=== PATIENT | male | born 1945 | race Caucasian/White ===

== ENCOUNTER 2024-06-22 15:14 | Emergency (ER) | payer MEDICARE, OTHER, SELFPAY ==
[2024-06-22 16:18] VITALS: BP 152/88; PULSE 89; RESP 18; TEMP 36.4; O2SAT 97; BMI 32.3
--- NOTE | 2024-06-22 16:19 | ED.GENADULT ---
HPI - General Adult General Chief complaint: Urogenital-Male Stated complaint: cant urinate Time Seen by Provider: 06/22/24 20:52 Source: patient Limitations: no limitations History of Present Illness ED Provider: Ana Ackerman PA-C HPI narrative: 78-year-old male presents with urinary retention since 3:00 a.m.. Patient has not had this issue before. He is extremely uncomfortable. Denies recent dysuria, hematuria or fever. No nausea vomiting. Related Data Allergies Allergy/AdvReac Type Severity Reaction Status Date / Time No Known Allergies Allergy Verified 06/22/24 16:20 Review of Systems Review of Systems: Yes all other systems are reviewed and are negative Constitutional: Constitutional: Denies fatigue and Denies fever(s) Cardiovascular: Cardiovascular: Denies chest pain and Denies dyspnea Respiratory: Respiratory: Denies cough and Denies dyspnea Gastrointestinal: Gastrointestinal: Reports abdominal pain, Denies nausea and Denies vomiting Genitourinary: Genitourinary: Denies hematuria, Reports difficulty urinating and Denies dysuria Musculoskeletal: Musculoskeletal: Denies back pain Endocrine: Endocrine: Denies fatigue PMF Past Medical History Attestation statement: The following information was validated with the patient. Social History Social History Advance Directives: No Advance Directives Information Provided: No Do you have a plan to hurt others: No Plan Physical Exam ED Vital Signs: Vital Signs - 24 hr 06/22/24 16:18 Temperature 97.6 F Pulse Rate 89 Respiratory Rate 18 Blood Pressure 152/88 H Pulse Oximetry 97 Oxygen Delivery Method Room Air BMI result Body Mass Index 32.3 Const Other: Alert Orientation/consciousness: patient oriented x3 Resp Effort & Inspection: normal respiratory effort Cardio Other: normal peripheral perfusion Skin Other: warm dry no rash Neuro General: patient oriented x3, gait normal, no focal motor deficits and CN's II-XI intact bilaterally Psych Other: cooperative Course Course Course Narrative: This is a rapid medical exam performed by Faiza Paz NP: Additional HPI, ROS, PE not included below will be deferred to primary provider. Patient is a 78-year-old male presenting with complaint of no urination since 3am, pain to urethral meatus, states every time he tries to urinate which is every 15 minutes or so, nothing comes out. Denies fevers. On ASA, not otherwise anticoagulated. Plan: labs, bladder scan Medical Decision Making Medical Decision Making [facility] Narrative: 78-year-old male presents with urinary retention since 3:00 a.m.. Patient has not had this issue before. He is extremely uncomfortable. Denies recent dysuria, hematuria or fever. No nausea vomiting. no known chronic issues, he likely has BPH History: Per patient I have considered the following differential diagnoses: Urinary retention secondary to BPH, bladder mass, renal colic, Plan: They perform bedside bladder scan he is greater than 600 mL, we will place a Ackerman. Screening labs were already obtained, we will collect a urine sample at this time. The patient was not having any back pain nausea vomiting fever to suggest an obstructing kidney stone. He has not had any painful urination or hematuria, to suggest a urinary tract infection. He has not had any known pathology of the bladder. We will hold on imaging for now. I have independently reviewed the following tests: Labs: No leukocytosis, not anemic, no electrolyte abnormality, urine not infected Lab Data 06/22/24 16:32 06/22/24 16:32 Labs: Lab Results 06/22/24 06/22/24 Range/Units 16:32 21:56 WBC 7.1 (4.8-10.8) X10*3/uL RBC 5.22 (4.60-5.80) X10*6/uL Hgb 15.8 (14.0-18.0) g/dl Hct 48.2 (42.0-52.0) % MCV 92.3 (80.0-98.0) fL MCH 30.3 (27.0-33.0) pg MCHC 32.8 (31.0-36.0) g/dl RDW 13.1 (11.0-16.0) % Plt Count 168 (160-400) X10*3/uL MPV 9.3 L (9.4-12.4) fL Immature Gran % (Auto) 0.1 (0.0-0.4) % Neut % (Auto) 70.8 (45-73) % Lymph % (Auto) 17.3 L (20-40) % [place] % (Auto) 9.4 (2-11) % Eos % (Auto) 1.4 (0-4) % Baso % (Auto) 1.0 (0-2) % Lymph # (Auto) 1.2 (1.2-4.9) X10*3/uL [place] # (Auto) 0.7 (0.1-1.2) X10*3/uL Eos # (Auto) 0.1 (0.0-0.4) X10*3/uL Baso # (Auto) 0.1 (0.0-0.2) X10*3/uL Abs Immat Gran (auto) 0.01 (0.00-0.03) X10*3/uL Absolute Neuts (auto) 5.0 (2.0-8.3) x10*3/uL Absolute Nucleated RBC 0.000 (0.0-0.012) X10*3/uL Nucleated RBC % (auto) 0.0 (0.0-0.2) /100WBC PT 13.0 H (10.9-12.4) SEC INR 1.1 (0.9-1.1) Sodium 144 (135-145) mmol/L Potassium 4.7 (3.3-5.1) mmol/L Chloride 105 (96-108) mmol/L Carbon Dioxide 30 H (22-29) mmol/L Anion Gap 14 (12-20) BUN 12 (9-16) mg/dL Creatinine 1.06 (0.5-1.4) mg/dL Estim Creat Clear Calc 60.5 Estimated GFR > 60 Random Glucose 103 (60-115) mg/dL Calcium 9.4 (8.4-10.2) mg/dL Total Bilirubin 0.5 (0.0-1.0) mg/dL AST 25 (5-37) U/L ALT 16 (0-40) U/L Alkaline Phosphatase 67 (39-117) U/L Total Protein 8.2 H (6.5-8.0) g/dL Albumin 4.3 (3.5-5.0) g/dL Urine Color Yellow Urine Appearance Clear Urine pH 5.5 (5.0-9.0) Ur Specific [place] 1.015 (1.005-1.025) Urine Protein 300 (3+) H (Neg-Trace) mg/dL Urine Glucose (UA) Negative (Negative) mg/dL Urine Ketones Negative (Negative) mg/dL Urine Blood Small (1+) H (Negative) Urine Nitrite Negative (Negative) Ur Leukocyte Esterase Negative (Negative) Urine RBC 6-10 H (0-2) /HPF Urine WBC 0-5 (0-5) /HPF Ur Squamous Epith Cells 0-2 (0-2) /HPF Urine Bacteria None Seen (None Seen) Hyaline Casts 0-2 (0-2) /LPF Discharge Plan Discharge Clinical Impression: Acute urinary retention Patient Disposition: Home, Self-Care Instructions: Urinary Retention in Men (ED), Ackerman Catheter Placement and Care (ED) Additional Instructions: all of your screening labs were normal, the urine is not infected. You need to keep the Ackerman catheter in place until you follow up with our urology service. Call them tomorrow to make a follow up appointment. Referrals: Shaun Yeboah MD [Physician] - (new urinary retention, ackerman placed) Print Language: Japanese
[2024-06-22 16:56] LABS: MANUAL DIFF FLAG NO
[2024-06-22 16:58] LABS: Basophils Absolute Auto 0.1 X10*3/uL (0.0-0.2); Eosinophils Absolute Auto 0.1 X10*3/uL (0.0-0.4); Eosinophils Percent Auto 1.4 % (0-4); Hematocrit 48.2 % (42.0-52.0); Hemoglobin 15.8 g/dl (14.0-18.0); Imm Gran Abs Auto 0.01 X10*3/uL (0.00-0.03); Imm Gran Pct Auto 0.1 % (0.0-0.4); Lymphocytes Absolute Auto 1.2 X10*3/uL (1.2-4.9); Lymphocytes Percent Auto 17.3 % (20-40); Mean Corpuscular HGB Conc 32.8 g/dl (31.0-36.0); Mean Corpuscular Hemoglobin 30.3 pg (27.0-33.0); Mean Corpuscular Volume 92.3 fL (80.0-98.0); Mean Platelet Volume 9.3 fL (9.4-12.4); Monocytes Absolute Auto 0.7 X10*3/uL (0.1-1.2); Monocytes Percent Auto 9.4 % (2-11); Neutrophils Percent Auto 70.8 % (45-73); Platelet Count 168 X10*3/uL (160-400); Red Blood Count 5.22 X10*6/uL (4.60-5.80); Red Cell Distribution Width 13.1 % (11.0-16.0); White Blood Count 7.1 X10*3/uL (4.8-10.8)
[2024-06-22 17:07] LABS: INTERNATIONAL NORM RATIO 1.1 (0.9-1.1)
[2024-06-22 17:15] LABS: Alanine Aminotransferase 16 U/L (0-40); Albumin Level 4.3 g/dL (3.5-5.0); Alkaline Phosphatase 67 U/L (39-117); Anion Gap 14 (12-20); Aspartate Amino Transferase 25 U/L (5-37); Bilirubin Total 0.5 mg/dL (0.0-1.0); Blood Urea Nitrogen 12 mg/dL (9-16); Calcium 9.4 mg/dL (8.4-10.2); Carbon Dioxide 30 mmol/L (22-29); Chloride 105 mmol/L (96-108); Creatinine Clr Calc Pharmacy 60.5; Estimated Glomerular Filt Rate > 60; Glucose Random 103 mg/dL (60-115); Potassium 4.7 mmol/L (3.3-5.1); Sodium 144 mmol/L (135-145); Total Protein 8.2 g/dL (6.5-8.0)
--- OUTSIDE RECORDS SUMMARY | 2024-06-22 20:10 | XMS_ITS | Encounter Summary ---
Author Organization [employer] Address [address] [place] [address] Care Team Providers Care Distribution Warehouse Manager Name Role Phone Sharri Mills MD Primary Care Provider [phone] Reason for Visit * Auth/Cert (Routine) Specialty Diagnoses / Procedures Referred By Contac t Referred To Contact Diagnoses Aortic valve stenosis, etiology of cardiac valve disease unspecified Coronary artery disease involving mcgrath coronary artery of mcgrath heart without angina pectoris Procedures [place] CORONARY ANGIO/LV GRAM/LT HEART CATH Left heart cath / Coronary angiography Mandy Hernandez MD [address] [place] [address] Dr Limon [address] [place] [address] Phone: tel: fax: [facility] S[facility] [address] [place] [address] Phone: tel: Referral ID Status Reason Start Date Expiration Date Visits Re quested Visits Authorized [id number] 1 1 Encounter Details Date Type Department Care Team (Latest Contact Info) Description 06/10/2024 7:23 AM EST - 06/10/2024 2:07 PM EST Hospital Encounter [facility] [address] [place] [address] Mandy Hernandez MD [address] [place] [address] Dr Limon [address] [place] [id number] Aortic valve stenosis, etiology of cardiac valve disease unspecified; Coronary artery disease involving mcgrath coronary artery of mcgrath heart without angina pectoris; Hairy cell leukemia, in remission (CMS/HCC); Asbestosis (CMS/HCC); Type 2 diabetes mellitus with stage 3 chronic kidney disease, without long-term current use of insulin, unspecified whether stage 3a or 3b CKD ([facility]) Discharge Disposition: Home or Self Care Social History Tobacco Use Types Packs/Day Years Used Date Smoking Tobacco: Some Days Cigarettes Started: 1960 Smokeless Tobacco: Never Tobacco Cessation:Ready to Q uit: Not Asked; Counseling Given: Not Answered Alcohol Use Standard Drinks/Week Comments Yes 12 (1 standard drink = 0.6 oz pu re alcohol) 12 cans of beer weekly per pt Sex and Gender Information Value Date Recorded Sex Assigned at Male 06/08/2024 11:45 AM EST Legal Sex Male 10:29 AM EST Gender Identity Male 06/08/2024 11:45 AM EST Sexual Orientation Straight 06/08/2024 11 :45 AM EST documented as of this encounter Last Filed Vital Signs Vital Sign Reading Time Taken Comments Blood Pressure 125/73 06/10/2024 1:00 PM EST Pulse 86 06/10/2024 1:00 PM EST Temperature 36.1 ??C (96.9 ??F) 06/10/2024 7:52 AM ES T Respiratory Rate 17 06/10/2024 1:00 PM EST Oxygen Saturation 97% 06/10/2024 1:00 PM EST Inhaled Oxygen Concentration - - Weight - - Height - - Body Mass Index - - documented in this encounter Medications at Time of Discharge albuterol HFA (PROAIR HFA ; PROVENTIL HFA ; VENTOLIN HFA) 90 mcg/actuation inhaler Inhale 2 puffs by mouth 4 (four) times a day. 10/01/2021 aspirin 325 mg tablet Take 1 tablet (325 mg total) by mouth daily. insulin glargine (Lantus Solostar U-100 Insulin) 100 unit/mL (3 mL) injection pen Take 34-36 units at bedtime 30 mL 2 04/26/2024 isosorbide mononitrate (IMDUR) 30 mg 24 hr tablet Take 3 tablets (90 mg total) by mouth 1 (one) time each day. 270 each 1 03/23/2024 lisinopriL (PRINIVIL,ZESTRIL ) 20 mg tablet Take 1 tablet (20 mg total) by mouth 1 (one) time each day. 90 each 1 03/23/2024 metFORMIN (GLUCOPHAGE) 500 mg tablet Take 1 tablet (500 mg total) by mouth 2 (two) times a day with meals. 180 each 1 03/23/2024 metoprolol succinate (TOPROL-XL) 50 mg 24 hr tablet Take 1 tablet (50 mg total) by mouth 1 (one) time each day. Do not crush or chew. 90 each 1 03/23/2024 nitroglycerin (NITROSTAT) 0.[address] 1 tablet (0.4 mg total) under the tongue every 5 (five) minutes if needed. 12/04/2021 omeprazole (PriLOSEC) [address] capsule Take 1 capsule (20 mg total) by mouth 1 (one) time each day. Do not crush or chew. 90 each 1 03/23/2024 pravastatin (PRAVACHOL) 40 mg tablet Take 1 tablet (40 mg total) by mouth 1 (one) time each day. 90 each 1 03/23/2024 tamsulosin (FLOMAX) 0.4 mg 24 hr capsule Take 1 capsule (0.4 mg total) by mouth 1 (one) time each day. Capsules should be taken 30 minutes following the same meal each day. 90 each 1 03/23/2024 Trelegy Ellipta 100-62.5-25 mcg inhaler Inhale 1 puff (100 mcg total) by mouth 1 (one) time each day. 07/10/2023 Trulicity 3 mg/0.5 mL pen injector injectionIndicati ons:Type 2 diabetes mellitus with stage 3 chronic kidney disease, without long-term current use of insulin, unspecified whether stage 3a or 3b CKD ([facility]) Inject 0.5 mL (3 mg total) under the skin 1 (one) time per week. 6 mL 1 03/23/2024 documented as of this encounter Discharge Disposition Disposition Code Departure Means Destination Home or Self Care documented in this encounter H&P Notes * Mandy Hernandez MD - 06/10/2024 9:16 AM EST History Of Present Illness (include Chief Complaint): Cristobal Balderas is a 78 y.o. male presenting with shortness of breath and fatigue due to severe aortic stenosis and is scheduled for left and right heart catheterization as an evaluation prior to Transcatheter aortic valve replacement possibly considering age and other comorbidities. The risk and benefit of the procedure have been discussed with the patient. No contrast allergy. Past Medical History: He has a past medical history of Alcohol use disorder, severe, dependence ([facility]/HCC) (06/30/2019), Allergic rhinitis, Anxiety, Aortic stenosis, Asbestosis ([facility]), CAD (coronary artery disease), COPD (chronic obstructive pulmonary disease) ([facility]), 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 ([facility]), 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[facility]), Hearing loss, Hypercholesteremia, Hypertension, Microalbuminuria, Nocturnal hypoxemia due to emphysema ([facility]), NETTA (obstructive sleep apnea), NETTA (obstructive sleep apnea), Prostatism, Pulmonary nodules, and Splenomegaly. Surgical History: He has a past surgical history that includes Colonoscopy (08/12/2014) and angioplasty. Family History: family history includes Cataracts in his mother; Diabetes in his father. Social History: He reports that he has been smoking cigarettes. He started smoking about 64 years ago. He has neverused smokeless tobacco. He reports current alcohol use of about 12.0 standard drinks of alcohol perweek. He reports that he does not use drugs. Allergies: Patient has no known allergies. Home Medications: Medications Prior to Admission Medication Sig Dispense Refill Last Dose/Taking albuterol HFA (PROAIR HFA ; PROVENTIL HFA ; VENTOLIN HFA) 90 mcg/actuation inhaler Inhale 2 puffs by mouth 4 (four) times a day. More than a month aspirin 325 mg tablet Take 1 tablet (325 mg total) by mouth daily. 06/05/2024 insulin glargine (Lantus Solostar U-100 Insulin) 100 unit/mL (3 mL) injection pen Take 34-36 units at bedtime 30 mL 2 06/05/2024 isosorbide mononitrate (IMDUR) 30 mg 24 hr tablet Take 3 tablets (90 mg total) by mouth 1 (one) time each day. 270 each 1 06/05/2024 lisinopriL (PRINIVIL,ZESTRIL) 20 mg tablet Take 1 tablet (20 mg total) by mouth 1 (one) time each day. 90 each 1 06/05/2024 metFORMIN (GLUCOPHAGE) 500 mg tablet Take 1 tablet (500 mg total) by mouth 2 (two) times a day withmeals. 180 each 1 06/05/2024 metoprolol succinate (TOPROL-XL) 50 mg 24 hr tablet Take 1 tablet (50 mg total) by mouth 1 (one) time each day. Do not crush or chew. 90 each 1 06/05/2024 nitroglycerin (NITROSTAT) 0.[address] 1 tablet (0.4 mg total) under the tongue every 5 (five) minutes if needed. More than a month omeprazole (PriLOSEC) [address] capsule Take 1 capsule (20 mg total) by mouth 1 (one) time each day.Do not crush or chew. 90 each 1 06/05/2024 pravastatin (PRAVACHOL) 40 mg tablet Take 1 tablet (40 mg total) by mouth 1 (one) time each day. 90each 1 06/05/2024 tamsulosin (FLOMAX) 0.4 mg 24 hr capsule Take 1 capsule (0.4 mg total) by mouth 1 (one) time each day. Capsules should be taken 30 minutes following the same meal each day. 90 each 1 More than a month Trelegy Ellipta 100-62.5-25 mcg inhaler Inhale 1 puff (100 mcg total) by mouth 1 (one) time each day. More than a month Trulicity 3 mg/0.5 mL pen injector injection Inject 0.5 mL (3 mg total) under the skin 1 (one) timeper week. 6 mL 1 05/31/2024 Review of Systems Review of system: Constitutional: Generalized fatigue Eyes: Denies blurred vision, discharge, eye irritation, spots in vision, vision loss Head and Neck: Denies any headache, neck pain Ears, Nose, Mouth, Throat: No issues Cardiovascular: Denies chest pain/pressure, claudication, irregular heart beat, orthopnea, palpitations, syncope Respiratory: Shortness of breath Gastrointestinal: Denies any abdominal distention, pain, black stools, diarrhea, dysphagia, vomiting Genitourinary: Denies dysuria, flank pain Musculoskeletal: Denies any joint pain or swelling other than mention in HPI Integumentary: Denie any skin rash or ulcer, pruritus Neurological: Denies any abnormal gait or focal weakness, headache, numbness, seizures, slurred speech Psychiatric: Denies any delusions, emotional problems, homicidalideation, suicidal ideation Hematologic: Denies any bleeding tendency, hemorrhage Last Recorded Vitals: Blood pressure (!) 144/86, pulse 102, temperature 36.1 ??C (96.9 ??F), temperature source Temporal,SpO2 100%. Physical Exam Physical Exam: Appearance: No Acute Distress, Alert Head Exam: Normocephalic and Atraumatic Eyes: Mild Palor, Sclera Anicteric, PERRL, EOMI Neck: Supple, Non-tender, No carotid bruit, thyromegaly or lymphadenopathy Pulmonary: No Accessory Muscle Use, clear to auscultate bilaterally Cardiovascular: JVD/Rhythm/Heart Sound/Added sound-S1 and S2 regular rate and rhythm, grade 1 x 6 systolic murmur with muffled second heart sound Abdominal Inspection: Normal, Soft, Non-tender, Bowel Sounds Present, No Hepatosplenomegaly Rectal Exam: Deferred Extremity: Peripheral Pulses are palpable and symmetrical, no leg edema Musculoskeletal: No obvious joint pain, swelling or deformity Skin: Skin Color Normal, No rash or visible ulcer on limited examination Hematological: No lymphadenopathy or mass Psychiatry: anxiety +, no delusion Relevant Results: Assessment/Plan Active Problems: CAD (coronary artery disease) Aortic stenosis Severe aortic stenosis; preprocedural evaluation with left and right heart catheterization: Echocardiogram and overall clinical picture indicates severe symptomatic aortic stenosis. Echocardiogram showed mean gradient of 42 mmHg. Will plan for left and right heart catheterization and subsequently made the patient in the office for TAVR evaluation. documented in this encounter Procedure Notes * Nenita العلي RN - 06/10/2024 1:11 PM EST Tr band off. Reviewed instructions with pt and . * Jami Bowers RN - 06/10/2024 12:04 PM EST 2 ml released from T R band no oozing or hematoma noted. * Nenita العلي RN - 06/10/2024 10:15 AM EST In recovery awake alert oriented no c/o tr band on right wrist and venous sheath to right brachial intact no bleeding hematoma. Given water. documented in this encounter Plan of Treatment Upcoming Encounters Date Type Department Care Team (Late st Contact Info) Description 06/23/2024 11:20 AM EST Consult [facility] Card[facility] [address] [place] [address] [address] [place] [phone] Mandy Hernandez MD [address] [place] [address] Dr [address] [place] [address] 07/12/2024 9:00 AM EDT Office Visit [facility] Hematology Oncology [address] [place] [address] Kt Roa MD [address] [place] [address] 08/06/2024 9:00 AM EDT Ancillary Procedure [facility] Cardiology [facility] [address] [facility] [address] [place] [address] 08/25/2024 8:00 AM EDT Office Visit Endocrinology [address] [phone] Pippa Marte PA [address] [place] [address] 09/23/2024 8:00 AM EDT Office Visit [facility] - [address] [phone] Ne Summers PA [address] [place] [address] 01/06/2025 1:00 PM EDT Office Visit Nephrology - [place] [address] [place] [address] Bharath Gonzalez MD [address] [place] [address] documented as of this encounter Procedures Procedure Name Priority Date/Time Associated Diagnosis Comments CARDIAC PROCEDURE Routine 06/10/2024 10: 07 AM EST Aortic valve stenosis, etiology of cardiac valve disease unspecified Coronary artery disease involving mcgrath coronary artery of mcgrath heart without angina pectoris POCT ARTERIAL CARDIAC CATH Routine 06/10/2024 9:58 AM EST POCT ARTERIAL CARDIAC CATH Routine 06/10/2024 9:41 AM EST PROCEDURAL ECG Routine 06/10/2024 8:23 AM EST PROTHROMBIN TIME WITH INR STAT 06/10/2024 8:14 AM EST COMPLETE BLOOD COUNT STAT 06/10/2024 8:14 AM EST BASIC METABOLIC PANEL STAT 06/10/2024 8:14 AM EST documented in this encounter Results * LEFT AND RIGHT HEART CATH / CORONARY ANGIOGRAPHY (06/10/2024 10:07 AM EST) Anatomical Region Laterality Modality X-Ray Angiograph y Narrative 06/11/2024 10:12 AM EST Outpatient TAVR evaluation with CT scan TAVR protocol and cardiothoracic surgery evaluation. Continue medical management for coronary artery disease. Coronary Findings Diagnostic Dominance: Right Left Main: The vessel exhibits minimal luminal irregularities. Left Anterior Descending: The vessel exhibits minimal luminal irregularities. Left Circumflex: The vessel exhibits minimal luminal irregularities. Right Coronary Artery: The vessel exhibits minimal luminal irregularities. Intervention No interventions have been documented. Study Details Pre-TAVR Cardiac Cath with left and right heart cath Cardiac Cath Measurements Pressure measurements: RA pressure = 7 mmHg. RV pressure = 40/6; 14 mmHg. PA pressure = 37/15; 25 mmHg. PCW pressure = 9 mmHg. O2 Sats: PA O2 sat = 90%. PV O2 sat = 60%. Calculated measurements: Vijay Cardiac output = 3.9 L/min. Vijay Cardiac index = 1.9 L/min/m2. Cath Recommendations Recommendations: routine post-cath care, continue medical management and Will consider TAVR protocol CT scan as outpatient and cardiothoracic surgery evaluation for TAVR.. Clinical Background 78 y.o. old male with past medical history of coronary artery disease, hypertension, aortic stenosis, hypercholesterolemia, type 2 diabetes, obesity and COPD close complaint of shortness of breath. Stress echocardiogram with mean gradient of 42 mmHg and because of 4.1%. He scheduled for left and right heart catheterization with coronary angiogram. Procedure Details Date of procedure: 06/10/2024 Procedures: left catheterization with coronary angiogram, right heart catheterization Description of the procedure: An informed consent was obtained. An appropriate timeout was performed and patient was medicated with fentanyl and Versed. Local anesthesia was obtained with lidocaine subcutaneously. Using a modified Seldinger technique was used to place an arterial sheath into the right radial artery. A short tipped J-wire was inserted through the sheath and a tiger coronary diagnostic catheter was advanced over the wire. The angiogram was performed using various fluoroscopic angles with hand injections. At the end of the procedure, the catheter was removed over the wire. After completion of angiography, the diagnostic catheters were removed over the J-tipped wire. The TR band was placed and the radial artery sheath was removed with proper technique in an aseptic manner. Radial pulse was checked. No immediate complications were identified with good radial pulse. Right catheterization was performed with right breast vein access under ultrasonographic evidence. Wenona-Margy catheter was used for better catheterization. Findings: Hemodynamics: PA 37/50 mg artery, mean 25 mmHg PCW 9 mmHg RV 40/6 mmHg, mean 14 mmHg RA 7 mmHg Cardiac output 3.8 L/min Frequent index 1.9 L/min/m?? Coronary anatomy: 1. Left main coronary artery: Minimal luminal irregularities 2. Left anterior descending artery: Minimal irregularities. 3. Left circumflex artery: Minimal luminal irregularities. Patent stent in the OM1. 4. Right coronary artery: Minimal irregularities. Dominant vessel giving rise to PDA. Impression: Abdomen troponin indicates that patient does not have any progression of coronary disease and the OM1 stent is widely patent. He only needs aortic valve replacement for severe stenosis therapy by TAVR considering his age and other comorbidities. Plan: Will consider TAVR protocol CT scan as outpatient and cardiothoracic surgery evaluation for TAVR. Mandy Hernandez MD [facility] us Tiffany Chapman [employer] IN[employer]IC[employer] CV CARDIAC CATH PROCED URES Final Result * POCT Cardiac cath blood gas (06/10/2024 9:58 AM EST) pCO2 Cath POCT 50.1 mmHg 06/10/2024 10:00 AM EST [facility] pO2 Cath POCT 62 mmHg 06/10/2024 10:00 AM EST [facility] SO2 Cath POCT 90 % 06/10/2024 10:00 AM EST [facility] Sample Site POCT Aorta 06/10/2024 10:00 AM EST [facility] Device POCT [id number] 06/10/2024 10:00 AM EST [facility] FIO2 POCT 21.0 % 06/10/2024 10:00 AM EST [facility] POCT Comment ROOM AIR 06/10/2024 10:00 AM EST [facility] Blood Aortic structure / Unknown 06/10/2024 9:58 AM EST 06/10/2024 10:02 AM EST us Mandy Hernandez MD LAB POINT OF CARE TE ST DOCKED DEVICE UNSOLICITED RESULTS Final Result [facility] [address] [place] [address], * POCT Cardiac cath blood gas (06/10/2024 9:41 AM EST) pCO2 Cath POCT 51.5 mmHg 06/10/2024 10:00 AM EST [facility] pO2 Cath POCT 32 mmHg 06/10/2024 10:00 AM EST [facility] SO2 Cath POCT 60 % 06/10/2024 10:00 AM EST [facility] Sample Site POCT Pulmonary Artery 06/10/2024 10:00 AM EST [facility] Device POCT [id number] 06/10/2024 10:00 AM EST [facility] FIO2 POCT 21.0 % 06/10/2024 10:00 AM EST [facility] POCT Comment ROOM AIR 06/10/2024 10:00 AM EST [facility] Blood Pulmonary artery structure / Unknown 06/10/2024 9:41 AM EST 06/10/2024 10:02 AM EST Mandy Hernandez MD LAB POINT OF CARE TE ST DOCKED DEVICE UNSOLICITED RESULTS Final Result [facility] [address] [place] [address], * ECG 12 lead - Procedural (No Charge) (06/10/2024 8:23 AM EST) Ventricular Rate ECG 99 BPM GEMUSE Atrial Rate 99 BPM GEMUSE P-R Interval 146 ms GEMUSE QRS Duration 88 ms GEMUSE Q-T Interval 376 ms GEMUSE QTc 482 ms GEMUSE P Wave [place] 48 degrees GEMUSE R [place] 121 degrees GEMUSE T [place] 81 degrees GEMUSE ECG Interpretation Normal sinus rhythm Prolonged QT Abnormal ECG When compared with ECG of 18-NOV-2001 06:57, Vent. rate has increased BY ??38 BPM Nonspecific T wave abnormality now evident in Anterior leads Confirmed by NEHA HUBER ([id number]) on 06/13/2024 8:45:22 AM GEMUSE 06/10/2024 8:23 AM EST 06/13/2024 8:45 AM EST us Mandy Hernandez MD ECG ORDERABLES Final Result GEMUSE * (ABNORMAL) Protime-INR (06/10/2024 8:14 AM EST) Protime 14.1(H) 10.6 - 13.9 sec LAB COAGULATION METHOD 06/10/2024 8:32 AM EST [facility] INR 1.1 LAB COAGULATION METHOD 06/10/2024 8:32 AM [facility] Blood Venous blood specimen / Unknown Venipuncture / Unknown 06/10/2024 8:14 AM EST 06/10/2024 8:20 AM EST Mandy Hernandez MD LAB BLOOD ORDERABLES Final Res ult Performing Organization Address [facility] Co de Phone Number [facility] [address] [place] [address], * (ABNORMAL) Basic metabolic panel (06/10/2024 8:14 AM EST) Pathologist [facility] Sodium 141 133 - 145 mmol/L LAB CHEMISTRY METHOD 06/10/2024 8:49 AM [facility] Potassium 4.0 3.5 - 5.5 mmol/L LAB CHEMISTRY METHOD 06/10/2024 8:49 AM [facility] Chloride 110 96 - 110 mmol/L LAB CHEMISTRY METHOD 06/10/2024 8:49 AM [facility] CO2 26 21 - 32 mmol/L LAB CHEMISTRY METHOD 06/10/2024 8:49 AM [facility] Anion Gap 5 3 - 11 LAB CHEMISTRY METHOD 06/10/2024 8:49 AM [facility] Glucose 163(H) 70 - 100 mg/dL LAB CHEMISTRY METHOD 06/10/2024 8:49 AM [facility] BUN 18 5 - 25 mg/dL LAB CHEMISTRY METHOD 06/10/2024 8:49 AM [facility] Creatinine 1.24 0.70 - 1.30 mg/dL LAB CHEMISTRY METHOD 06/10/2024 8:49 AM [facility] eGFR 60 >=60 mL/min/1. 73m2 LAB CHEMISTRY METHOD 06/10/2024 8:49 AM [facility] Comment:Calculation based on the??Chronic Kidney Disease Epidemiology Collaboration (CKD-EPI) equation refit??without adjustment for race. BUN/Creatinine Ratio 14.5 LAB CHEMISTRY METHOD 06/10/2024 8:49 AM [facility] Calcium 9.0 8.5 - 10.5 mg/dL LAB CHEMISTRY METHOD 06/10/2024 8:49 AM [facility] Blood Venous blood specimen / Unknown Venipuncture / Unknown 06/10/2024 8:14 AM EST 06/10/2024 8:21 AM EST us Mandy Hernandez MD LAB BLOOD ORDERABLES Final Res ult [facility] [address] [place] [address], * CBC (06/10/2024 8:14 AM EST) WBC 5.7 4.8 - 10.8 K/mcL LAB HEMETOLOGY METHOD 06/10/2024 8:23 AM [facility] RBC 5.00 4.50 - 5.50 M/mcL LAB HEMETOLOGY METHOD 06/10/2024 8:23 AM [facility] Hemoglobin 15.4 13.5 - 17.5 g/dL LAB HEMETOLOGY METHOD 06/10/2024 8:23 AM [facility] Hematocrit 46.8 42.0 - 54.0 % LAB HEMETOLOGY METHOD 06/10/2024 8:23 AM EST [facility] MCV 94.0 79.0 - 98.0 FL LAB HEMETOLOGY METHOD 06/10/2024 8:23 AM EST [facility] MCH 30.9 27.0 - 32.0 pcg LAB HEMETOLOGY METHOD 06/10/2024 8:23 AM EST [facility] MCHC 32.9 32.0 - 37.0 g/dL LAB HEMETOLOGY METHOD 06/10/2024 8:23 AM EST [facility] RDW 13.1 11.0 - 15.0 % LAB HEMETOLOGY METHOD 06/10/2024 8:23 AM EST [facility] Platelets 172 130 - 400 K/mcL LAB HEMETOLOGY METHOD 06/10/2024 8:23 AM [facility] MPV 9.4 7.0 - 11.0 FL LAB HEMETOLOGY METHOD 06/10/2024 8:23 AM EST [facility] NRBC 0.0 <1.0 % LAB HEMETOLOGY METHOD 06/10/2024 8:23 AM EST [facility] NRBC Absolute 0.00 <0.10 K/mcL LAB HEMETOLOGY METHOD 06/10/2024 8:23 AM [facility] Blood Venous blood specimen / Unknown Venipuncture / Unknown 06/10/2024 8:14 AM EST 06/10/2024 8:21 AM EST us Mandy Hernandez MD LAB BLOOD ORDERABLES Final Res ult [facility] [address] [place] [address], documented in this encounter Visit Diagnoses Diagnosis Aortic valve stenosis, etiology of cardiac valve disease unspecified Coronary artery disease involving mcgrath coronary artery of mcgrath heart without angina pectoris Hairy cell leukemia, in remission (CMS/HCC) Asbestosis (CMS/HCC) Type 2 diabetes mellitus with stage 3 chronic kidney disease, without long-term current use of insulin, unspecified whether stage 3a or 3b CKD ([facility]) Aortic valve stenosis, etiology of cardiac valve disease unspecified Coronary artery disease involving mcgrath coronary artery of mcgrath heart without angina pectoris documented in this encounter Admitting Diagnoses Diagnosis Aortic stenosis Aortic valve disorders CAD (coronary artery disease) Coronary atherosclerosis of unspecified type of vessel, mcgrath or graft documented in this encounter Discontinued Medications Medication Sig Discontinue Reason Start Date End Da te sulfamethoxazole-trim ethoprim (BACTRIM DS,SEPTRA DS) 800-160 mg per tablet Take 1 tablet (160 mg of trimethoprim total) by mouth 2 (two) times a day. Only take on -W-08/28/2020 06/10/2024 documented as of this encounter Active and Recently Administered Medications Times are shown in EST. PRN Medication Order 06/08/2024 06/09/2024 06/10/2024 fentaNYL (PF) (SUBLIMAZE) injection (CANCELED) As needed, Starting on Asuncion 06/10/24 at 0915, Intraprocedure 0915 (Given - Provid er: Shaun Beebe RN)0944 (Given - Provider: Shaun Beebe RN) heparin (UFH) injection (CANCELED) As needed, Starting on Asuncion 06/10/24 at 0947, Intraprocedure 0947 (Canceled Entry - Provider: Shaun Beebe RN)0949 (Given - Provider: Shaun Beebe RN) iopamidoL (ISOVUE-370) 370 mg iodine /mL (76 %) injection (CANCELED) As needed, Starting on Asuncion 06/10/24 at 0954, Intraprocedure 0954 (Given - Provid er: Mandy Hernandez MD) lidocaine (XYLOCAINE) 1 % injection (CANCELED) As needed, Starting on Asuncion 06/10/24 at 0954, Intraprocedure 0954 (Given - Provid er: Mandy Hernandez MD) midazolam (VERSED) injection (CANCELED) As needed, Starting on Asuncion 06/10/24 at 0916, Intraprocedure 0916 (Given - Provid er: Shaun Beebe RN) nitroglycerin (TRIDIL) bolus 200 mcg/mL (CANCELED) As needed, Starting on Asuncion 06/10/24 at 0946, Intraprocedure 0946 (Given - Provid er: Mandy Hernandez MD) documented in this encounter Orders Medications Ordered That Richard ht Not Have Been Administered Count Last Ordered Date First Ordered Date fentaNYL (PF) (SUBLIMAZE) injection 1 06/10 heparin (UFH) injection 1 06/10/2024 iopamidoL (ISOVUE-370) 370 m g iodine /mL (76 %) injection 1 06/10/2024 lidocaine (XYLOCAINE) 1 % injection 1 06/10 midazolam (VERSED) injection 1 06/10/2024 nitroglycerin (TRIDIL) bolus 200 mcg/mL 1 0 06/10/2024 Discharge Count Last Ordered Date First Orde red Date DISCHARGE PATIENT 1 06/10/2024 documented in this encounter Additional Health Concerns Assessment Noted Time PHQ-9 Depression Total Score: 0 03/19/20 24 1:17 PM EST A fall risk assessment has been complete d for the patient 03/19/2024 1:13 PM EST documented as of this encounter Care Teams Distribution Warehouse Manager Relationship Specialty Start Date End Date Sharri Mills MD [address] [place] [address] PCP - General 11/23/01 documented as of this encounter
--- OUTSIDE RECORDS SUMMARY | 2024-06-22 20:10 | XMS_ITS ---
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 AHI 14. 11 obstructive apneas and 58 hypopneas. Average oxygen saturation 92% with oxygen rebecca 77%. Obstructive sleep apnea-mild mostly hypopneas but with some obstructive apneas and nocturnal hypoxemia 8% of the study; based on 2021 home sleep test. Nocturnal hypoxia 12/27/2020 Overview (03/22/2024): 12/21/2020 overnight oximetery shows Decrease in oxygen during 11min of sleep which qualifies patient for oxygen during night. Lowest oxygen was 79% CAD (coronary artery disease) 09/11/2020 Overview (03/22/2024): OM stent 2001 Cath March 30, 2020 revealing normal left main, proximal LAD 30%, left circumflex prior proximal stent patent, proximal RCA 30% lesion with moderate aortic stenosis and 29 mm gradient between the LV and aorta. Medical therapy was recommended Last Assessment & Plan: He denies any anginal symptoms. He has not had to use his as needed nitro in months. He will continue on guideline directed medical therapy of aspirin, statin, metoprolol and isosorbide. Instructed to call 911 or go to the emergency room should the patient begin to experience chest pain or pressure lasting greater than 10 minutes does not resolve with rest. Assessment & Plan (05/10/2024 10:38 AM EST): Patient denies any anginal symptoms. He continues on cardioprotective medical therapy of Aspirin, isosorbide, metoprolol and statin. He informs me he has not had to use his as needed nitroglycerin in almost a full year however he does not to exert himself like he used to do in the setting of fatigue and breathlessness. Cardiac catheterization to be performed as outlined above. Instructed to call 911 or go to the emergency room should the patient begin to experience chest pain or pressure lasting greater than 10 minutes does not resolve with rest. Assessment & Plan (03/23/2024 11:52 AM EST): Aortic stenosis 09/16/2019 Overview (03/22/2024): 09/14 mod Mean gradient 29mmHg on cath 03/2020 severe , seeing cardiology Last Assessment & Plan: Euvolemic upon exam today. He denies chest pain, presyncope or syncope. He denies shortness of breath. I am going to update surveillance echocardiogram to further evaluate for progression of aortic stenosis. Assessment & Plan (05/10/2024 10:38 AM EST): The patient appears euvolemic upon exam today. He is augmented his activities in order to not elicit symptoms as outlined above. He is relatively sedentary. He would be unable to tolerate ETT to further evaluate symptomatic aortic stenosis in the setting of balance issues. Reviewed with Dr. Maldonado, we will move forward with cardiac catheterization to further evaluate coronary anatomy as well as degree of aortic stenosis. I discussed aortic stenosis and that this is a disease of progression and that the only solution would be valve replacement. I discussed the risk of cardiac catheterization including risk for damage to access site, risk for bleeding, stroke, kidney damage, heart attack, ventricular arrhythmia, pericardial effusion and . The patient understands his risks and agrees to proceed. 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 120PPD. Sees thoracic surgery for lung cancer screen. 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 Type II diabetes mellitus with ophthalmic manife stations 12/01/2013 Overview (03/22/2024): NS noted on eye exam 12/13/11. Microalbuminuria 06/26/2012 Prostatism 05/02/2010 Hypertension 04/15/2007 Overview (03/22/2024): Last Assessment & Plan: Well-controlled during today's exam with a reading of 120/76. I have made no changes to his medications. Educated on the importance of diet lifestyle to help further assist in reducing blood pressure. The patient was encouraged to follow low-salt low-fat diet, make purposeful strides towards weight loss, and engage in routine aerobic exercise as tolerated. Assessment & Plan (05/10/2024 10:38 AM EST): Mildly elevated during today's exam with a reading of 144/76. Educated on the importance of diet lifestyle to help further assist in reducing blood pressure. The patient was encouraged to follow low-salt low-fat diet, make purposeful strides towards weight loss, and engage in routine aerobic exercise as tolerated. 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 This revealed an LDL of 155. This is at goal less than 70 in the setting of coronary artery disease. He will continue on his current dose of statin and be mindful of his dietary fat intake. Assessment & Plan (03/23/2024 11:52 AM EST): Orders: Lipid panel with reflex to direct LDL; Future Old CA (myocardial infarction) 07/07/2005 Overview (03/22/2024): IWMI 11/27 obtuse marginal Current Oncology Plans No current plan information found. Past Plans No past plan information found. Radiation Treatments * No radiation treatments are documented for this patient in [facility]. Treatments may have been administered in another system. Lifetime Dose Tracking * Chemical Lifetime Dose Automatic Entry Manual Entr y Radiation 536 mGy 0 mGy 536 mGy Fluoro Time 4.7 minutes 0 minutes 4.7 minutes Resolved Problems Problem Noted Date Diagnosed Date Resolved Date Alcohol use disorder, severe, dependence 06/30/2019 03/22/2024
--- OUTSIDE RECORDS SUMMARY | 2024-06-22 20:10 | XMS_ITS | Clinical Summary ---
Author Organization [facility] Address [address] [place] [address] Care Team Providers Care Mobile Ui Developer Name Role Phone Sharri Mills MD Primary Care Provider [phone] Allergies No known active allergies Medications Medication Sig Dispensed Refills Start Date End Date Status omeprazole (PriLOSEC) 20 MG capsule Take 1 capsule (20 mg total) by mouth daily. 0 Active lisinopril (PRINIVIL,ZESTRIL) tablet 20 mg Take 1 tablet (20 mg total) by mouth daily. 0 Active metFORMIN (GLUCOPHAGE) tablet 500 mg Take 1 tablet (500 mg total) by mouth 2 (two) times a day with meals. 0 Active metoprolol succinate (TOPROL-XL) 24 hr tablet 50 mg Take by mouth daily. 0 Ac tive simvastatin (ZOCOR) tablet 40 mg Take 1 tablet (40 mg total) by mouth every night at bedtime. 0 Active tamsulosin (FLOMAX) 0.4 MG CAPS Take 1 capsule (0.4 mg total) by mouth daily. 0 Active aspirin 325 MG tablet Take 1 tablet (325 mg total) by mouth daily. 0 Active sulfamethoxazole-t rimethoprim (BACTRIM DS) 800-160 MG per tablet Take 1 tablet (160 mg of trimethoprim total) by mouth 2 (two) times a day. Only take on 28 tablet 2 08/28/2020 Active Active Problems No known active problems Social History Tobacco Use Types Packs/Day Years Used Date Smoking Tobacco: Former Smokeless Tobacco: Never Comments:quit a month ago Alcohol Use Standard Drinks/Week Comments Yes 0 (1 standard drink = 0.6 oz pur e alcohol) beer Sex and Gender Information Value Date Recorded Sex Assigned at Not on file Gender Identity Not on file Sexual Orientation Not on file Job Start Date Occupation Industry Not on file Not on file Not on file Last Filed Vital Signs Vital Sign Reading Time Taken Comments Blood Pressure 107/48 07/23/2023 9:51 AM EDT Pulse 85 07/23/2023 9:51 AM EDT Temperature 36.6 ??C (97.8 ??F) 07/23/2023 9:51 AM ED T Respiratory Rate 18 10/05/2019 10:00 AM EDT Oxygen Saturation 98% 07/23/2023 9:51 AM EDT Inhaled Oxygen Concentration - - Weight 94.8 kg (209 lb) 07/23/2023 9:51 AM EDT Height 167.6 cm (5' 6 ) 11/08/2020 8:50 AM EDT Body Mass Index 33.73 11/08/2020 8:50 AM EDT Plan of Treatment Health Maintenance Due Date Last Done Comments Hepatitis C Screening 1945 COVID-19 Vaccine (#1) 1950 Depression Screening 1957 Preventative Health Evaluation 08/15/1963 Fall Risk Assessment 2010 RSV Adult > 60+ Yrs or (1 - 1-dose 75+ series) 2020 Influenza Vaccine (#1) 2023 , 03/05/2022, 01/17/2021, Additional history exists DTap / Tdap / Td (3 - Td or Tdap) 05/13/2028 05/13/2018, 11/25/2007, 08/26/1997 Pneumococcal Vaccine Completed 01/17/2021, 08/31/2014, 12/20/2010, Additional history exists Shingrix-Zoster Vaccine Completed 04/07/2023, 12/21 Hepatitis B Vaccines Aged Out No long er eligible based on patient's age to complete this topic RSV Ped < 20 months Aged Out No longe r eligible based on patient's age to complete this topic Care Teams Mobile Ui Developer Relationship Specialty Start Date End Date Sharri Milsl MD PCP - General Internal Medicine 07/09/19
--- OUTSIDE RECORDS SUMMARY | 2024-06-22 20:10 | XMS_ITS | Clinical Summary ---
Author Organization [address] Address [address] [place] [phone] Phone Care Team Providers Care Figure Clerk Name Role Phone Sharri Mills MD Primary Care Provider [phone] Allergies No known active allergies Medications aspirin 325 mg tablet Take 1 tablet (325 mg total) by mouth daily. Active albuterol HFA (PROAIR HFA ; PROVENTIL HFA ; VENTOLIN HFA) 90 mcg/actuation inhaler Inhale 2 puffs by mouth 4 (four) times a day. 10/02/19 22 Active nitroglycerin (NITROSTAT) 0.[address] 1 tablet (0.4 mg total) under the tongue every 5 (five) minutes if needed. 12/05/19 22 Active Trelegy Ellipta 100-62.5-25 mcg inhaler Inhale 1 puff (100 mcg total) by mouth 1 (one) time each day. 07/10/19 24 Active isosorbide mononitrate (IMDUR) 30 mg 24 hr tablet Take 3 tablets (90 mg total) by mouth 1 (one) time each day. 270 each 1 03/23/20 24 Active lisinopriL (PRINIVIL,ZEST RIL) 20 mg tablet Take 1 tablet (20 mg total) by mouth 1 (one) time each day. 90 each 1 03/23/20 24 Active metFORMIN (GLUCOPHAGE) 500 mg tablet Take 1 tablet (500 mg total) by mouth 2 (two) times a day with meals. 180 each 1 03/23/20 24 Active metoprolol succinate (TOPROL-XL) 50 mg 24 hr tablet Take 1 tablet (50 mg total) by mouth 1 (one) time each day. Do not crush or chew. 90 each 1 03/23/20 24 Active omeprazole (PriLOSEC) [address] capsule Take 1 capsule (20 mg total) by mouth 1 (one) time each day. Do not crush or chew. 90 each 1 03/23/20 24 Active pravastatin (PRAVACHOL) 40 mg tablet Take 1 tablet (40 mg total) by mouth 1 (one) time each day. 90 each 1 03/23/20 24 Active tamsulosin (FLOMAX) 0.4 mg 24 hr capsule Take 1 capsule (0.4 mg total) by mouth 1 (one) time each day. Capsules should be taken 30 minutes following the same meal each day. 90 each 1 03/23/20 24 Active Trulicity 3 mg/0.5 mL pen injector injectionIndic ations:Type 2 diabetes mellitus with stage 3 chronic kidney disease, without long-term current use of insulin, unspecified whether stage 3a or 3b CKD (CMS/HCC) Inject 0.5 mL (3 mg total) under the skin 1 (one) time per week. 6 mL 1 03/23/20 24 Active insulin glargine (Lantus Solostar U-100 Insulin) 100 unit/mL (3 mL) injection pen Take 34-36 units at bedtime 30 mL 2 04/26/20 24 Active sulfamethoxazo le-trimethopri m (BACTRIM DS,SEPTRA DS) 800-160 mg per tablet Take 1 tablet (160 mg of trimethoprim total) by mouth 2 (two) times a day. 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 Assessment & Plan (03/23/2024 11:52 AM EST): Splenomegaly 03/22/2024 Obstructive sleep apnea 07/20/2021 Overview (03/22/2024): [facility] Home sleep test 07/10/2021; weight 225; BMI [...] AM EST): Aortic stenosis 09/16/2019 Overview (03/22/2024): 5 mod Mean gradient 29mmHg on cath 03/2020 [...] EST): Bacterial meningitis 07/07/2005 Overview (03/22/2024): 1966 [facility] update 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 Overview (03/22/2024): pleural plaques Allergic rhinitis 07/07/2005 Hearing loss 07/07/2005 Overview (03/22/2024): [facility] update Hypercholesterolemia 07/07/2005 Overview (03/22/2024): Last Assessment [...] with reflex to direct LDL; Future Old FL (myocardial infarction) 07/07/2005 Overview (03/22/2024): IWMI 11/27 obtuse marginal Resolved Problems Problem Noted Date Diagnosed Date Resolved Date Alcohol use disorder, severe, dependence 06/30/2019 03/22/2024 Encounters Date Type Department Care Team Description 06/10/2024 8:30 AM EST - 06/10/2024 9:30 AM EST Surgery [facility] Cardiac [facility]ing Worker [address] [place] [phone] Mandy Hernandez MD Left and right heart cath / Coronary angiography 06/10/2024 7:23 AM EST - 06/10/2024 2:07 PM EST Hospital Encounter [facility] Work[facility] [address] [place] [phone] Mandy Hernandez MD Aortic valve stenosis, etiology of cardiac valve disease unspecified; 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 - [address] [place] [phone] Mandy Hernandez MD hospital procedure (Cardiac cath) 05/10/2024 7:40 AM EST Office Visit [facility] Cardiology 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; Primary hypertension 04/26/2024 8:00 AM EST Office Visit [address] [phone] Pippa Marte PA Type 2 diabetes mellitus with stage 3 chronic kidney disease, without long-term current use of insulin, unspecified whether stage 3a or 3b CKD (CMS/HCC) (Primary Dx); Primary hypertension; Hypercholesterolemia 03/23/2024 11:15 AM EST Office Visit Adult Medicine [address] [phone] Sharri Mills MD 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 pectoris (Primary Dx); Type 2 diabetes mellitus with stage 3 chronic kidney disease, without long-term current use of insulin, unspecified whether stage 3a or 3b CKD ([facility]/HCC); Primary hypertension; Hypercholesterolemia ; Hairy cell leukemia, in remission ([facility]) from Last 3 Months Immunizations Name Administration Dates Next Due H1N1 Inj Preservative Free 05/03/2009 Influenza Quadravalent, MDCK , 0.5ml, preservative free (Flucelvax) 6mo and older 01/17/2021,05/13/2018 Influenza trivalent, 0.5mL ( Fluad) 65yo and older 03/23/2024 Influenza trivalent, 0.5mL ( Fluzone High-dose) 65yo and older 12/21/2022,03/05/2022 Influenza trivalent, 0.5mL, preservative free (Fluarix; FluLaval; Fluzone) ages 6mo and older (Afluria) 3 years and older 01/06/2020 Influenza trivalent, with pr eservative (Fluzone; Afluria) 6mo and older 03/06/2015,03/03/2014,12/30/2012,01/11,06/21/2011,05/03/2009,04/18/2008 ,04/15/2007 Pfizer (ages 12 & older) Biv alent, COVID-19 03/05/2022 Pneumococcal conjugate 13 va lent (Prevnar 13, PCV13) 2mo and older 08/31/2014 Pneumococcal polysaccharide 23 valent (Pneumovax 23) 2yo and older 01/17/2021,12/20/2010,09/27/1999 RSV, bivalent, protein subun it RSVpreF, 0.5mL, Preservative Free (Arexvy) 60yo and older 04/07/2023 TD, Adsorbed, Preservative Free 08/26/1997 Td Tetanus diptheria (Tdvax) 7yo and older 05/13/2018,08/26/1997 Tdap Tetanus diptheria acell ular pertussis (Boostrix; Adacel) 7yo and older 11/25/2007 Zoster Live 01/09/2012 Zoster recombinant (Shingrix ) 19yo and older 04/07/2023,12/21/2022 Surgical History Surgery Date Site/Laterality Comments COLONOSCOPY 08/12/2014 normal ANGIOPLASTY with stent Medical History Medical History Date Comments Microalbuminuria Allergic rhinitis CAD (coronary artery disease) Hypercholesteremia Hearing loss Asbestosis ([facility]/HCC) Hypertension Prostatism 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 (CMS/HCC) NTETA (obstructive sleep apnea) Aortic stenosis 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CMS/HCC) COPD (chronic obstructive pulmonary disease) ( S/HCC) NETTA (obstructive sleep apnea) Nocturnal hypoxemia due to emphysema (CMS/[facility]) Splenomegaly Anxiety Pulmonary nodules Alcohol use disorder, severe, dependence ([facility] C) 06/30/2019 Family History Medical History Relation Name Comments Diabetes Father stroke Cataracts Mother Relation Name Status Comments Father Mother Social History Tobacco Use Types Packs/Day Years [...] Orientation Straight 06/08/2024 11 :45 AM EST Obstetrics History Last Filed Vital Signs Vital Sign Reading Time Taken Comments Blood Pressure 125/73 06/10/2024 1:00 PM EST Pulse 86 06/10/2024 1:00 PM EST Temperature 36.1 ??C (96.9 ??F) 06/10/2024 7:52 AM ES T Respiratory Rate 17 06/10/2024 1:00 PM EST Oxygen Saturation 97% 06/10/2024 1:00 PM EST Inhaled Oxygen Concentration - - Weight 94.8 kg (209 lb) 05/10/2024 7:39 AM EST Height 167.6 cm (5' 6 ) 05/10/2024 7:39 AM EST Body Mass Index 33.73 05/10/2024 7:39 AM EST Plan of Treatment Upcoming Encounters Date Type Department Care Team (Late st Contact Info) Description 06/23/2024 11:20 AM EST Consult [facility] [address] [place] [phone] Mandy Hernandez MD [address] [place] [address] [address] [place] [address] 07/12/2024 9:00 AM EDT Office Visit [facility] Hematology Oncology [address] [place] [phone] Kt Roa MD [address] [place] [address] 08/06/2024 9:00 AM EDT Ancillary Procedure [facility] [address] [facility] [address] [place] [phone] 08/25/2024 8:00 AM EDT Office Visit Endocrinology - [address] [phone] Pippa Marte PA [address] [place] [address] 09/23/2024 8:00 AM EDT Office Visit [facility] - [address] [phone] Ne Summers PA [address] [place], [place] 01/06/2025 1:00 PM EDT Office Visit Nephrology - [address] [phone] Bharath Gonzalez MD [address] [facility] [address] [place] [phone] Health Maintenance Due Date Last Done Comments Diabetes: Annual Foot Exam 08/15/1955 Diabetes: Annual Retina Eye Exam 08/15/1955 Hepatitis C Screening 04/04/2022 Social Influencers of Health Screening 04/04/2022 Lung Cancer Screening (Low Dose CT) 01/09/2023 01/09/2022, 01/07/2021 COVID-19 Vaccine ( season) 2023 04/07/2023, 03/05/2022, 04/18/2021, Additional history exists Diabetes: Blood Sugar Control Test (HGBA1C) 09/13/2024 03/16/2024, 11/03/2023 Diabetes: Annual Urine Albumin-Creatinine Ratio (uACR) 03/16/2025 03/16/2024 Depression Screening 03/19/2025 03/19/2024 Falls Risk Assessment 03/23/2025 03/23/2024 Medicare Annual Wellness Visit 03/23/2025 03/23/2024 Diabetes: Annual GFR (Glomerular Filtration Rate) 06/10/2025 06/10/2024, 03/16/2024, 11/03/2023 Hypertension/CHF/CAD Annual BMP Blood Test 06/10/2025 06/10/2024, 03/16/2024, 11/03/2023 DTaP,Tdap,and Td Vaccines (4 - Td or Tdap) 05/13/2028 05/13/2018, 11/25/2007, 08/26/1997, Additional history exists Cholesterol Screening (Lipid Panel) 03/23/2029 03/23/2024 Pneumococcal Vaccine: 50+ Years Completed 01/17/2021, 08/31/2014, 12/20/2010, Additional history exists RSV Immunization Patients 60+ Years Old Completed 04/07/2023 Zoster Vaccines Completed 04/07/2023, 11/27, 01/09/2012 Influenza Vaccine Completed 03/23/2024, , 03/05/2022, Additional history exists HIB Vaccines Aged Out No longer eligi ble based on patient's age to complete this topic HPV Vaccines Aged Out No longer eligi ble based on patient's age to complete this topic Hepatitis A Vaccines Aged Out No long er eligible based on patient's age to complete this topic Hepatitis B Vaccines Aged Out No long er eligible based on patient's age to complete this topic IPV Vaccines Aged Out No longer eligi ble based on patient's age to complete this topic MMR Vaccines Aged Out No longer eligi ble based on patient's age to complete this topic Meningococcal ACWY Vaccine Aged Out N o longer eligible based on patient's age to complete this topic Meningococcal B Vacine Aged Out No lo nger eligible based on patient's age to complete this topic RSV Immunization Patients Under 20 months Aged Out No longer eligible based on patient's age to complete this topic Varicella Vaccines Aged Out No longer eligible based on patient's age to complete this topic Procedures Procedure Name Priority Date/Time Associated Diagnosis Comments CARDIAC PROCEDURE Routine 06/10/2024 10: 07 AM EST Aortic valve stenosis, etiology of cardiac valve disease unspecified 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 pectoris POCT ARTERIAL CARDIAC CATH Routine 06/10/2024 9:58 AM EST POCT ARTERIAL CARDIAC CATH Routine 06/10/2024 9:41 AM EST PROCEDURAL ECG Routine 06/10/2024 8:23 AM EST PROTHROMBIN TIME WITH INR STAT 06/10/2024 8:14 AM EST BASIC METABOLIC PANEL STAT 06/10/2024 8:14 AM EST COMPLETE BLOOD COUNT STAT 06/10/2024 8:14 AM EST LIPID PANEL WITH REFLEX TO DIRECT LDL Routine 03/23/2024 12:11 PM EST Hypercholesterolemi a MICROALBUMIN CREATININE URINE RATIO Routine 03/16/2024 8:40 AM EST Stage 3 chronic kidney disease (CMS/HCC) Type 2 diabetes mellitus (CMS/HCC) HEMOGLOBIN A1C Routine 03/16/2024 8:40 AM EST Stage 3 chronic kidney disease (CMS/HCC) Type 2 diabetes mellitus (CMS/HCC) CT LUNG SCREENING LOW DOSE Routine 01/09/2022 3:31 PM EDT Personal history of nicotine dependence from Last 3 Months or Most Recently Relevant to Health Maintenance Results * LEFT AND RIGHT HEART CATH [...] right breast vein access under ultrasonographic evidence. [place] catheter was used for better catheterization. Findings: [...] surgery evaluation for TAVR. Mandy Hernandez MD [facility] us Tiffany Chapman NP CV CARDIAC CATH PROCED URES Final Result * POCT Cardiac cath blood gas (06/10/2024 9:58 AM EST) Only the most recent of2 resultswithin the time period is included. pCO2 Cath POCT 50.1 mmHg 06/10/2024 10:00 AM [facility] pO2 Cath POCT 62 mmHg 06/10/2024 10:00 AM [facility] SO2 Cath POCT 90 % 06/10/2024 10:00 AM [facility] Sample Site POCT Aorta 06/10/2024 10:00 AM [facility] Device POCT [id number] 06/10/2024 10:00 AM [facility] FIO2 POCT 21.0 % 06/10/2024 10:00 AM [facility] POCT Comment ROOM AIR 06/10/2024 10:00 AM [facility] Blood Aortic structure / Unknown 06/10/2024 9:58 AM EST 06/10/2024 10:02 AM EST Mandy Hernandez MD LAB POINT OF CARE TE ST DOCKED DEVICE UNSOLICITED RESULTS Final Result Performing Organization Address [facility]/ZIP Co de Phone Number [facility] [address] [place] [address], [place] [phone] * ECG 12 lead - Procedural (No Charge) (06/10/2024 8:23 AM EST) Ventricular Rate ECG 99 BPM GEMUSE Atrial Rate 99 BPM GEMUSE P-R Interval 146 ms GEMUSE QRS Duration 88 ms GEMUSE Q-T Interval 376 ms GEMUSE QTc 482 ms GEMUSE P Wave [place] 48 degrees GEMUSE R [place] 121 degrees GEMUSE T [place] 81 degrees GEMUSE ECG Interpretation Normal sinus rhythm Prolonged QT Abnormal ECG When compared with ECG of 18-NOV-2001 06:57, Vent. rate has increased BY ??38 BPM Nonspecific T wave abnormality now evident in Anterior leads Confirmed by NEHA HUBER ([id number]) on 06/13/2024 8:45:22 AM GEMUSE 06/10/2024 8:23 AM EST 06/13/2024 8:45 AM EST Mandy Hernandez MD ECG ORDERABLES Final Result Performing Organization Address City/[facility]/ZIP Co de Phone Number GEMUSE * (ABNORMAL) Protime-INR (06/10/2024 8:14 AM EST) Protime 14.1(H) 10.6 - 13.9 sec LAB COAGULATION METHOD 06/10/2024 8:[address] [facility] INR 1.1 LAB COAGULATION METHOD 06/10/2024 8:[address] [facility] Blood Venous blood specimen / Unknown Venipuncture / Unknown 06/10/2024 8:14 AM EST 06/10/2024 8:20 AM EST us Mandy Hernandez MD LAB BLOOD ORDERABLES Final Res ult [facility] [address] [place] [address], [place] [phone] * CBC (06/10/2024 8:14 AM EST) WBC 5.7 4.8 - 10.8 K/mcL LAB HEMETOLOGY METHOD 06/10/2024 8:[address] [facility] RBC 5.00 4.50 - 5.50 M/mcL LAB HEMETOLOGY METHOD 06/10/2024 8:23 AM [facility] Hemoglobin 15.4 13.5 - 17.5 g/dL LAB HEMETOLOGY METHOD 06/10/2024 8:23 AM [facility] Hematocrit 46.8 42.0 - 54.0 % LAB HEMETOLOGY METHOD 06/10/2024 8:23 AM [facility] MCV 94.0 79.0 - 98.0 FL LAB HEMETOLOGY METHOD 06/10/2024 8:23 AM [facility] MCH 30.9 27.0 - 32.0 pcg LAB HEMETOLOGY METHOD 06/10/2024 8:23 AM [facility] MCHC 32.9 32.0 - 37.0 g/dL LAB HEMETOLOGY METHOD 06/10/2024 8:23 AM [facility] RDW 13.1 11.0 - 15.0 % LAB HEMETOLOGY METHOD 06/10/2024 8:23 AM [facility] Platelets 172 130 - 400 K/mcL LAB HEMETOLOGY METHOD 06/10/2024 8:23 AM [facility] MPV 9.4 7.0 - 11.0 FL LAB HEMETOLOGY METHOD 06/10/2024 8:[address] [facility] NRBC 0.0 <1.0 % LAB HEMETOLOGY METHOD 06/10/2024 8:[address] [facility] NRBC Absolute 0.00 <0.10 K/mcL LAB HEMETOLOGY METHOD 06/10/2024 8:[address] [facility] Blood Venous blood specimen / Unknown Venipuncture / Unknown 06/10/2024 8:14 AM EST 06/10/2024 8:21 AM EST us Mandy Hernandez MD LAB BLOOD ORDERABLES Final Res ult [facility] [address] [place] [address], [place] [phone] * (ABNORMAL) Basic metabolic panel (06/10/2024 8:14 AM EST) Sodium 141 133 - 145 mmol/L LAB CHEMISTRY METHOD 06/10/2024 8:49 AM [facility] Potassium 4.0 3.5 - 5.5 mmol/L LAB CHEMISTRY METHOD 06/10/2024 8:49 AM [facility] Chloride 110 96 - 110 mmol/L LAB CHEMISTRY METHOD 06/10/2024 8:49 AM [facility] CO2 26 21 - 32 mmol/L LAB CHEMISTRY METHOD 06/10/2024 8:49 AM [facility] Anion Gap 5 3 - 11 LAB CHEMISTRY METHOD 06/10/2024 8:49 AM [facility] Glucose 163(H) 70 - 100 mg/dL LAB CHEMISTRY METHOD 06/10/2024 8:49 AM [facility] BUN 18 5 - 25 mg/dL LAB CHEMISTRY METHOD 06/10/2024 8:49 AM [facility] Creatinine 1.24 0.70 - 1.30 mg/dL LAB CHEMISTRY METHOD 06/10/2024 8:[address] [facility] eGFR 60 >=60 mL/min/1. 73m2 LAB CHEMISTRY METHOD 06/10/2024 8:49 AM [facility] Comment:Calculation based on the??Chronic Kidney Disease Epidemiology Collaboration (CKD-EPI) equation refit??without adjustment for race. BUN/Creatinine Ratio 14.5 LAB CHEMISTRY METHOD 06/10/2024 8:49 AM [facility] Calcium 9.0 8.5 - 10.5 mg/dL LAB CHEMISTRY METHOD 06/10/2024 8:49 AM [facility] Blood Venous blood specimen / Unknown Venipuncture / Unknown 06/10/2024 8:14 AM EST 06/10/2024 8:21 AM EST Mandy Hernandez MD LAB BLOOD ORDERABLES Final Res ult [facility] [address] [place] [address], [place] [phone] * Lipid panel with reflex to direct LDL (03/23/2024 12:11 PM EST) Cholesterol 133 0 - 200 mg/dL LAB CHEMISTRY METHOD 03/23/2024 2:40 PM [facility] Triglycerides 123 0 - 150 mg/dL LAB CHEMISTRY METHOD 03/23/2024 2:40 PM [facility] HDL 52 >=40 mg/dL LAB CHEMISTRY METHOD 03/23/2024 2:40 PM [facility] LDL Calculated 56 0 - 100 mg/dL LAB CHEMISTRY METHOD 03/23/2024 2:40 PM [facility] VLDL Cholesterol Brad 24.6 mg/dL LAB CHEMISTRY METHOD 03/23/2024 2:[address] [facility] Non HDL Chol. (LDL+VLDL) 81 <145 mg/dL LAB CHEMISTRY METHOD 03/23/2024 2:[address] [facility] Chol/HDL Ratio 2.6 0.0 - 4.4 LAB CHEMISTRY METHOD 03/23/2024 2:[address] [facility] Blood Venous blood specimen / Unknown Venipuncture / Unknown 03/23/2024 12:11 PM EST 03/23/2024 12:11 PM EST Sharri Mills MD LAB BLOOD ORDERABLES Final Resul t [facility] [address] [place] [address], [place] [phone] * (ABNORMAL) Microalbumin creatinine urine ratio (03/16/2024 8:40 AM EST) Creatinine, Urine 235.0 mg/dL LAB CHEMISTRY METHOD 03/16/2024 11:01 AM [facility] Microalb, Ur 790.0(H) 0.0 - 29.0 mg/L LAB CHEMISTRY METHOD 03/16/2024 11:[address] [facility] Microalb/Crea t Ratio 336(H) <30 mg/g creat LAB CHEMISTRY METHOD 03/16/2024 11:01 AM [facility] Urine Urine specimen obtained by clean catch procedure / Unknown Non-blood Collection / Unknown 03/16/2024 8:40 AM EST 03/16/2024 8:40 AM EST Bharath Gonzalez MD LAB URINE ORDERABLES Final Res ult [facility] [address] [place] [address], [place] [phone] * Hemoglobin A1c (03/16/2024 8:40 AM EST) Hemoglobin A1C 5.2 <6.5 % LAB CHEMISTRY METHOD 03/16/2024 10:34 PM EST [facility] Mean Bld Glu Estim. 103 mg/dL LAB CHEMISTRY METHOD 03/16/2024 10:[address] [facility] Blood Venous blood specimen / Unknown Venipuncture / Unknown 03/16/2024 8:40 AM EST 03/16/2024 8:40 AM EST us Pippa BLANTON LAB BLOOD ORDERABLES Final Resul t [facility] [address] [place] [address], * CT LUNG SCREENING LOW DOSE (01/09/2022 3:31 PM EDT) Anatomical Region Laterality Modality Computed Tomogra phy 01/09/2022 9:31 AM EDT Narrative 01/09/2022 3:31 PM EDT [facility] Diagnostic Imaging Department [address] [place] [address] Patient: ??BILLIE BALDERAS ?/Age/Sex: 1945 - 76 - M Unit#: ??[id number] ? Location/Status: ??SPDICATLS/REG CLI ? Mnemonic/Ordering Site: ??CTLUNGLD/SPCT Ordering Physician: ??ISAIAS MARTIN MD CT Lung Screening Low Dose - 01/09/22 - 937 Indication: 120 pack-year smoking history (2pack/day for 60 years), current smoker Technique: Low-dose CT scan of the chest obtained as a lung cancer screening study. Multiplanar reformatted images were obtained. Scanner: Teads Dose reduction technique: ASIR (Adaptive statistical iterative reconstruction) and/or AEC (automated exposure control) Dose: total exam DLP 160.41 mGy-cm COMPARISON: CT 01/07/2021. FINDINGS: Chest wall: No focal abnormality is noted. Lower neck: The visualized portions of the thyroid gland are unremarkable. No lower cervical lymphadenopathy is identified. Lymph nodes: No axillary or mediastinal lymphadenopathy is identified. The assessment of hilar lymphadenopathy is difficult without the use of IV contrast. Mediastinum: No mediastinal mass is noted. The heart size is within normal limits. No pericardial effusion. No aneurysmal dilatation of the thoracic aorta is seen. There is atherosclerotic calcification of the coronaries and thoracic aorta. Lungs/airways: Mild emphysematous disease. ??Unchanged 3 mm noncalcified nodule in the left upper lobe (series 3 image 177). ??Similar-appearing 3 mm noncalcified nodule in the right lower lobe (image 106). ??Subpleural 3 mm nodular density in the superior segment of the right lower lobe noted (image 95). ??Persistent 4 mm nodule in the right lower lobe also noted (image 129). ??No interval development of suspicious pulmonary nodule. The trachea and central bronchi are widely patent. ??No focal confluent infiltrates are seen. No pleural effusion or pneumothorax. Upper abdomen: The visualized portions of the upper abdomen are otherwise grossly unremarkable on these noncontrast images. Osseous structures: No suspicious osseous lesions are identified. There are degenerative changes of the thoracic spine. ??Healed bilateral rib fractures. Impression: No interval development of suspicious pulmonary nodule. Lung RADS 2, recommend low-dose screening chest CT in 12 months. G0297, G9637, G9557, G9551 Dictating Physician: ??OTTO HOPPER MD Electronically Signed by: ??OTTO HOPPER MD Dic Date/Time: ??01/09/22 1511 Sign date/Time: ??01/09/22 1531 Procedure Note Otto Hopper MD - 04/17/2022 [facility] Diagnostic Imaging Department [address] [place] [id number] Patient: BILLIE BALDERAS Jessie QuilesB./Age/Sex: 1945 - 76 - M Unit#: [id number] [facility] Mn[facility]ing [facility] Ordering Physician: ISAIAS MARTIN MD CT Lung Screening Low Dose - 01/09/22937 Indication: 120 pack-year smoking history (2pack/day for 60 years),current smoker Technique: Low-dose CT scan of the chest obtained as a lung cancerscreening study. Multiplanar reformatted images were obtained. Scanner: Teads Dose reduction technique: ASIR (Adaptive statistical iterativereconstruction) and/or AEC (automated exposure control) Dose: total exam DLP 160.41 mGy-cm COMPARISON: CT 01/07/2021. FINDINGS: Chest wall: No focal abnormality is noted. Lower neck: The visualized portions of the thyroid gland are unremarkable.No lower cervical lymphadenopathy is identified. Lymph nodes: No axillary or mediastinal lymphadenopathy is identified.The assessment of hilar lymphadenopathy is difficult without the use of IVcontrast. Mediastinum: No mediastinal mass is noted. The heart size is withinnormal limits. No pericardial effusion. No aneurysmal dilatation of the thoracicaorta is seen. There is atherosclerotic calcification of the coronaries andthoracic aorta. Lungs/airways: Mild emphysematous disease. Unchanged 3 mm noncalcifiednodule in the left upper lobe (series 3 image 177). Similar-appearing 3 mm noncalcified nodule in the right lower lobe (image 106). Subpleural 3mm nodular density in the superior segment of the right lower lobe noted(image 95). Persistent 4 mm nodule in the right lower lobe also noted ([id number]). No interval development of suspicious pulmonary nodule. The trachea andcentral bronchi are widely patent. No focal confluent infiltrates are seen. Nopleural effusion or pneumothorax. Upper abdomen: The visualized portions of the upper abdomen areotherwise grossly unremarkable on these noncontrast images. Osseous structures: No suspicious osseous lesions are identified. Thereare degenerative changes of the thoracic spine. Healed bilateral ribfractures. Impression: No interval development of suspicious pulmonary nodule. Lung RADS 2, recommend low-dose screening chest CT in 12 months. G0297, G9637, G9557, G9551 Dictating Physician: OTTO HOPPER MD Electronically Signed by: OTTO HOPPER MD Dic Date/Time: 01/09/22 1511 Sign date/Time: 01/09/22 1531 Isaias Martin MD IMG CT PROCEDURES Final Result from Last 3 Months or Most Recently Relevant to Health Maintenance Insurance MEDICARE [facility] Care Teams Figure Clerk Relationship Specialty Start Date End Date Sharri Mills MD [address] [place] [address] PCP - General 11/23/01
--- OUTSIDE RECORDS SUMMARY | 2024-06-22 20:10 | XMS_ITS | Encounter Summary ---
Author Organization [facility] Address [address] [place] [address] Care Team Providers Care Pit Crane Operator Name Role Phone Sharri Mills MD Primary Care Provider [phone] Reason for Visit * Auth/Cert (Routine) Specialty Diagnoses / Procedures Referred By Contac t Referred To Contact Diagnoses Aortic valve stenosis, etiology of cardiac valve disease unspecified Coronary artery disease involving deering coronary artery of deering heart without angina pectoris Procedures MS CORONARY ANGIO/LV GRAM/LT HEART CATH Left heart cath / Coronary angiography Mandy Hernandez MD [address] [place] [address] Dr Limon [address] [place] [address] Phone: tel: fax: [facility] Cardiac [employer]visor [address] [place] [address] Phone: tel: Referral ID Status Reason Start Date Expiration Date Visits Re quested Visits Authorized [id number] 1 1 Encounter Details Date Type Department Care Team (Late st Contact Info) Description 06/10/2024 8:30 AM EST - 06/10/2024 9:30 AM EST Surgery [facility] [employer] [address] [place] [address] Mandy Hernandez MD [address] [place] [address] Dr Limon [address] [place] [address] Left and right heart cath / Coronary angiography Surgery Details Date/Time Status Location OR Service Patient Class Case Class Case Type Trauma Case? 06/10/2024 8:30 AM Posted [facility] Cardiac [employer] Supervisor Cath /EP Rm Cardiovascular (Cath/EP) Interventional Procedure F - Elective Panel 1 Procedure LRB Anes Op Region Wound Class Comments Left and right heart cath / Coronary angiography N/A Surgeon Surgeon Role Service Panel Mandy Hernandez MD Primary Cardiovascular (Cath/ EP) 1 documented in this encounter Social History Tobacco Use Types Packs/Day Years [...] Sign Reading Time Taken Comments Blood Pressure 144/86 06/10/2024 7:52 AM EST Pulse 102 06/10/2024 7:52 AM EST Temperature 36.1 ??C (96.9 ??F) 06/10/2024 7:52 AM ES T Respiratory Rate - - Oxygen Saturation 100% 06/10/2024 7:52 AM EST Inhaled Oxygen Concentration - - Weight [...] history of Alcohol use disorder, severe, dependence ([facility]) (06/30/2019), Allergic rhinitis, Anxiety, Aortic stenosis, Asbestosis ([facility]), CAD (coronary artery disease), COPD (chronic obstructive pulmonary disease) ([facility]), 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 ([facility]), 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[facility]), Hearing loss, Hypercholesteremia, Hypertension, Microalbuminuria, Nocturnal hypoxemia due to emphysema ([facility]), NETTA (obstructive sleep apnea), NETTA (obstructive sleep [...] Info) Description 06/23/2024 11:20 AM EST Consult [facility] [address] [place] [address] Dr [address] [place] [address] Mandy Hernandez MD [address] [place] [address] Dr [address] [place] [address] 07/12/2024 9:00 AM EDT Office Visit [facility] Hematology Oncology [address] [place] [address] Kt Roa MD [address] [place] [address] 08/06/2024 9:00 AM EDT Ancillary Procedure [facility] [address] [facility] [address] [place] [address] 08/25/2024 8:00 AM EDT Office Visit Endocrinology [address] [phone] Pippa Marte PA [address] [place] [address] 09/23/2024 8:00 AM EDT Office Visit [facility] - [address] [phone] Ne Summers PA [address] [place], [place] 01/06/2025 1:00 PM EDT Office Visit Nephrology - [place] [address] [place] [address] Bharath Gonzalez MD [address] [place] [address] documented as of this encounter Procedures Procedure Name Priority Date/Time Associated Diagnosis Comments CARDIAC PROCEDURE Routine 06/10/2024 10: 07 AM EST Aortic valve stenosis, etiology of cardiac valve disease unspecified Coronary artery disease involving deering coronary artery of deering heart without angina pectoris POCT ARTERIAL CARDIAC [...] right breast vein access under ultrasonographic evidence. Granite Canon-Margy catheter was used for better catheterization. Findings: [...] surgery evaluation for TAVR. Mandy Hernandez MD [facility] us Tiffany Chapman NP CV CARDIAC CATH PROCED URES Final Result * POCT Cardiac cath blood gas (06/10/2024 9:58 AM EST) pCO2 Cath POCT 50.1 mmHg 06/10/2024 10:00 AM EST [facility] pO2 Cath POCT 62 mmHg 06/10/2024 10:00 AM EST [facility] SO2 Cath POCT 90 % 06/10/2024 10:00 AM EST [facility] Sample Site POCT Aorta 06/10/2024 10:00 AM EST [facility] Device POCT [id number] 06/10/2024 10:00 AM EST [facility] FIO2 POCT 21.0 % 06/10/2024 10:00 AM EST [facility] POCT Comment ROOM AIR 06/10/2024 10:00 AM EST [facility] Blood Aortic structure / Unknown 06/10/2024 9:58 AM EST 06/10/2024 10:02 AM EST us Mandy Hernandez MD LAB POINT OF CARE TE ST DOCKED DEVICE UNSOLICITED RESULTS Final Result [facility] [address] [place] [address], [place] [phone] * POCT Cardiac cath blood gas (06/10/2024 9:41 AM EST) pCO2 Cath POCT 51.5 mmHg 06/10/2024 10:00 AM EST [facility] pO2 Cath POCT 32 mmHg 06/10/2024 10:00 AM EST [facility] SO2 Cath POCT 60 % 06/10/2024 10:00 AM EST [facility] Sample Site POCT Pulmonary Artery 06/10/2024 10:00 AM EST [facility] Device POCT [id number] 06/10/2024 10:00 AM EST [facility] FIO2 POCT 21.0 % 06/10/2024 10:00 AM EST [facility] POCT Comment ROOM AIR 06/10/2024 10:00 AM EST [facility] Blood Pulmonary artery structure / Unknown 06/10/2024 9:41 AM EST 06/10/2024 10:02 AM EST Mandy Hernandez MD LAB POINT OF CARE TE ST DOCKED DEVICE UNSOLICITED RESULTS Final Result [facility] [address] [place] [address], * ECG 12 lead - Procedural (No Charge) (06/10/2024 8:23 AM EST) Ventricular Rate ECG 99 BPM GEMUSE Atrial Rate 99 BPM GEMUSE P-R Interval 146 ms GEMUSE QRS Duration 88 ms GEMUSE Q-T Interval 376 ms GEMUSE QTc 482 ms GEMUSE P Wave [place] 48 degrees GEMUSE R [place] 121 degrees GEMUSE T [place] 81 degrees GEMUSE ECG Interpretation Normal sinus [...] LAB COAGULATION METHOD 06/10/2024 8:32 AM EST [facility] INR 1.1 LAB COAGULATION METHOD 06/10/2024 8:32 AM [facility] Blood Venous blood specimen / Unknown Venipuncture / Unknown 06/10/2024 8:14 AM EST 06/10/2024 8:20 AM EST Mandy Hernandez MD LAB BLOOD ORDERABLES Final Res ult Performing Organization Address [facility]/ZIP Co de Phone Number [facility] [address] [place] [address], [place] [phone] * (ABNORMAL) Basic metabolic panel (06/10/2024 8:14 AM EST) Pathologist [facility] Sodium 141 133 - 145 mmol/L LAB CHEMISTRY METHOD 06/10/2024 8:49 AM [facility] Potassium 4.0 3.5 - 5.5 mmol/L LAB CHEMISTRY METHOD 06/10/2024 8:49 AM [facility] Chloride 110 96 - 110 mmol/L LAB CHEMISTRY METHOD 06/10/2024 8:49 AM [facility] CO2 26 21 - 32 mmol/L LAB CHEMISTRY METHOD 06/10/2024 8:49 AM [facility] Anion Gap 5 3 - 11 LAB CHEMISTRY METHOD 06/10/2024 8:49 AM [facility] Glucose 163(H) 70 - 100 mg/dL LAB CHEMISTRY METHOD 06/10/2024 8:49 AM [facility] BUN 18 5 - 25 mg/dL LAB CHEMISTRY METHOD 06/10/2024 8:49 AM EST [facility] Creatinine 1.24 0.70 - 1.30 mg/dL LAB CHEMISTRY METHOD 06/10/2024 8:49 AM EST [facility] eGFR 60 >=60 mL/min/1. 73m2 LAB CHEMISTRY METHOD 06/10/2024 8:49 AM EST [facility] Comment:Calculation based on the??Chronic Kidney Disease Epidemiology Collaboration (CKD-EPI) equation refit??without adjustment for race. BUN/Creatinine Ratio 14.5 LAB CHEMISTRY METHOD 06/10/2024 8:49 AM [facility] Calcium 9.0 8.5 - 10.5 mg/dL LAB CHEMISTRY METHOD 06/10/2024 8:49 AM [facility] Blood Venous blood specimen / Unknown Venipuncture / Unknown 06/10/2024 8:14 AM EST 06/10/2024 8:21 AM EST us Mandy Hernandez MD LAB BLOOD ORDERABLES Final Res ult [facility] [address] [place] [address], * CBC (06/10/2024 8:14 AM EST) WBC 5.7 4.8 - 10.8 K/mcL LAB HEMETOLOGY METHOD 06/10/2024 8:23 AM [facility] RBC 5.00 4.50 - 5.50 M/mcL LAB HEMETOLOGY METHOD 06/10/2024 8:23 AM [facility] Hemoglobin 15.4 13.5 - 17.5 g/dL LAB HEMETOLOGY METHOD 06/10/2024 8:23 AM [facility] Hematocrit 46.8 42.0 - 54.0 % LAB HEMETOLOGY METHOD 06/10/2024 8:23 AM EST [facility] MCV 94.0 79.0 - 98.0 FL LAB HEMETOLOGY METHOD 06/10/2024 8:23 AM [facility] MCH 30.9 27.0 - 32.0 pcg LAB HEMETOLOGY METHOD 06/10/2024 8:23 AM [facility] MCHC 32.9 32.0 - 37.0 g/dL LAB HEMETOLOGY METHOD 06/10/2024 8:23 AM [facility] RDW 13.1 11.0 - 15.0 % LAB HEMETOLOGY METHOD 06/10/2024 8:23 AM [facility] Platelets 172 130 - 400 K/mcL LAB HEMETOLOGY METHOD 06/10/2024 8:23 AM [facility] MPV 9.4 7.0 - 11.0 FL LAB HEMETOLOGY METHOD 06/10/2024 8:23 AM EST [facility] NRBC 0.0 <1.0 % LAB HEMETOLOGY METHOD 06/10/2024 8:23 AM [facility] NRBC Absolute 0.00 <0.10 K/mcL LAB HEMETOLOGY METHOD 06/10/2024 8:23 AM [facility] Blood Venous blood specimen / Unknown Venipuncture / Unknown 06/10/2024 8:14 AM EST 06/10/2024 8:21 AM EST us Mandy Hernandez MD LAB BLOOD ORDERABLES Final Res ult [facility] [address] [place] [address], documented in this encounter Visit Diagnoses Diagnosis Aortic valve stenosis, etiology of cardiac valve disease unspecified Coronary artery disease involving deering coronary artery of deering heart without angina pectoris Hairy cell leukemia, in remission (CMS/HCC) Asbestosis ([facility]) Type 2 diabetes mellitus with stage 3 chronic kidney disease, without long-term current use of insulin, unspecified whether stage 3a or 3b CKD ([facility]) Aortic valve stenosis, etiology of cardiac valve disease unspecified Coronary artery disease involving deering coronary artery of deering heart without angina pectoris documented in this encounter Admitting Diagnoses Diagnosis Aortic stenosis Aortic valve disorders CAD (coronary artery disease) Coronary atherosclerosis of unspecified type of vessel, deering or graft documented in this encounter Administered Medications Inactive Administered Medications - up to 3 most recent administrations Medication Order MAR Action Action Date Dose Rate Site fentaNYL (PF) (SUBLIMAZE) injection As needed, Starting on Asuncion 06/10/24 at 0915, Intraprocedure Given 06/10/2024 9:44 AM EST 25 mcg Given 06/10/2024 9:15 AM EST 50 mcg heparin (UFH) injection As needed, Starting on Asuncion 06/10/24 at 0947, Intraprocedure Given 06/10/2024 9:49 AM EST 4,000 Units iopamidoL (ISOVUE-370) 370 mg iodine /mL (76 %) injection As needed, Starting on Asuncion 06/10/24 at 0954, Intraprocedure Given 06/10/2024 9:54 AM EST 35 mL lidocaine (XYLOCAINE) 1 % injection As needed, Starting on Asuncion 06/10/24 at 0954, Intraprocedure Given 06/10/2024 9:54 AM EST 2 mL midazolam (VERSED) injection As needed, Starting on Asuncion 06/10/24 at 0916, Intraprocedure Given 06/10/2024 9:16 AM EST 1 mg nitroglycerin (TRIDIL) bolus 200 mcg/mL As needed, Starting on Asuncion 06/10/24 at 0946, Intraprocedure Given 06/10/2024 9:46 AM EST 200 mcg documented in this encounter Discontinued Medications Medication Sig Discontinue Reason Start Date End Da te sulfamethoxazole-trim ethoprim (BACTRIM DS,SEPTRA DS) 800-160 mg per tablet Take 1 tablet (160 mg of trimethoprim total) by mouth 2 (two) times a day. Only take on M-W-F 08/28/2020 06/10/2024 documented as of this encounter Active [...] Hernandez MD) documented in this encounter Orders Discharge Count Last Ordered Date First Orde red Date DISCHARGE PATIENT 1 06/10/2024 documented in this encounter Additional Health Concerns Assessment Noted Time PHQ-9 Depression Total Score: 0 03/19/20 24 1:17 PM EST A fall risk assessment has been complete d for the patient 03/19/2024 1:13 PM EST documented as of this encounter Care Teams Pit Crane Operator Relationship Specialty Start Date End Date Sharri Mills MD [address] [place] [address] PCP - General 11/23/01 documented as of this encounter
--- OUTSIDE RECORDS SUMMARY | 2024-06-22 20:10 | XMS_ITS | Encounter Summary ---
Author Organization [facility] Address [address] [place] [address] Care Team Providers Care Specimen Technician Name Role Phone Sharri Mills MD Primary Care Provider [phone] Reason for Visit * Reason Onset Date Comments hospital procedure 05/18/2024 Cardiac cath Encounter Details Date Type Department Care Team (Late st Contact Info) Description 05/18/2024 Telephone [facility] Cardiology [facility] [address] [place] [address] [address] [place] [address] Mandy Hernandez MD [address] [place] [address] Dr [address] [place] [address] hospital procedure (Cardiac cath) Social History Tobacco Use Types Packs/Day Years Used Date Smoking Tobacco: Some Days Cigarettes 0.5 1.2 Started: 2023 Smokeless Tobacco: Never Alcohol Use Standard Drinks/Week Comments Yes 12 [...] AM EST documented as of this encounter Progress Notes * Lucy Blanco - 05/18/2024 3:30 PM EST Patient is scheduled for cath procedure at [facility] on 06/10/[address] Hernandez. Arrival time is 7:30 am and procedure time is 8:30. I gave patient pre-cath instructions and mailed dora. I also mailed lab order for cath procedure. * Awa Powell - 05/18/2024 2:18 PM EST No auth required for cpt code [id number]. Ok to book documented in this encounter Plan of Treatment Upcoming Encounters Date Type Department Care Team (Late st Contact Info) Description 06/23/2024 11:20 AM EST Consult [facility] Cardiology [facility] [address] [place] [address] Dr [address] [place] [address] Mandy Hernandez MD [address] [place] [address] Dr [address] [place] [address] 07/12/2024 9:00 AM EDT Office Visit [facility] Hematology Oncology [address] [place] [phone] Kt Roa MD [address] [place] [address] 08/06/2024 9:00 AM EDT Ancillary Procedure [facility] [address] [facility] [address] [place] [address] 08/25/2024 8:00 AM EDT Office Visit Endocrinology [address] [phone] Pippa Marte PA [address] [place] [address] 09/23/2024 8:00 AM EDT Office Visit [facility] - [address] [phone] Ne Summers PA [address] [place], [place] 01/06/2025 1:00 PM EDT Office Visit Nephrology [facility] [address] [place] [address] Bharath Gonzalez MD [address] [address] Scheduled Orders Name Type Priority Associated Diagnoses Orde r Schedule Prothrombin time with INR Lab Routine CAD (coronary artery disease) 1 Occurrences starting 05/18/2024 until 05/18/2025 documented as of this encounter Visit Diagnoses Diagnosis CAD (coronary artery disease)- Primary Coronary atherosclerosis of unspecified type of vessel, [place] or graft documented in this encounter Additional Health Concerns Assessment Noted Time PHQ-9 Depression Total Score: 0 03/19/20 24 1:17 PM EST A fall risk assessment has been complete d for the patient 03/19/2024 1:13 PM EST documented as of this encounter Care Teams Specimen Technician Relationship Specialty Start Date End Date Sharri Mills MD [address] [place] [address] PCP - General 11/23/01 documented as of this encounter
--- NOTE | 2024-06-22 21:53 | PC.NURSE ---
16F [place] inserted d in pt 1000ml output immediately, pt tolerated procedure fair due to it being pt's first time.
[2024-06-22 22:06] LABS: Appearance Urine Clear; Color Urine Yellow; Glucose Urine UA Negative (Negative); Leukocyte Esterase Urine Negative (Negative); Nitrite Urine Negative (Negative); PH 5.5 (5.0-9.0); Specific Gravity - Urine 1.015 (1.005-1.025); UMIC TRIGGER UACC YES; Urine Blood Small (1+) (Negative); Urine Ketones Negative (Negative); Urine Protein 300 (3+) mg/dL (Neg-Trace)
[2024-06-22 22:10] LABS: Bacteria Urine None Seen (None Seen); Hyaline Casts Urine 0-2 /LPF (0-2); Squamous Epithelial Cell Urine 0-2 /HPF (0-2); WBC Urine 0-5 /HPF (0-5)
[2024-06-22 22:48] VITALS: BP 178/88; PULSE 76; RESP 19; TEMP 36.6; O2SAT 98
[2024-06-22 23:29] VITALS: BP 178/88; PULSE 76; RESP 19; TEMP 36.6; O2SAT 98
== END 2024-06-22 23:29 | disposition home or self-care (01) ==
PROVIDERS: Registered Nurse Emergency; Emergency Provider Emergency Medicine; PCP Internal Medicine
DX: R33.9 Retention of urine, unspecified (principal); Z79.899 Other long term (current) drug therapy; Z51.81 Encounter for therapeutic drug level monitoring
CPT/HCPCS: 36415; 51702; 51798; 80053; 81001; 85025; 85610; 99284

== ENCOUNTER 2024-07-26 10:02 | Outpatient (AMB) | payer MEDICARE, OTHER, SELFPAY ==
--- NOTE | 2024-07-26 10:27 | A.OFFVIS_ITS ---
Intake Visit Reasons: urinary retention/ Voiding trial Intake Note: New Patient presents for initial visit for urinary retention and voiding trial Urology Medications: none Blood Thinner: aspirin PVR: 0ml's Grid Inspector Required: No Accompanied by: Spouse Allergies No Known Allergies Allergy (Verified 07/26/24 11:13) Medication List - Last Reconciled 07/26/24 by JUANA De La Cruz- albuterol sulfate inhalation aspirin 81 mg PO DAILY dulaglutide (Trulicity) mg subcut insulin glargine (Basaglar KwikPen U-100 Insulin) units subcut isosorbide mononitrate ER mg PO lisinopril 20 mg PO DAILY metformin 500 mg PO BID metoprolol tartrate 50 mg PO BID nitroglycerin 0.4 mg sublingual Q5M PRN omeprazole 20 mg PO DAILY pravastatin 40 mg PO DAILY tamsulosin mg PO HPI Comments Details: Cristobal Martinez is a pleasant 78-year-old male patient of Dr. Mills who was accompanied by his significant other Darlene at today's office visit. He has a past medical history of hearing loss, asbestos, hypercholesteremia, [place], allergic rhinitis, hypertension, type 2 diabetes, COPD, emphysema, pulmonary nodules, hairy cell leukemia, aortic stenosis, coronary artery disease, obstructive sleep apnea, and obesity. He presents to the office today as a new patient for urinary retention. In discussion with the patient today he reports having seeked emergency room care approximately 1 month ago for the inability to urinate at which time an indwelling Ackerman catheter was placed and recommendations were made for urology referral for further assessment evaluation. When asked he does report a previous history of following up with a urologist many years ago however does not recall providers name. When asked he does report a longstanding history of urinary issues. He reports noting weak urinary stream and sense of urinary urgency with feeling of incomplete bladder emptying. He reports the symptoms have been progressively worsening. He otherwise denies incontinence, nocturia, hematuria, dysuria, foul smelling urine, flank pain, fever, and or chills. In office voiding trial was performed patient was able to independently void. We discussed at length potential causes of urinary retention. He reports to be following up with cardiology at [place] for a potential near future valve replacement however would like patient to be stable urologically prior to potential surgical procedure. Flomax on patient's med reconciliation however patient does not believe he is taking this medication. We discussed obtaining PSA for further assessment evaluation as well as retroperitoneal ultrasound. He otherwise offers no other issues or concerns at this time. [facility] Medical History Meningitis Asbestosis Hearing loss Hypercholesteremia Old myocardial infarction Allergic rhinitis Hypertension Prostatism 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 Generalized anxiety disorder COPD (chronic obstructive pulmonary disease) with emphysema Alcohol use disorder Pulmonary nodules Hairy cell leukemia Splenomegaly Aortic stenosis CAD (coronary artery disease) Nocturnal hypoxemia due to emphysema Obstructive sleep apnea (adult) (pediatric) Class 2 severe obesity with serious comorbidity and body mass index (BMI) of 35.0 to 35.9 in adult Surgical History History of coronary angioplasty with insertion of stent Review of Systems Eyes Reports no additional complaints ENT Reports as per HPI Card Reports as per HPI Resp Reports as per HPI GI Reports no additional complaints Reports as per HPI Musc Reports as per HPI Neuro Reports no additional complaints Psych Reports no additional complaints Endo Reports as per HPI Physical Exam Const General: cooperative, healthy appearing, comfortable, no acute distress, well developed, alert and awake Nutritional Appearance: overweight Orientation/consciousness: patient oriented x3 Limitations: no limitations HEENT Head: Yes normal to inspection, Yes normocephalic and Yes atraumatic Ears: hearing grossly normal bilaterally Eyes General: appearance normal, both eyes and all related structures Neck Neck: Yes normal visual inspection and Yes trachea midline Chest Chest palpation & inspection: normal inspection of the chest Resp Effort & Inspection: normal respiratory effort and able to speak in complete sentences Cardio Rate: regular rate GI Inspection: Yes normal to inspection General: Yes no CVA tenderness Back/Spine/Pelvis Back: no CVA tenderness Skin General skin exam: no rashes or lesions noted Neuro General: patient oriented x3 Extrem General: Yes normal to inspection Psych Appearance: grossly normal and well kempt Mental Status: mental status grossly normal Speech and movement: Normal speech and movement present and Clear speech present Affect: normal affect Attitude: cooperative Thought process: Normal thought process present Thought content: Normal thought content present Insight: Fair insight present (Psych) Judgement: Fair judgement present (Psych) Office Procedures Bladder/Catheter Procedure Details: Patient presents to office for voiding trial s/p acute urinary retention episode. 120mls sterile water instilled through catheter, patient tolerated well. Removed 16 fr ackerman catheter, patient tolerated removal well. Patient able to void approximately 120mls. MA to bladder scan. Soraida MORSE in room for patient visit. 59558-Haulqhcjsw of Bladder Procedure code (CPT) selection complete Post Void Residual Post Residual Void Post Void Residual (PVR): 0 63604-Wfgr Void Residual by ultrasound Assessment & Plan Assessment & Plan (1) Urinary retention: Code(s): R33.9 - Retention of urine, unspecified Category: Medical Plan In office voiding trial was performed patient was able to independently void; PVR 0 mL Start Flomax as discussed and prescribed. We discussed potential causes of urinary retention as well as further treatment options and risks and benefits of these treatment options. We discussed importance of managing diabetes for improvement in lower urinary tract symptoms as well as overall health and well-being. Will obtain retroperitoneal ultrasound for further assessment evaluation. Will obtain PSA for further assessment evaluation. We discussed potential near future in office cystoscopy and or urodynamics for further assessment evaluation. Follow-up in 1-3 months with imaging, PSA, and PVR; or sooner with any issues, concerns, and or questions. Orders: Orders AMB Post Void Residual by ultrasound Today R33.8 - Other retention of urine Prostate Specific Antigen Today R33.9 - Retention of urine, unspecified AMB Bladder/Catheter Procedure Today R33.8 - Other retention of urine US retroperitoneal comp Today R33.9 - Retention of urine, unspecified Medications: New tamsulosin 0.4 mg PO DAILY 90 days 90 caps 1RF Patient Instructions: The patient had an opportunity to ask questions regarding the treatment plan. All questions were answered. Physical exam, labs, and imaging were discussed and reviewed in detail. As well as risks, benefits, and discussion of treatment choices. No major barriers to understanding were identified. The patient expressed understanding and agreement with the above treatment plan. The patient was made aware they should contact our office by phone for worsening of their current condition, the appearance of new symptoms, or with any questions or concerns. Compliance is encouraged with any medications and follow up testing that is ordered. It is a privilege to be allowed the opportunity to participate in? your urological care.? Again, if you have any questions or concerns If you have any questions or concerns please do not hesitate to contact me. The office is [phone]. This note is constructed using voice recognition software. While every effort has been made to ensure accuracy wire sawyer errors may have been included. Yours sincerely, JUANA De La Cruz-ELROY Coding Level of Care Code New Pt Level 4 (70384) Diagnoses Urinary retention R33.9 CPT Codes Bladder/Catheter Procedure - CPT: 49073-Goksrfuxrf of Bladder ([id number]) Post Residual Void - PVR CPT Code: 77245-Kmra Void Residual by ultrasound ([id number])
--- OUTSIDE RECORDS SUMMARY | 2024-07-26 11:10 | XMS_ITS ---
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 Past Plans No past plan information found. Radiation Treatments * No radiation treatments are documented for this patient in [facility]. Treatments may have been administered in another system. Lifetime Dose Tracking * Chemical Lifetime Dose Automatic Entry Manual Entr y Radiation 536 mGy 0 mGy 536 mGy Fluoro Time 4.7 minutes 0 minutes 4.7 minutes Resolved Problems Problem Noted Date Diagnosed Date Resolved Date Alcohol use disorder, severe, dependence 06/30/2019 03/22/2024
--- OUTSIDE RECORDS SUMMARY | 2024-07-26 11:10 | XMS_ITS | Clinical Summary ---
Author Organization [facility] Address [address] [place] [address] Care Team Providers Care Name Role Phone Sharri Mills MD Primary Care Provider [phone] Allergies No known active allergies Medications Medication [...] (two) times a day. Only take on - 28 tablet 2 08/28/2020 Active Active Problems [...] age to complete this topic Care Teams Relationship Specialty Start Date End Date Sharri Mills MD PCP - General Internal Medicine 07/09/19
--- OUTSIDE RECORDS SUMMARY | 2024-07-26 11:10 | XMS_ITS | Clinical Summary ---
Author Organization [facility] Address [address] [place] [address] Phone Care Team Providers Care Appliance Worker Name Role Phone Sharri Mills MD Primary Care Provider [phone] Allergies No known active allergies Medications aspirin 325 mg tablet Take 1 tablet (325 mg total) by mouth daily. Active albuterol HFA (PROAIR HFA ; PROVENTIL HFA ; VENTOLIN HFA) 90 mcg/actuation inhaler Inhale 2 puffs by mouth 4 (four) times a day. 2 Active nitroglycerin (NITROSTAT) 0.[address] 1 tablet (0.4 mg total) under the tongue every 5 (five) minutes if needed. 2 Active Trelegy Ellipta 100-62.5-25 mcg inhaler Inhale 1 puff (100 mcg total) by mouth 1 (one) time each day. 4 Active isosorbide mononitrate (IMDUR) 30 mg 24 hr tablet Take 3 tablets (90 mg total) by mouth 1 (one) time each day. 270 each 1 4 Active lisinopriL (PRINIVIL,ZESTRI L) 20 mg tablet Take 1 tablet (20 mg total) by mouth 1 (one) time each day. 90 each 1 4 Active metFORMIN (GLUCOPHAGE) 500 mg tablet Take 1 tablet (500 mg total) by mouth 2 (two) times a day with meals. 180 each 1 4 Active metoprolol succinate (TOPROL-XL) 50 mg 24 hr tablet Take 1 tablet (50 mg total) by mouth 1 (one) time each day. Do not crush or chew. 90 each 1 4 Active omeprazole (PriLOSEC) [address] capsule Take 1 capsule (20 mg total) by mouth 1 (one) time each day. Do not crush or chew. 90 each 1 4 Active pravastatin (PRAVACHOL) 40 mg tablet Take 1 tablet (40 mg total) by mouth 1 (one) time each day. 90 each 1 4 Active tamsulosin (FLOMAX) 0.4 mg 24 hr capsule Take 1 capsule (0.4 mg total) by mouth 1 (one) time each day. Capsules should be taken 30 minutes following the same meal each day. 90 each 1 4 Active Trulicity 3 mg/0.5 mL pen injector injectionIndicat ions:Type 2 diabetes mellitus with stage 3 chronic kidney disease, without long-term current use of insulin, unspecified whether stage 3a or 3b CKD (CMS/HCC) Inject 0.5 mL (3 mg total) under the skin 1 (one) time per week. 6 mL 1 4 Active insulin glargine (Lantus Solostar U-100 Insulin) 100 unit/mL (3 mL) injection pen Take 34-36 units at bedtime 30 mL 2 4 Active sulfamethoxazole -trimethoprim (BACTRIM DS,SEPTRA DS) 800-160 mg per tablet Take 1 tablet by mouth 2 (two) times a day. 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 (03/23/2024 11:52 AM EST): Splenomegaly 03/22/2024 Obstructive sleep apnea 07/20/2021 Overview (03/22/2024): [facility] Home sleep test 07/10/2021; weight [...] EST): Bacterial meningitis 07/07/2005 Overview (03/22/2024): 1966 O update 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 Overview (03/22/2024): pleural plaques Allergic rhinitis 07/07/2005 Hearing loss 07/07/2005 Overview (03/22/2024): O update Hypercholesterolemia 07/07/2005 Overview (03/22/2024): Last Assessment [...] with reflex to direct LDL; Future Old [place] (myocardial infarction) 07/07/2005 Overview (03/22/2024): IWMI 11/27 obtuse marginal Resolved Problems Problem Noted Date Diagnosed Date Resolved Date Alcohol use disorder, severe, dependence 06/30/2019 03/22/2024 Encounters Date Type Department Care Team Description 07/12/2024 9:00 AM EDT Office Visit [facility] Hematology Oncology [address] [place] [address] Kt Roa MD Hairy cell leukemia, in remission (CMS/HCC) (Primary Dx) 06/23/2024 11:20 AM EST Consult [facility] [address] [place] [address] Mandy Reid MD Nonrheumatic aortic valve stenosis (Primary Dx); Coronary artery disease, unspecified vessel or lesion type, unspecified whether angina present, unspecified whether [place] or transplanted heart 06/23/2024 Telephone [facility] [address] [place] [address] Mandy Reid MD urology (Urology ) 06/10/2024 8:30 AM EST - 06/10/2024 9:30 AM EST Surgery [facility] Cardiac Germination Testing Manager [address] [place] [address] Mandy Reid MD Left and right heart cath / Coronary angiography 06/10/2024 7:23 AM EST - 06/10/2024 2:07 PM EST Hospital Encounter [facility] Cardiac Germination Testing Manager [address] [place] [address] Mandy Reid MD Aortic valve stenosis, etiology of cardiac valve disease unspecified; Coronary artery disease involving [place] coronary artery of [place] heart without angina pectoris; Hairy cell leukemia, in remission ([facility]/HCC); Asbestosis ([facility]); Type 2 diabetes mellitus with stage 3 chronic kidney disease, without long-term current use of insulin, unspecified whether stage 3a or 3b CKD ([facility]) Discharge Disposition: Home or Self Care 05/18/2024 Telephone [facility] [address] [place] [address] Mandy Reid MD hospital procedure (Cardiac cath) 05/10/2024 7:40 AM EST Office Visit [facility] - [address] [place] [address] Tiffany Chapman NP Aortic valve stenosis, etiology of cardiac valve disease unspecified (Primary Dx); Coronary artery disease involving [place] coronary artery of [place] heart without angina pectoris; Primary hypertension from Last 3 Months Immunizations Name Administration [...] (coronary artery disease) Hypercholesteremia Hearing loss Asbestosis (CMS/[facility]) Hypertension Prostatism 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 (CMS/[facility]) NETTA (obstructive sleep apnea) Aortic stenosis Hairy cell leukemia COPD (chronic obstructive pulmonary disease) (CM S/HCC) NETTA (obstructive sleep apnea) Nocturnal hypoxemia due to emphysema (CMS/[facility]) Splenomegaly Anxiety Pulmonary nodules Alcohol use disorder, severe, dependence ([facility]/HC C) 06/30/2019 Family History Medical History Relation Name Comments Diabetes Father stroke Cataracts Mother Relation Name Status Comments Father Mother Social History Tobacco Use Types Packs/Day Years Used Date Smoking Tobacco: Every Day Cigarettes 1 64.2 Started: 1960 Smokeless Tobacco: Never Tobacco Cessation:Ready [...] Sign Reading Time Taken Comments Blood Pressure 133/64 07/12/2024 9:04 AM EDT Pulse 82 07/12/2024 9:04 AM EDT Temperature 36.5 ??C (97.7 ??F) 07/12/2024 9:04 AM ED T Respiratory Rate 17 06/10/2024 1:00 PM EST Oxygen Saturation 98% 07/12/2024 9:04 AM EDT Inhaled Oxygen Concentration - - Weight 92.5 kg (204 lb) 07/12/2024 9:04 AM EDT Height 167.6 cm (5' 6 ) 06/23/2024 11:49 AM EST Body Mass Index 32.93 06/23/2024 11:49 AM EST Plan of Treatment Upcoming Encounters Date Type Department Care Team (Late st Contact Info) Description 08/06/2024 9:00 AM EDT Ancillary Procedure [facility] [address] [address] 08/25/2024 8:00 AM EDT Office Visit Endocrinology - [address] [phone] Pippa Marte PA [address] [place], [place] 09/23/2024 8:00 AM EDT [facility] - [address] [phone] Ne Summers PA [address] [place], [place] 01/06/2025 1:00 PM EDT Office Visit Nephrology - [address] [phone] Bharath Gonzalez MD [address] [phone] 08/01/2025 8:30 AM EDT Office Visit [facility] Hematology Oncology [address] [place] [phone] Kt Roa MD [address] [place] [address] Health Maintenance Due Date Last Done Comments [...] Procedure Name Priority Date/Time Associated Diagnosis Comments ECG 12-LEAD Routine 06/23/2024 12:00 PM EST Coronary artery disease, unspecified vessel or lesion type, unspecified whether angina present, unspecified whether [place] or transplanted heart LEFT AND RIGHT HEART CATH / CORONARY ANGIOGRAPHY Routine 06/10/2024 10:07 AM EST Aortic valve stenosis, etiology of cardiac valve disease unspecified Coronary artery disease involving [place] coronary artery of [place] heart without angina pectoris POCT ARTERIAL CARDIAC [...] DIRECT LDL Routine 03/23/2024 12:11 PM EST Hypercholesterolemia MICROALBUMIN CREATININE URINE RATIO Routine 03/16/2024 8:40 [...] Recently Relevant to Health Maintenance Results * ECG 12 lead (06/23/2024 12:00 PM EST) Ventricular Rate ECG 81 BPM GEMUSE Atrial Rate 81 BPM GEMUSE P-R Interval 154 ms GEMUSE QRS Duration 98 ms GEMUSE Q-T Interval 418 ms GEMUSE QTc 485 ms GEMUSE P Wave [place] 28 degrees GEMUSE R [place] 88 degrees GEMUSE T [place] 75 degrees GEMUSE ECG Interpretation Normal sinus rhythm Inferior infarct , age undetermined Abnormal ECG When compared with ECG of 10-JUN-2024 08:23, Inferior infarct is now Present Nonspecific T wave abnormality now evident in Lateral leads Confirmed by MANDY ERID ([id number]) on 06/23/2024 1:01:11 PM GEMUSE 06/23/2024 12:0 0 PM EST 06/23/2024 1:01 PM EST us Mandy Reid MD ECG ORDERABLES Final Result GEMUSE * LEFT AND RIGHT HEART CATH / [...] right breast vein access under ultrasonographic evidence. [place] catheter was used for better catheterization. Findings: [...] and cardiothoracic surgery evaluation for TAVR. Mandy Reid MD [facility]. us Tiffany Tg [employer]IST CV CARDIAC CATH PROCED URES Final Result * POCT Cardiac cath blood gas (06/10/2024 9:58 AM EST) Only the most recent of2 resultswithin the time period is included. pCO2 Cath POCT 50.1 mmHg 06/10/2024 10:00 AM EST [facility] pO2 Cath POCT 62 mmHg 06/10/2024 10:00 AM EST [facility] SO2 Cath POCT 90 % 06/10/2024 10:00 AM EST [facility] Sample Site POCT Aorta 06/10/2024 10:00 AM EST [facility] Device POCT [id number] 06/10/2024 10:00 AM EST [facility] FIO2 POCT 21.0 % 06/10/2024 10:00 AM EST [facility] POCT Comment ROOM AIR 06/10/2024 10:00 AM EST [facility] Blood Aortic structure / Unknown 06/10/2024 9:58 AM EST 06/10/2024 10:02 AM EST Mandy Reid MD LAB POINT OF CARE TE ST DOCKED DEVICE UNSOLICITED RESULTS Final Result [facility] [address] [place] [address], * ECG 12 lead - Procedural (No Charge) (06/10/2024 8:23 AM EST) Ventricular Rate ECG 99 BPM GEMUSE Atrial Rate 99 BPM GEMUSE P-R Interval 146 ms GEMUSE QRS Duration 88 ms GEMUSE Q-T Interval 376 ms GEMUSE QTc 482 ms GEMUSE P Wave [place] 48 degrees GEMUSE R [place] 121 degrees GEMUSE T [place] 81 degrees GEMUSE ECG Interpretation Normal sinus rhythm Prolonged QT Abnormal ECG When compared with ECG of 18-NOV-2001 06:57, Vent. rate has increased BY ??38 BPM Nonspecific T wave abnormality now evident in Anterior leads Confirmed by NEHA HUBER ([id number]) on 06/13/2024 8:45:22 AM GEMUSE 06/10/2024 8:23 AM EST 06/13/2024 8:45 AM EST Mandy Reid MD ECG ORDERABLES Final Result GEMUSE * (ABNORMAL) Protime-INR (06/10/2024 8:14 AM EST) Protime 14.1(H) 10.6 - 13.9 sec LAB COAGULATION METHOD 06/10/2024 8:32 AM EST [facility] INR 1.1 LAB COAGULATION METHOD 06/10/2024 8:32 AM EST [facility] Blood Venous blood specimen / Unknown Venipuncture / Unknown 06/10/2024 8:14 AM EST 06/10/2024 8:20 AM EST Mandy Reid MD LAB BLOOD ORDERABLES Final Res ult Performing Organization Address [facility]/ZIP Co de Phone Number [facility] [address] [place] [address], [place] [phone] * CBC (06/10/2024 8:14 AM EST) WBC 5.7 4.8 - 10.8 K/mcL LAB HEMETOLOGY METHOD 06/10/2024 8:23 AM EST [facility] RBC 5.00 4.50 - 5.50 M/mcL LAB HEMETOLOGY METHOD 06/10/2024 8:23 AM EST [facility] Hemoglobin 15.4 13.5 - 17.5 g/dL LAB HEMETOLOGY METHOD 06/10/2024 8:23 AM EST [facility] Hematocrit 46.8 42.0 - 54.0 % LAB HEMETOLOGY METHOD 06/10/2024 8:23 AM EST [facility] MCV 94.0 79.0 - 98.0 FL LAB HEMETOLOGY METHOD 06/10/2024 8:23 AM EST [facility] MCH 30.9 27.0 - 32.0 pcg LAB HEMETOLOGY METHOD 06/10/2024 8:23 AM EST [facility] MCHC 32.9 32.0 - 37.0 g/dL LAB HEMETOLOGY METHOD 06/10/2024 8:23 AM EST [facility] RDW 13.1 11.0 - 15.0 % LAB HEMETOLOGY METHOD 06/10/2024 8:23 AM [facility] Platelets 172 130 - 400 K/mcL LAB HEMETOLOGY METHOD 06/10/2024 8:23 AM EST [facility] MPV 9.4 7.0 - 11.0 FL LAB HEMETOLOGY METHOD 06/10/2024 8:23 AM EST [facility] NRBC 0.0 <1.0 % LAB HEMETOLOGY METHOD 06/10/2024 8:23 AM [facility] NRBC Absolute 0.00 <0.10 K/mcL LAB HEMETOLOGY METHOD 06/10/2024 8:23 AM [facility] Blood Venous blood specimen / Unknown Venipuncture / Unknown 06/10/2024 8:14 AM EST 06/10/2024 8:21 AM EST us Mandy Reid MD LAB BLOOD ORDERABLES Final Res ult [facility] [address] [place] [address], * (ABNORMAL) Basic metabolic panel (06/10/2024 8:14 AM EST) Pathologist [facility] Sodium 141 133 - 145 mmol/L LAB CHEMISTRY METHOD 06/10/2024 8:49 AM [facility] Potassium 4.0 3.5 - 5.5 mmol/L LAB CHEMISTRY METHOD 06/10/2024 8:49 AM [facility] Chloride 110 96 - 110 mmol/L LAB CHEMISTRY METHOD 06/10/2024 8:49 AM [facility] CO2 26 21 - 32 mmol/L LAB CHEMISTRY METHOD 06/10/2024 8:49 AM [facility] Anion Gap 5 3 - 11 LAB CHEMISTRY METHOD 06/10/2024 8:49 AM [facility] Glucose 163(H) 70 - 100 mg/dL LAB CHEMISTRY METHOD 06/10/2024 8:49 AM [facility] BUN 18 5 - 25 mg/dL LAB CHEMISTRY METHOD 06/10/2024 8:49 AM [facility] Creatinine 1.24 0.70 - 1.30 mg/dL LAB CHEMISTRY METHOD 06/10/2024 8:49 AM [facility] eGFR 60 >=60 mL/min/1. 73m2 LAB CHEMISTRY METHOD 06/10/2024 8:49 AM [facility] Comment:Calculation based on the??Chronic Kidney Disease Epidemiology Collaboration (CKD-EPI) equation refit??without adjustment for race. BUN/Creatinine Ratio 14.5 LAB CHEMISTRY METHOD 06/10/2024 8:49 AM [facility] Calcium 9.0 8.5 - 10.5 mg/dL LAB CHEMISTRY METHOD 06/10/2024 8:49 AM [facility] Blood Venous blood specimen / Unknown Venipuncture / Unknown 06/10/2024 8:14 AM EST 06/10/2024 8:21 AM EST us Mandy Reid MD LAB BLOOD ORDERABLES Final Res ult [facility] [address] [place] [address], [place] [phone] * Lipid panel with reflex to direct LDL (03/23/2024 12:11 PM EST) Cholesterol 133 0 - 200 mg/dL LAB CHEMISTRY METHOD 03/23/2024 2:40 PM EST [facility] Triglycerides 123 0 - 150 mg/dL LAB CHEMISTRY METHOD 03/23/2024 2:40 PM EST [facility] HDL 52 >=40 mg/dL LAB CHEMISTRY METHOD 03/23/2024 2:40 PM EST [facility] LDL Calculated 56 0 - 100 mg/dL LAB CHEMISTRY METHOD 03/23/2024 2:40 PM [facility] VLDL Cholesterol Brad 24.6 mg/dL LAB CHEMISTRY METHOD 03/23/2024 2:40 PM EST [facility] Non HDL Chol. (LDL+VLDL) 81 <145 mg/dL LAB CHEMISTRY METHOD 03/23/2024 2:40 PM EST [facility] Chol/HDL Ratio 2.6 0.0 - 4.4 LAB CHEMISTRY METHOD 03/23/2024 2:40 PM [facility] Blood Venous blood specimen / Unknown Venipuncture / Unknown 03/23/2024 12:11 PM EST 03/23/2024 12:11 PM EST us Sharri Mills MD LAB BLOOD ORDERABLES Final Resul t [facility] [address] [place] [address], [place] [phone] * (ABNORMAL) Microalbumin creatinine urine ratio (03/16/2024 8:40 AM EST) Creatinine, Urine 235.0 mg/dL LAB CHEMISTRY METHOD 03/16/2024 11:01 AM EST [facility] Microalb, Ur 790.0(H) 0.0 - 29.0 mg/L LAB CHEMISTRY METHOD 03/16/2024 11:01 AM EST [facility] Microalb/Crea t Ratio 336(H) <30 mg/g creat LAB CHEMISTRY METHOD 03/16/2024 11:01 AM [facility] Urine Urine specimen obtained by clean catch procedure / Unknown Non-blood Collection / Unknown 03/16/2024 8:40 AM EST 03/16/2024 8:40 AM EST Bharath Gonzalez MD LAB URINE ORDERABLES Final Res ult Performing Organization Address City/[facility]/ZIP Co de Phone Number [facility] [address] [place] [address], [place] [phone] * Hemoglobin A1c (03/16/2024 8:40 AM EST) Hemoglobin A1C 5.2 <6.5 % LAB CHEMISTRY METHOD 03/16/2024 10:34 PM [facility] Mean Bld Glu Estim. 103 mg/dL LAB CHEMISTRY METHOD 03/16/2024 10:34 PM [facility] Blood Venous blood specimen / Unknown Venipuncture / Unknown 03/16/2024 8:40 AM EST 03/16/2024 8:40 AM EST Pippa BLANTON LAB BLOOD ORDERABLES Final Resul t Performing Organization Address City/[facility]/ZIP Co de Phone Number [facility] [address] [place] [address], [place] [phone] * CT LUNG SCREENING LOW DOSE (01/09/2022 3:31 PM EDT) Anatomical Region Laterality Modality Computed Tomogra phy 01/09/2022 9:31 AM EDT Narrative 01/09/2022 3:[address] [facility] Diagnostic Imaging Department [address] [place] [address] Patient: ??BILLIE BALDERAS ?/Age/Sex: 1945 - 76 - M Unit#: ??[id number] ? Location/Status: ??SPDICATLS/REG CLI ? Mnemonic/Ordering Site: ??CTLUNGLD/SPCT Ordering Physician: ??ISAIAS MARTIN MD CT Lung Screening Low Dose - 01/09/22937 Indication: 120 pack-year smoking history (2pack/day for 60 years), current smoker Technique: Low-dose CT scan of the chest obtained as a lung cancer screening study. Multiplanar reformatted images were obtained. Scanner: [employer] Dose reduction technique: ASIR (Adaptive statistical iterative [...] Procedure Note Otto Hopper MD - 04/17/[address] [facility] Diagnostic Imaging Department [address] [place] [address] Patient: DORYSTYEANTIONETTEMATYBILLIEO.B./Age/Sex: 1945 - 76 - M Unit#: [id number] Location/Status: SPDICATLS/REG CLI Mnemonic/Ordering Site: [facility] Ordering Physician: ISAIAS MARTIN MD CT Lung Screening Low Dose - 01/09/22 - 937 Indication: 120 pack-year smoking history (2pack/day for 60 years),current smoker Technique: Low-dose CT scan of the chest obtained as a lung cancerscreening study. Multiplanar reformatted images were obtained. Scanner: [employer] Dose reduction technique: ASIR (Adaptive statistical iterativereconstruction) [...] in the right lower lobe also noted (). No interval development of suspicious pulmonary nodule. [...] Date/Time: 01/09/22 1511 Sign date/Time: 01/09/22 1531 us Isaias Martin MD IMG CT PROCEDURES Final Result from Last 3 Months or Most Recently Relevant to Health Maintenance Insurance MEDICARE [facility] Care Teams Appliance Worker Relationship Specialty Start Date End Date Sharri Mills MD [address] [place] [address] PCP - General 11/23/01
== END 2024-07-26 11:19 | disposition home or self-care (01) ==
LOC: HO.HUSH 10:02
PROVIDERS: PCP Internal Medicine; Visit Provider Nurse Practitioner Family
DX: R33.9 Retention of urine, unspecified (principal)
CPT/HCPCS: 51700; 99204

== ENCOUNTER → 2024-07-26 10:02 | Outpatient (BNVA) | payer MEDICARE, OTHER, SELFPAY | PROVIDERS: PCP Internal Medicine; Visit Provider Nurse Practitioner Family | DX: R33.9 Retention of urine, unspecified (principal) | CPT/HCPCS: 51700; 51798; 99202 ==

== ENCOUNTER 2024-07-29 12:51 | Outpatient (AMB) | payer MEDICARE, OTHER, SELFPAY ==
--- NOTE | 2024-07-29 13:16 | AM.OFFVISNUR ---
Intake Visit Reasons: PVR check Allergies No Known Allergies Allergy (Verified 07/26/24 11:13) Nursing Note Patient presents to the office for a PVR check due to reports of having hard time voiding over the last couple days post a voiding trial. Reports he voids very frequently, but only small amounts. states the patient has not been feeling well the last couple days and has been having chills. Temperature was note checked. States Friday after the cath removal he vomited, but has not since. Bladder scan amount was 14ml. Will have patient provide urine sample and send culture for testing. Patient reports he has his valve surgery on 08/16/24. Office Procedures Post Void Residual Post Residual Void Details: Patient attempted to void, but unable. Bladder scan amount 14ml. Post Void Residual (PVR): 14 43325-Riky Void Residual by ultrasound Assessment & Plan Assessment & Plan Orders: Orders AMB Post Void Residual by ultrasound Today R33.9 - Retention of urine, unspecified Coding CPT Codes Post Residual Void - PVR CPT Code: 41306-Eylf Void Residual by ultrasound ([id number])
--- OUTSIDE RECORDS SUMMARY | 2024-07-29 13:58 | XMS_ITS | Clinical Summary ---
Author Organization [facility] Address [address] [place] [address] Phone Care Team Providers Care Brim And Crown Presser Name Role Phone Sharri Mills MD Primary Care Provider [phone] Allergies No known active allergies Medications aspirin [...] 03/22/2024 Obstructive sleep apnea 07/20/2021 Overview (03/22/2024): [facility] Home sleep test 07/10/2021; weight 225; [...] with reflex to direct LDL; Future Old [place] (myocardial infarction) 07/07/2005 Overview (03/22/2024): IWMI 11/27 obtuse marginal Resolved Problems Problem Noted Date Diagnosed Date Resolved Date Alcohol use disorder, severe, dependence 06/30/2019 03/22/2024 Encounters Date Type Department Care Team Description 07/29/2024 Telephone [facility] Cardiology [facility] [address] [place] [phone] Mandy Reid MD [id number] (ok to book) 07/12/2024 9:00 AM EDT Office Visit [facility] Hematology Oncology [address] [place] [phone] Kt Roa MD Hairy cell leukemia, in remission (CMS/HCC) (Primary Dx) 06/23/2024 11:20 AM EST Consult [facility] Cardiology [facility] [address] [place] [phone] Mandy Reid MD Nonrheumatic aortic valve stenosis (Primary Dx); Coronary artery disease, unspecified vessel or lesion type, unspecified whether angina present, unspecified whether emmonak or transplanted heart 06/23/2024 Telephone [facility] Cardiology [facility] [address] [place] [address] Mandy Reid MD urology (Urology ) 06/10/2024 8:30 AM EST - 06/10/2024 9:30 AM EST Surgery [facility] Cardiac [employer]et[employer] Torch [place] [address] [place] [phone] Mandy Reid MD Left and right heart cath / Coronary angiography 06/10/2024 7:23 AM EST - 06/10/2024 2:07 PM EST Hospital Encounter [facility] Cardiac [facility] [place] [place] [phone] Mandy Reid MD Aortic valve stenosis, etiology of cardiac valve disease unspecified; Coronary artery disease involving emmonak coronary artery of emmonak heart without angina pectoris; Hairy cell leukemia, in remission (CMS/HCC); Asbestosis ([facility]/HCC); Type 2 diabetes mellitus with stage 3 chronic kidney disease, without long-term current use of insulin, unspecified whether stage 3a or 3b CKD ([facility]/HCC) Discharge Disposition: Home or Self Care 05/18/2024 Telephone [facility] [address] [place] [address] Mandy Reid MD hospital procedure (Cardiac cath) 05/10/2024 7:40 AM EST Office Visit [facility] [address] [place] [address] Tiffany Chapman NP Aortic valve stenosis, etiology of cardiac valve disease unspecified (Primary Dx); Coronary artery disease involving emmonak coronary artery of emmonak heart without angina pectoris; Primary hypertension from [...] (coronary artery disease) Hypercholesteremia Hearing loss Asbestosis (CMS/HCC) Hypertension Prostatism 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 (CMS/HCC) NETTA (obstructive sleep apnea) Aortic stenosis Hairy cell leukemia COPD (chronic obstructive pulmonary disease) (CM S/HCC) NETTA (obstructive sleep apnea) 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) Splenomegaly Anxiety Pulmonary nodules Alcohol use disorder, severe, dependence ([facility]/HC C) 06/30/2019 Family History Medical History Relation Name Comments Diabetes Father stroke Cataracts Mother Relation Name Status Comments Father Mother Social History Tobacco Use Types Packs/Day Years Used Date Smoking Tobacco: Every Day Cigarettes 1 64.3 Started: 1960 Smokeless Tobacco: Never Tobacco Cessation:Ready [...] Description 08/06/2024 9:00 AM EDT Ancillary Procedure [facility] [address] [facility] [address] [place] [address] 08/25/2024 8:00 AM EDT Office Visit Endocrinology - [address] [phone] Pippa Marte PA [address] [place], [place] 08/31/2024 12:40 PM EDT Office Visit [facility] [address] [place] [phone] Rocky Hutchinson, [place] [address] [place] [address] Dr [address] [place] [address] 09/23/2024 8:00 AM EDT Office Visit [facility] - [address] [phone] Ne Summers PA [address] [place] [address] 10/25/2024 2:10 PM EDT Office Visit [facility] [address] [place] [address] Rocky Hutch[place], [place] [address] [place] [address] Dr [address] [place] [address] 01/06/2025 1:00 PM EDT Office Visit Nephrology - [address] [phone] Bharath Gonzalez MD [address] [facility] [address] [place] [phone] 08/01/2025 8:30 AM EDT Office Visit [facility] Hematology Oncology [address] [place] [phone] Kt Roa MD [address] [place] [address] Health Maintenance Due Date Last Done Comments [...] 08/31/2014, 12/20/2010, Additional history exists RSV Immunization Adult Patients Completed 04/07/2023 Zoster Vaccines Completed 04/07/2023, 11/27, [...] type, unspecified whether angina present, unspecified whether emmonak or transplanted heart LEFT AND RIGHT HEART CATH / CORONARY ANGIOGRAPHY Routine 06/10/2024 10:07 AM EST Aortic valve stenosis, etiology of cardiac valve disease unspecified Coronary artery disease involving emmonak coronary artery of emmonak heart without angina pectoris POCT ARTERIAL CARDIAC [...] GEMUSE QTc 485 ms GEMUSE P Wave [place] 28 degrees GEMUSE R [place] 88 degrees GEMUSE T [place] 75 degrees GEMUSE ECG Interpretation Normal sinus rhythm Inferior infarct , age undetermined Abnormal ECG When compared with ECG of 10-JUN-2024 08:23, Inferior infarct is now Present Nonspecific T wave abnormality now evident in Lateral leads Confirmed by MANDY REID ([id number]) on 06/23/2024 1:01:11 PM GEMUSE 06/23/2024 [...] right breast vein access under ultrasonographic evidence. Liberty-Margy catheter was used for better catheterization. Findings: [...] surgery evaluation for TAVR. Mandy Reid MD [facility] us Tiffany Chapman NP CV CARDIAC CATH PROCED URES Final Result * POCT Cardiac cath blood gas (06/10/2024 9:58 AM EST) Only the most recent of2 resultswithin the time period is included. pCO2 Cath POCT 50.1 mmHg 06/10/2024 10:00 AM [facility] pO2 Cath POCT 62 mmHg 06/10/2024 10:00 AM [facility] SO2 Cath POCT 90 % 06/10/2024 10:00 AM [facility] Sample Site POCT Aorta 06/10/2024 10:00 AM [facility] Device POCT [id number] 06/10/2024 10:00 AM [facility] FIO2 POCT 21.0 % 06/10/2024 10:00 AM [facility] POCT Comment ROOM AIR 06/10/2024 10:00 AM [facility] Blood Aortic structure / Unknown 06/10/2024 9:58 AM EST 06/10/2024 10:02 AM EST us Mandy Reid MD LAB POINT OF CARE TE ST DOCKED DEVICE UNSOLICITED RESULTS Final Result [facility] [address] [place] [address], [place] [phone] * ECG 12 lead - Procedural (No Charge) (06/10/2024 8:23 AM EST) Ventricular Rate ECG 99 BPM GEMUSE Atrial Rate 99 BPM GEMUSE P-R Interval 146 ms GEMUSE QRS Duration 88 ms GEMUSE Q-T Interval 376 ms GEMUSE QTc 482 ms GEMUSE P Wave [place] 48 degrees GEMUSE R [place] 121 degrees GEMUSE T [place] 81 degrees GEMUSE ECG Interpretation Normal sinus rhythm Prolonged QT Abnormal ECG When compared with ECG of 18-NOV-2001 06:57, Vent. rate has increased BY ??38 BPM Nonspecific T wave abnormality now evident in Anterior leads Confirmed by NEHA HUBER ([id number]) on 06/13/2024 8:45:22 AM GEMUSE 06/10/2024 8:23 AM EST 06/13/2024 8:45 AM EST us Mandy Reid MD ECG ORDERABLES Final Result GEMUSE * (ABNORMAL) Protime-INR (06/10/2024 8:14 AM EST) Protime 14.1(H) 10.6 - 13.9 sec LAB COAGULATION METHOD 06/10/2024 8:32 AM EST [facility] INR 1.1 LAB COAGULATION METHOD 06/10/2024 8:32 AM EST [facility] Blood Venous blood specimen / Unknown Venipuncture / Unknown 06/10/2024 8:14 AM EST 06/10/2024 8:20 AM EST Mandy Reid MD LAB BLOOD ORDERABLES Final Res ult [facility] [address] [place] [address], * CBC (06/10/2024 8:14 AM EST) WBC 5.7 4.8 - 10.8 K/mcL LAB HEMETOLOGY METHOD 06/10/2024 8:23 AM [facility] RBC 5.00 4.50 - 5.50 M/mcL LAB HEMETOLOGY METHOD 06/10/2024 8:23 AM [facility] Hemoglobin 15.4 13.5 - 17.5 g/dL LAB HEMETOLOGY METHOD 06/10/2024 8:23 AM [facility] Hematocrit 46.8 42.0 - 54.0 % LAB HEMETOLOGY METHOD 06/10/2024 8:23 AM [facility] MCV 94.0 79.0 - 98.0 FL LAB HEMETOLOGY METHOD 06/10/2024 8:23 AM [facility] MCH 30.9 27.0 - 32.0 pcg LAB HEMETOLOGY METHOD 06/10/2024 8:23 AM [facility] MCHC 32.9 32.0 - 37.0 g/dL LAB HEMETOLOGY METHOD 06/10/2024 8:23 AM [facility] RDW 13.1 11.0 - 15.0 % LAB HEMETOLOGY METHOD 06/10/2024 8:23 AM [facility] Platelets 172 130 - 400 K/mcL LAB HEMETOLOGY METHOD 06/10/2024 8:23 AM [facility] MPV 9.4 7.0 - 11.0 FL LAB HEMETOLOGY METHOD 06/10/2024 8:23 AM [facility] NRBC 0.0 <1.0 % LAB HEMETOLOGY METHOD 06/10/2024 8:23 AM [facility] NRBC Absolute 0.00 <0.10 K/mcL LAB HEMETOLOGY METHOD 06/10/2024 8:23 AM [facility] Blood Venous blood specimen / Unknown Venipuncture / Unknown 06/10/2024 8:14 AM EST 06/10/2024 8:21 AM EST us Mandy Reid MD LAB BLOOD ORDERABLES Final Res ult [facility] [address] [place] [address], * (ABNORMAL) Basic metabolic panel (06/10/2024 8:14 AM EST) Sodium 141 133 - 145 mmol/L LAB CHEMISTRY METHOD 06/10/2024 8:49 AM [facility] Potassium 4.0 3.5 - 5.5 mmol/L LAB CHEMISTRY METHOD 06/10/2024 8:49 AM [facility] Chloride 110 96 - 110 mmol/L LAB CHEMISTRY METHOD 06/10/2024 8:49 AM [facility] CO2 26 21 - 32 mmol/L LAB CHEMISTRY METHOD 06/10/2024 8:49 AM [facility] Anion Gap 5 3 - 11 LAB CHEMISTRY METHOD 06/10/2024 8:49 AM [facility] Glucose 163(H) 70 - 100 mg/dL LAB CHEMISTRY METHOD 06/10/2024 8:49 AM [facility] BUN 18 5 - 25 mg/dL LAB CHEMISTRY METHOD 06/10/2024 8:49 AM [facility] Creatinine 1.24 0.70 - 1.30 mg/dL LAB CHEMISTRY METHOD 06/10/2024 8:49 AM [facility] eGFR 60 >=60 mL/min/1. 73m2 LAB CHEMISTRY METHOD 06/10/2024 8:49 AM EST [facility] Comment:Calculation based on the??Chronic Kidney Disease Epidemiology Collaboration (CKD-EPI) equation refit??without adjustment for race. BUN/Creatinine Ratio 14.5 LAB CHEMISTRY METHOD 06/10/2024 8:49 AM EST [facility] Calcium 9.0 8.5 - 10.5 mg/dL LAB CHEMISTRY METHOD 06/10/2024 8:49 AM [facility] Blood Venous blood specimen / Unknown Venipuncture / Unknown 06/10/2024 8:14 AM EST 06/10/2024 8:21 AM EST us Mandy Reid MD LAB BLOOD ORDERABLES Final Res ult [facility] [address] [place] [address], * Lipid panel with reflex to direct LDL (03/23/2024 12:11 PM EST) Cholesterol 133 0 - 200 mg/dL LAB CHEMISTRY METHOD 03/23/2024 2:40 PM [facility] Triglycerides 123 0 - 150 mg/dL LAB CHEMISTRY METHOD 03/23/2024 2:40 PM [facility] HDL 52 >=40 mg/dL LAB CHEMISTRY METHOD 03/23/2024 2:40 PM [facility] LDL Calculated 56 0 - 100 mg/dL LAB CHEMISTRY METHOD 03/23/2024 2:40 PM [facility] VLDL Cholesterol Brad 24.6 mg/dL LAB CHEMISTRY METHOD 03/23/2024 2:40 PM [facility] Non HDL Chol. (LDL+VLDL) 81 <145 mg/dL LAB CHEMISTRY METHOD 03/23/2024 2:40 PM [facility] Chol/HDL Ratio 2.6 0.0 - 4.4 LAB CHEMISTRY METHOD 03/23/2024 2:40 PM EST [facility] Blood Venous blood specimen / Unknown Venipuncture / Unknown 03/23/2024 12:11 PM EST 03/23/2024 12:11 PM EST Sharri Mills MD LAB BLOOD ORDERABLES Final Resul t [facility] [address] [place] [address], [place] [phone] * (ABNORMAL) Microalbumin creatinine urine ratio (03/16/2024 8:40 AM EST) Creatinine, Urine 235.0 mg/dL LAB CHEMISTRY METHOD 03/16/2024 11:01 AM [facility] Microalb, Ur 790.0(H) 0.0 - 29.0 mg/L LAB CHEMISTRY METHOD 03/16/2024 11:01 AM EST [facility] Microalb/Crea t Ratio 336(H) <30 mg/g creat LAB CHEMISTRY METHOD 03/16/2024 11:01 AM EST [facility] Urine Urine specimen obtained by clean catch procedure / Unknown Non-blood Collection / Unknown 03/16/2024 8:40 AM EST 03/16/2024 8:40 AM EST Bharath Gonzalez MD LAB URINE ORDERABLES Final Res ult [facility] [address] [place] [address], [place] [phone] * Hemoglobin A1c (03/16/2024 8:40 AM EST) Hemoglobin A1C 5.2 <6.5 % LAB CHEMISTRY METHOD 03/16/2024 10:34 PM EST [facility] Mean Bld Glu Estim. 103 mg/dL LAB CHEMISTRY METHOD 03/16/2024 10:[address] [facility] Blood Venous blood specimen / Unknown Venipuncture / Unknown 03/16/2024 8:40 AM EST 03/16/2024 8:40 AM EST us Pippa BLANTON LAB BLOOD ORDERABLES Final Resul t [facility] [address] [place] [address], * CT LUNG SCREENING LOW DOSE (01/09/2022 3:31 PM EDT) Anatomical Region Laterality Modality Computed Tomogra phy 01/09/2022 9:31 AM EDT Narrative 01/09/2022 3:31 PM EDT [facility] Diagnostic Imaging Department [address] [place] [address] Patient: ??BILLIE BALDERAS ?/Age/Sex: 1945 - 76 - M Unit#: ??[id number] ? Location/Status: ??SPDICATLS/REG CLI ? Mnemonic/Ordering Site: ??CTLUNGLD/SPCT Ordering Physician: ??ISAIAS MARTIN MD CT Lung Screening Low Dose - 09/14/22 - 0938 Indication: 120 pack-year smoking history (2pack/day for 60 years), current smoker Technique: Low-dose CT scan of the chest obtained as a lung cancer screening study. Multiplanar reformatted images were obtained. Scanner: Mall Street Dose reduction technique: ASIR (Adaptive statistical iterative [...] Procedure Note Otto Hopper MD - 04/17/2022 [facility] Diagnostic Imaging Department [address] [place] [address] Patient: BILLIE BALDERAS Jessie Win./Age/Sex: 1945 - 76 - M Unit#: [id number] Location/Status: SPDICATLS/REG CLI Mnemonic/Ordering Site: [facility] Ordering Physician: ISAIAS MARTIN MD CT Lung Screening Low Dose - 01/09/22937 Indication: 120 pack-year smoking history (2pack/day for 60 years),current smoker Technique: Low-dose CT scan of the chest obtained as a lung cancerscreening study. Multiplanar reformatted images were obtained. Scanner: Mall Street Dose reduction technique: ASIR (Adaptive statistical iterativereconstruction) [...] Recently Relevant to Health Maintenance Insurance MEDICARE [facility] [place] [address] Care Teams Brim And Crown Presser Relationship Specialty Start Date End Date Sharri Mills MD [address] [place] [address] PCP - General 11/23/01
--- OUTSIDE RECORDS SUMMARY | 2024-07-29 13:58 | XMS_ITS | Clinical Summary ---
Author Organization [facility] Address [address] [place] [address] Care Team Providers Care Loading Dock Hand Name Role Phone Sharri Mills MD Primary Care Provider [phone] Allergies No known active allergies Medications Medication [...] age to complete this topic Care Teams Loading Dock Hand Relationship Specialty Start Date End Date Sharri Mills MD PCP - General Internal Medicine 07/09/19
--- OUTSIDE RECORDS SUMMARY | 2024-07-29 13:58 | XMS_ITS | Encounter Summary ---
Author Organization [facility] Address [address] [place] [address] Care Team Providers Care Fire Warden Name Role Phone Sharri Mills MD Primary Care Provider [phone] Reason for Visit * Reason Onset Date Comments [id number] (ok to book) 07/29/2024 Encounter Details Date Type Department Care Team ([facility] st Contact Info) Description 07/29/2024 Telephone [facility] [address] [place] [address] Mandy Hernandez MD [address] [place] [address] Dr [address] [place] [address] [id number] (ok to book) Social History Tobacco Use Types Packs/Day Years Used Date Smoking Tobacco: Every Day Cigarettes 1 64.3 Started: 1960 Smokeless Tobacco: Never Alcohol Use Standard Drinks/Week [...] as of this encounter Progress Notes * Martha Huitron RN - 07/29/2024 12:57 PM EDT Zio Patch monitor to be done prior to discharge if needed s/p TAVR per Dr Hernandez. * Gracie Castellon - 07/29/2024 11:30 AM EDT Prior Auth Status: NO Auth Req per Medicare Insurance Referral: n/a CPT: 41768 - ZioPatch DX: I35.0, I25.10, I10, R06.02 Duration: 14 Days [place]: Mary FREDERICK to BOOK documented in this encounter Plan of Treatment Upcoming Encounters Date Type Department Care Team (Late st Contact Info) Description 08/06/2024 9:00 AM EDT Ancillary Procedure [facility] [address] [facility] [address] [place] [address] 08/25/2024 8:00 AM EDT Office Visit [address] [phone] Pippa Marte PA [address] [place] [address] 08/31/2024 12:40 PM EDT Office Visit [facility] [address] [place] [address] Rocky Hutchinson NP [address] [place] [address] Dr [address] [place] [address] 09/23/2024 8:00 AM EDT Office Visit [facility] - [address] [phone] Ne Summers PA [address] [place] [address] 10/25/2024 2:10 PM EDT Office Visit [facility] [address] [place] [address] Rocky Hutchinson NP [address] [place] [address] Dr [address] [place] [address] 01/06/2025 1:00 PM EDT Office Visit Nephrology - [place] [address] [place] [address] Bharath Gonzalez MD [address] [facility] [address] [place] [address] 08/01/2025 8:30 AM EDT Office Visit [facility] Hematology Oncology [address] [place] [address] Kt Roa MD [address] [place] [address] documented as of this encounter Visit Diagnoses Not on filedocumented in this encounter Additional Health Concerns Assessment Noted Time PHQ-9 Depression Total Score: 0 03/19/20 24 1:17 PM EST A fall risk assessment has been complete d for the patient 03/19/2024 1:13 PM EST documented as of this encounter Care Teams Fire Warden Relationship Specialty Start Date End Date Sharri Mills MD [address] [place] [address] PCP - General 11/23/01 documented as of this encounter
--- OUTSIDE RECORDS SUMMARY | 2024-07-29 13:58 | XMS_ITS ---
Author Organization [facility] Address [address] [place] [address] Phone Care Team Providers Care Watermelon Inspector Name Role Phone Sharri Mills MD Primary Care Provider [phone] Active Problems Problem Noted Date Diagnosed Date Hairy cell leukemia 03/22/2024 Assessment & Plan (03/23/2024 11:52 AM EST): Splenomegaly 03/22/2024 Obstructive sleep apnea 07/20/2021 Overview (03/22/2024): [facility] Home sleep test 07/10/2021; weight [...] with reflex to direct LDL; Future Old [place] (myocardial infarction) 07/07/2005 Overview (03/22/2024): IWMI 11/27 obtuse marginal Current Oncology Plans No current plan information found. Past Plans No past plan information found. Radiation Treatments * No radiation treatments are documented for this patient in [facility]. Treatments may have been administered in another system. Lifetime Dose Tracking * Chemical Lifetime Dose Automatic Entry Manual Entr y Radiation 536 mGy 0 mGy 536 mGy Fluoro Time 4.7 minutes 0 minutes 4.7 minutes Resolved Problems Problem Noted Date Diagnosed Date Resolved Date Alcohol use disorder, severe, dependence 06/30/2019 03/22/2024
== END 2024-07-29 13:58 | disposition home or self-care (01) ==
LOC: HO.HUSH 12:52
PROVIDERS: PCP Internal Medicine; Visit Provider Nurse Practitioner Family
DX: Z13.9 Encounter for screening, unspecified (principal)

== ENCOUNTER 2024-07-29 12:51 | Outpatient (REF) | payer MEDICARE, OTHER, SELFPAY ==
--- OUTSIDE RECORDS SUMMARY | 2024-07-29 17:16 | XMS_ITS | Clinical Summary ---
Author Organization [facility] Address [address] [place] [address] Care Team Providers Care Weaver Dobby Loom Name Role Phone Sharri Mills MD Primary Care Provider [phone] Allergies No known active allergies Medications Medication [...] age to complete this topic Care Teams Weaver Dobby Loom Relationship Specialty Start Date End Date Sharri Mills MD PCP - General Internal Medicine 07/09/19
--- OUTSIDE RECORDS SUMMARY | 2024-07-29 17:16 | XMS_ITS ---
Author Organization [facility] Address [address] [place] [address] Phone Care Team Providers Care Carbide Grinder Name Role Phone Sharri Mills MD Primary Care Provider [phone] Active Problems Problem Noted Date Diagnosed Date Hairy cell leukemia 03/22/2024 Assessment & Plan (03/23/2024 11:52 AM EST): Splenomegaly 03/22/2024 Obstructive sleep apnea 07/20/2021 Overview (03/22/2024): [facility] Home sleep test 07/10/2021; [...] with reflex to direct LDL; Future Old [place] (myocardial infarction) 07/07/2005 Overview (03/22/2024): IWMI 11/27 obtuse marginal Current Oncology Plans No current plan information found. Past Plans No past plan information found. Radiation Treatments * No radiation treatments are documented for this patient in [facility]. Treatments may have been administered in another system. Lifetime Dose Tracking * Chemical Lifetime Dose Automatic Entry Manual Entr y Radiation 536 mGy 0 mGy 536 mGy Fluoro Time 4.7 minutes 0 minutes 4.7 minutes Resolved Problems Problem Noted Date Diagnosed Date Resolved Date Alcohol use disorder, severe, dependence 06/30/2019 03/22/2024
--- OUTSIDE RECORDS SUMMARY | 2024-07-29 17:16 | XMS_ITS | Encounter Summary ---
Author Organization [facility] Address [address] [place] [address] Care Team Providers Care Plum Packer Name Role Phone Sharri Mills MD Primary Care Provider [phone] Reason for Visit * Reason Onset Date Comments pt needs labs before 10/25/24 TAVR f/u visit with [facility] 07/29/2024 Encounter Details Date Type Department Care Team (Late st Contact Info) Description 07/29/2024 Telephone [facility] [place] [address] [place] [address] Mandy Hernandez MD [address] [place] [address] Dr [address] [place] [address] pt needs labs before 10/25/24 TAVR f/u visit with [facility] Social History Tobacco Use Types Packs/Day Years [...] as of this encounter Progress Notes * Xiomara Steel - 07/29/2024 3:15 PM EDT Cristobal is scheduled for a TAVR follow up visit with Rocky Hutchinson on Friday, October 25, 2024 at 2:10 PM. Can you please arrange labs prior to his appointment? Thanks. documented in this encounter Plan of Treatment Upcoming Encounters Date Type Department Care Team (Late st Contact Info) Description 08/25/2024 8:00 AM EDT Office Visit Endocrinology [address] [phone] Pippa Marte PA [address] [place] [address] 08/31/2024 12:40 PM EDT Office Visit [facility] [address] [place] [address] Rocky Hutchinson NP [address] [place] [address] Dr [address] [place] [address] 09/23/2024 8:00 AM EDT Office Visit [facility] - [address] [phone] Ne Summers PA [address] [place] [address] 10/15/2024 1:30 PM EDT Ancillary Procedure [facility] [address] [facility] [address] [place] [address] 10/25/2024 2:10 PM EDT Office Visit [facility] [address] [facility] [address] [place] [address] Rocky Hutchinson NP [address] [place] [address] Dr [address] [place] [address] 01/06/2025 1:00 PM EDT Office Visit Nephrology - [address] [phone] Bharath Gonzalez MD [address] [phone] 08/01/2025 8:30 AM EDT Office Visit [facility] Hematology Oncology [address] [place] [phone] Kt Roa MD [address] [place] [address] documented as of this encounter Visit Diagnoses Not on filedocumented in this encounter Additional Health Concerns Assessment Noted Time PHQ-9 Depression Total Score: 0 03/19/20 1:17 PM EST A fall risk assessment has been complete d for the patient 03/19/2024 1:13 PM EST documented as of this encounter Care Teams Plum Packer Relationship Specialty Start Date End Date Sharri Mills MD [address] [place] [address] PCP - General 11/23/01 documented as of this encounter
--- OUTSIDE RECORDS SUMMARY | 2024-07-29 17:16 | XMS_ITS | Clinical Summary ---
Author Organization [facility] Address [address] [place] [address] Phone Care Team Providers Care Cap And Hat Production Supervisor Name Role Phone Sharri Mills MD Primary Care Provider [phone] Allergies No known active allergies Medications aspirin [...] 03/22/2024 Obstructive sleep apnea 07/20/2021 Overview (03/22/2024): [facility] Home sleep test 07/10/2021; weight 225; BMI [...] with reflex to direct LDL; Future Old AR (myocardial infarction) 07/07/2005 Overview (03/22/2024): IWMI 11/27 obtuse marginal Resolved Problems Problem Noted Date Diagnosed Date Resolved Date Alcohol use disorder, severe, dependence 06/30/2019 03/22/2024 Encounters Date Type Department Care Team Description 07/29/2024 Telephone [facility] [address] [place] [address] Mandy Reid MD pt needs labs before 10/25/24 TAVR f/u visit with [facility] 07/29/2024 Telephone [facility] [address] [facility] [address] [place] [address] Mandy Reid MD [id number] (ok to book) 07/12/2024 9:00 AM EDT Office Visit [facility] Hematology Oncology [address] [place] [address] Kt Roa MD Hairy cell leukemia, in remission (CMS/HCC) (Primary Dx) 06/23/2024 11:20 AM EST Consult [facility] [address] [place] [address] Mandy Reid MD Nonrheumatic aortic valve stenosis (Primary Dx); Coronary artery disease, unspecified vessel or lesion type, unspecified whether angina present, unspecified whether choctaw or transplanted heart 06/23/2024 Telephone [facility] [address] [facility] [address] [place] [address] Mandy Reid MD urology (Urology ) 06/10/2024 8:30 AM EST - 06/10/2024 9:30 AM EST Surgery [facility] Cardiac Sock [place] [address] [place] [phone] Mandy Reid MD Left and right heart cath / Coronary angiography 06/10/2024 7:23 AM EST - 06/10/2024 2:07 PM EST Hospital Encounter [facility] Cardiac [facility] [place] [address] [place] [phone] Mandy Reid MD Aortic valve stenosis, etiology of cardiac valve disease unspecified; 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; Hairy cell leukemia, in remission ([facility]); Asbestosis ([facility]); Type 2 diabetes mellitus with stage 3 chronic kidney disease, without long-term current use of insulin, unspecified whether stage 3a or 3b CKD ([facility]) Discharge Disposition: Home or Self Care 05/18/2024 Telephone [facility]iology Associates [facility] [address] [facility] [address] [place] [address] Mandy Reid MD hospital procedure (Cardiac cath) 05/10/2024 7:40 AM EST Office Visit [facility] Cardiology [facility] [address] [address] [place] [address] Tiffany Chapman NP Aortic valve stenosis, etiology of cardiac valve disease unspecified (Primary Dx); 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; Primary hypertension from [...] Pulmonary nodules Alcohol use disorder, severe, dependence (CMS/HC C) 06/30/2019 Family History Medical History Relation [...] Description 08/25/2024 8:00 AM EDT Office Visit [address] [phone] Pippa Marte PA [address] [place] [address] 08/31/2024 12:40 PM EDT Office Visit [facility]iology [facility] [address] [facility] [address] [place] [phone] Rocky Hutchinson NP [address] [place] [address] Dr [address] [place] [address] 09/23/2024 8:00 AM EDT Office Visit Adult Medicine [address] [phone] Ne Summers PA [address] [place] [address] 10/15/2024 1:30 PM EDT Ancillary Procedure [facility] Cardiology [facility] [address] [facility] [address] [place] [phone] 10/25/2024 2:10 PM EDT Office Visit [facility]iology [facility] [address] [place] [phone] Rocky Hutchinson NP [address] [place] [address] Dr [address] [place] [address] 01/06/2025 1:00 PM EDT Office Visit Nephrology - [place] [address] [place] [address] Bharath Gonzalez MD [address] [phone] 08/01/2025 8:30 AM EDT Office Visit [facility] Hematology Oncology [address] [place] [phone] Kt Roa MD [address] [place] [address] Health Maintenance Due Date Last Done Comments [...] type, unspecified whether angina present, unspecified whether choctaw or transplanted heart LEFT AND RIGHT HEART CATH / CORONARY ANGIOGRAPHY Routine 06/10/2024 10:07 AM EST Aortic valve stenosis, etiology of cardiac valve disease unspecified 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 [place]y catheter was used for better catheterization. Findings: [...] surgery evaluation for TAVR. Mandy Reid MD [facility]. us Tiffany Chapman NP CV CARDIAC CATH PROCED URES Final Result * POCT Cardiac cath blood gas (06/10/2024 9:58 AM EST) Only the most recent of2 resultswithin the time period is included. pCO2 Cath POCT 50.1 mmHg 06/10/2024 10:00 AM [facility] pO2 Cath POCT 62 mmHg 06/10/2024 10:00 AM [facility] SO2 Cath POCT 90 % 06/10/2024 10:00 AM [facility] Sample Site POCT Aorta 06/10/2024 10:00 AM [facility] Device POCT [id number] 06/10/2024 10:00 AM [facility] FIO2 POCT 21.0 % 06/10/2024 10:00 AM EST [facility] POCT Comment ROOM AIR 06/10/2024 10:00 AM EST [facility] Blood Aortic structure / Unknown 06/10/2024 9:58 AM EST 06/10/2024 10:02 AM EST Mandy Reid MD LAB POINT OF CARE TE ST DOCKED DEVICE UNSOLICITED RESULTS Final Result Performing Organization Address City/[facility]/ZIP Co de Phone Number [facility]) [facility] [address] [place] [address], [place] [phone] * ECG 12 lead - Procedural (No Charge) (06/10/2024 8:23 AM EST) Ventricular Rate ECG 99 BPM GEMUSE Atrial Rate 99 BPM GEMUSE P-R Interval 146 ms GEMUSE QRS Duration 88 ms GEMUSE Q-T Interval 376 ms GEMUSE QTc 482 ms GEMUSE P Wave [place] 48 degrees GEMUSE R [place] 121 degrees GEMUSE T [place] 81 degrees GEMUSE ECG Interpretation Normal sinus [...] LAB COAGULATION METHOD 06/10/2024 8:32 AM EST [facility] INR 1.1 LAB COAGULATION METHOD 06/10/2024 8:32 AM EST [facility] Blood Venous blood specimen / Unknown Venipuncture / Unknown 06/10/2024 8:14 AM EST 06/10/2024 8:20 AM EST us Mandy Reid MD LAB BLOOD ORDERABLES Final Res ult [facility] [address] [place] [address], * CBC (06/10/2024 8:14 AM EST) WBC 5.7 4.8 - 10.8 K/mcL LAB HEMETOLOGY METHOD 06/10/2024 8:23 AM [facility] RBC 5.00 4.50 - 5.50 M/mcL LAB HEMETOLOGY METHOD 06/10/2024 8:23 AM [facility] Hemoglobin 15.4 13.5 - 17.5 g/dL LAB HEMETOLOGY METHOD 06/10/2024 8:23 AM [facility] Hematocrit 46.8 42.0 - 54.0 % LAB HEMETOLOGY METHOD 06/10/2024 8:23 AM [facility] MCV 94.0 79.0 - 98.0 FL LAB HEMETOLOGY METHOD 06/10/2024 8:23 AM [facility] MCH 30.9 27.0 - 32.0 pcg LAB HEMETOLOGY METHOD 06/10/2024 8:23 AM [facility] MCHC 32.9 32.0 - 37.0 g/dL LAB HEMETOLOGY METHOD 06/10/2024 8:23 AM [facility] RDW 13.1 11.0 - 15.0 % LAB HEMETOLOGY METHOD 06/10/2024 8:23 AM [facility] Platelets 172 130 - 400 K/mcL LAB HEMETOLOGY METHOD 06/10/2024 8:23 AM EST [facility] MPV 9.4 7.0 - 11.0 FL LAB HEMETOLOGY METHOD 06/10/2024 8:23 AM EST [facility] NRBC 0.0 <1.0 % LAB HEMETOLOGY METHOD 06/10/2024 8:23 AM EST [facility] NRBC Absolute 0.00 <0.10 K/mcL LAB HEMETOLOGY METHOD 06/10/2024 8:23 AM EST [facility] Blood Venous blood specimen / Unknown Venipuncture / Unknown 06/10/2024 8:14 AM EST 06/10/2024 8:21 AM EST us Mandy Reid MD LAB BLOOD ORDERABLES Final Res ult [facility] [address] [place] [address], * (ABNORMAL) Basic metabolic panel (06/10/2024 8:14 AM EST) Sodium 141 133 - 145 mmol/L LAB CHEMISTRY METHOD 06/10/2024 8:49 AM [facility] Potassium 4.0 3.5 - 5.5 mmol/L LAB CHEMISTRY METHOD 06/10/2024 8:49 AM [facility] Chloride 110 96 - 110 mmol/L LAB CHEMISTRY METHOD 06/10/2024 8:49 AM [facility] CO2 26 21 - 32 mmol/L LAB CHEMISTRY METHOD 06/10/2024 8:49 AM [facility] Anion Gap 5 3 - 11 LAB CHEMISTRY METHOD 06/10/2024 8:49 AM [facility] Glucose 163(H) 70 - 100 mg/dL LAB CHEMISTRY METHOD 06/10/2024 8:49 AM [facility] BUN 18 5 - 25 mg/dL LAB CHEMISTRY METHOD 06/10/2024 8:49 AM [facility] Creatinine 1.24 0.70 - 1.30 mg/dL LAB CHEMISTRY METHOD 06/10/2024 8:49 AM [facility] eGFR 60 >=60 mL/min/1. 73m2 LAB CHEMISTRY METHOD 06/10/2024 8:49 AM [facility] Comment:Calculation based on the??Chronic Kidney Disease Epidemiology Collaboration (CKD-EPI) equation refit??without adjustment for race. BUN/Creatinine Ratio 14.5 LAB CHEMISTRY METHOD 06/10/2024 8:49 AM [facility] Calcium 9.0 8.5 - 10.5 mg/dL LAB CHEMISTRY METHOD 06/10/2024 8:49 AM [facility] Blood Venous blood specimen / Unknown Venipuncture / Unknown 06/10/2024 8:14 AM EST 06/10/2024 8:21 AM EST us Mandy Reid MD LAB BLOOD ORDERABLES Final Res ult [facility] [address] [place] [address], * Lipid panel with reflex to direct LDL (03/23/2024 12:11 PM EST) Cholesterol 133 0 - 200 mg/dL LAB CHEMISTRY METHOD 03/23/2024 2:40 PM [facility] Triglycerides 123 0 - 150 mg/dL LAB CHEMISTRY METHOD 03/23/2024 2:40 PM [facility] HDL 52 >=40 mg/dL LAB CHEMISTRY METHOD 03/23/2024 2:40 PM [facility] LDL Calculated 56 0 - 100 mg/dL LAB CHEMISTRY METHOD 03/23/2024 2:40 PM [facility] VLDL Cholesterol Brad 24.6 mg/dL LAB CHEMISTRY METHOD 03/23/2024 2:40 PM EST [facility] Non HDL Chol. (LDL+VLDL) 81 <145 mg/dL LAB CHEMISTRY METHOD 03/23/2024 2:40 PM EST [facility] Chol/HDL Ratio 2.6 0.0 - 4.4 LAB CHEMISTRY METHOD 03/23/2024 2:40 PM EST [facility] Blood Venous blood specimen / Unknown Venipuncture / Unknown 03/23/2024 12:11 PM EST 03/23/2024 12:11 PM EST us Sharri Mills MD LAB BLOOD ORDERABLES Final Resul t Performing Organization Address City/[facility]/ZIP Co de Phone Number [facility] [address] [place] [address], [place] [phone] * (ABNORMAL) Microalbumin creatinine urine ratio (03/16/2024 8:40 AM EST) Creatinine, Urine 235.0 mg/dL LAB CHEMISTRY METHOD 03/16/2024 11:01 AM [facility] Microalb, Ur 790.0(H) 0.0 - 29.0 mg/L LAB CHEMISTRY METHOD 03/16/2024 11:01 AM [facility] Microalb/Crea t Ratio 336(H) <30 mg/g creat LAB CHEMISTRY METHOD 03/16/2024 11:01 AM EST [facility] Urine Urine specimen obtained by clean catch procedure / Unknown Non-blood Collection / Unknown 03/16/2024 8:40 AM EST 03/16/2024 8:40 AM EST Bharath Gonzalez MD LAB URINE ORDERABLES Final Res ult [facility] [address] [place] [address], [place] [phone] * Hemoglobin A1c (03/16/2024 8:40 AM EST) Hemoglobin A1C 5.2 <6.5 % LAB CHEMISTRY METHOD 03/16/2024 10:34 PM EST [facility] Mean Bld Glu Estim. 103 mg/dL LAB CHEMISTRY METHOD 03/16/2024 10:34 PM EST [facility] Blood Venous blood specimen / Unknown Venipuncture / Unknown 03/16/2024 8:40 AM EST 03/16/2024 8:40 AM EST us Pippa BLANTON LAB BLOOD ORDERABLES Final Resul t [facility] [address] [place] [address], * CT LUNG SCREENING LOW DOSE (01/09/2022 3:31 PM EDT) Anatomical Region Laterality Modality Computed Tomogra phy 01/09/2022 9:31 AM EDT Narrative 01/09/2022 3:31 PM EDT [facility] Diagnostic Imaging Department [address] [place] [address] Patient: ??BILLIE BALDERAS ?/Age/Sex: 1945 - 76 - M Unit#: ??[id number] ? Location/Status: ??SPDICATLS/REG CLI ? Mnemonic/Ordering Site: ??CTLUNGLD/SPCT Ordering Physician: ??ISAIAS MARTIN MD CT Lung Screening Low Dose - 01/09/22 - 937 Indication: 120 pack-year smoking history (2pack/day for 60 years), current smoker Technique: Low-dose CT scan of the chest obtained as a lung cancer screening study. Multiplanar reformatted images were obtained. Scanner: [employer]orides Dose reduction technique: ASIR (Adaptive statistical iterative [...] Procedure Note Otto Hopper MD - 04/17/2022 [facility] Diagnostic Imaging Department [address] [place] [id number] Patient: BILLIE BALDERAS Jessie /Age/Sex: 1945 - 76 - M Unit#: [id number] Location/Status: SPDICATLS/REG CLI Mnemonic/Ordering Site: [facility] Ordering Physician: ISAIAS MARTIN MD CT Lung Screening Low Dose - 01/09/22 - 937 Indication: 120 pack-year smoking history (2pack/day for 60 years),current smoker Technique: Low-dose CT scan of the chest obtained as a lung cancerscreening study. Multiplanar reformatted images were obtained. Scanner: [employer] Dose reduction technique: ASIR (Adaptive statistical iterativereconstruction) [...] in the right lower lobe also noted ([id number]). No interval development of suspicious pulmonary nodule. [...] Relevant to Health Maintenance Insurance MEDICARE [facility] Care Teams Cap And Hat Production Supervisor Relationship Specialty Start Date End Date Sharri Mills MD [address] [place] [address] PCP - General 11/23/01
--- OUTSIDE RECORDS SUMMARY | 2024-07-29 17:16 | XMS_ITS | Encounter Summary ---
Author Organization [facility] Address [address] [place] [address] Care Team Providers Care Seamless Tube Mill Operator Name Role Phone Sharri Mills MD Primary Care Provider [phone] Reason for Visit * Reason Onset Date Comments [id number] (ok to book) 07/29/2024 Encounter Details Date Type Department Care Team ([facility] st Contact Info) Description 07/29/2024 Telephone [facility] [address] [place] [address] Mandy Hernandez MD [address] [place] [address] Dr [address] [place] [address] [id number] (ok to book) Social History Tobacco Use [...] Req per Medicare Insurance Referral: n/a CPT: 55507 - ZioPatch DX: I35.0, I25.10, I10, R06.02 Duration: 14 Days [place]: Mary FREDERICK to BOOK documented in this encounter Plan of Treatment Upcoming Encounters Date Type Department Care Team (Late st Contact Info) Description 08/25/2024 8:00 AM EDT Office Visit [address] [phone] Pippa Marte PA [address] [place] [address] 08/31/2024 12:40 PM EDT Office Visit [facility] Cardiology [facility] [address] [place] [address] Rocky Hutchinson NP [address] [place] [address] Dr [address] [place] [address] 09/23/2024 8:00 AM EDT Office Visit Adult Medicine [facility] - [address] [phone] Ne Summers PA [address] [place] [address] 10/15/2024 1:30 PM EDT Ancillary Procedure [facility] Cardiology [facility] [address] [facility] [address] [place] [phone] 10/25/2024 2:10 PM EDT Office Visit [facility] Cardiology [facility] [address] [place] [address] Rocky Hutchinson NP [address] [place] [address] Dr [address] [place] [address] 01/06/2025 1:00 PM EDT Office Visit Nephrology - [place] [address] [place] [address] Bharath Gonzalez MD [address] [facility] [address] [place] [address] 08/01/2025 8:30 AM EDT Office Visit [facility] Hematology Oncology [address] [place] [address] Kt Roa MD [address] [place] [address] documented as of this encounter Visit Diagnoses Not on filedocumented in this encounter Additional Health Concerns Assessment Noted Time PHQ-9 Depression Total Score: 0 03/19/20 24 1:17 PM EST A fall risk assessment has been complete d for the patient 03/19/2024 1:13 PM EST documented as of this encounter Care Teams Seamless Tube Mill Operator Relationship Specialty Start Date End Date Sharri Mills MD [address] [place] [address] PCP - General 11/23/01 documented as of this encounter
== END 2024-07-29 12:52 | disposition home or self-care (01) ==
LOC: HO.LNP 12:51
PROVIDERS: PCP Internal Medicine; Visit Provider Nurse Practitioner Family
DX: R33.9 Retention of urine, unspecified (principal)
CPT/HCPCS: 51798; 81003; 87086; 87088; 87186

== ENCOUNTER → 2024-08-02 15:35 | Outpatient (BNVA) | payer MEDICARE, OTHER, SELFPAY | PROVIDERS: PCP Internal Medicine; Visit Provider Nurse Practitioner Family | DX: R33.9 Retention of urine, unspecified (principal) | CPT/HCPCS: 51798 ==

== ENCOUNTER 2024-08-04 03:00 | Emergency (ER) | payer MEDICARE, OTHER, SELFPAY ==
[2024-08-04 03:01] VITALS: BP 128/67; PULSE 102; RESP 18; TEMP 36.4; O2SAT 95; BMI 32.3
--- OUTSIDE RECORDS SUMMARY | 2024-08-04 03:30 | XMS_ITS | Clinical Summary ---
Author Organization [facility] Address [address] [place] [address] Phone Care Team Providers Care Merchandise Pickup/Receiving Associate Name Role Phone Sharri Mills MD Primary Care Provider Allergies No known active allergies Medications aspirin [...] 03/22/2024 Obstructive sleep apnea 07/20/2021 Overview (03/22/2024): [facility] Home sleep test 07/10/2021; weight 225; BMI [...] Type Department Care Team Description 07/29/2024 [address] [facility] [address] [place] [address] Mandy Reid MD pt needs labs before 10/25/24 TAVR f/u visit with [facility] 07/29/2024 Telephone [facility] [address] [place] [address] Mandy Reid MD [id number] (ok to book) 07/12/2024 9:00 AM EDT Office Visit [facility] Hematology Oncology [address] [place] [address] Kt Roa MD Hairy cell leukemia, in remission (CMS/HCC) (Primary Dx) 06/23/2024 11:20 AM EST Consult [facility] [address] [place] [address] Mandy Reid MD Nonrheumatic aortic valve stenosis (Primary Dx); Coronary artery disease, unspecified vessel or lesion type, unspecified whether angina present, unspecified whether campo or transplanted heart 06/23/2024 [address]phone [facility] [address] [facility] [address] [place] [address] Mandy Reid MD urology (Urology ) 06/10/2024 8:30 AM EST - 06/10/2024 9:30 AM EST Surgery [facility] Cardiac Sow Farm Technician [address] [place] [phone] Mandy Reid MD Left and right heart cath / Coronary angiography 06/10/2024 7:23 AM EST - 06/10/2024 2:07 PM EST Hospital Encounter [facility] Cardiac Sow Farm Technician [address] [place] [phone] Mandy Reid MD Aortic valve stenosis, etiology of cardiac valve disease unspecified; 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; Hairy cell leukemia, in remission ([facility]); Asbestosis ([facility]); Type 2 diabetes mellitus with stage 3 chronic kidney disease, without long-term current use of insulin, unspecified whether stage 3a or 3b CKD ([facility]) Discharge Disposition: Home or Self Care 05/18/2024 Telephone [facility] [address] [place] [address] Mandy Reid MD hospital procedure (Cardiac cath) 05/10/2024 7:40 AM EST Office Visit [facility] [address] [place] [address] Tiffany Chapman NP Aortic valve stenosis, etiology of cardiac valve disease unspecified (Primary Dx); 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; Primary hypertension from [...] Description 08/25/2024 8:00 AM EDT Office Visit [address] [phone] Pippa Marte PA [address] [place] [address] 08/31/2024 12:40 PM EDT Office Visit [facility] [address] [place] [phone] Rocky Hutchinson NP [address] [place] [address] [address] [place] [address] 09/23/2024 8:00 AM EDT Office Visit Adult Medicine [address] [phone] Ne Summers PA [address] [place] [address] 10/15/2024 1:30 PM EDT Ancillary Procedure [facility] [address] [facility] [address] [place] [phone] 10/25/2024 2:10 PM EDT Office Visit [facility] [address] [place] [phone] Rocky Hutchinson NP [address] [place] [address] Dr [address] [place] [address] 01/06/2025 1:00 PM EDT Office Visit Nephrology - [place] [address] [place] [address] Bharath Gonzalez MD [address] [phone] 08/01/2025 8:30 AM EDT Office Visit [facility] Hematology Oncology [address] [place] [phone] Kt Roa MD [address] [place] [address] Health Maintenance Due Date Last Done Comments [...] age to complete this topic Meningococcal B Vaccine Aged Out No l onger eligible based on patient's age to complete [...] type, unspecified whether angina present, unspecified whether campo or transplanted heart LEFT AND RIGHT HEART CATH / CORONARY ANGIOGRAPHY Routine 06/10/2024 10:07 AM EST Aortic valve stenosis, etiology of cardiac valve disease unspecified 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 POCT ARTERIAL CARDIAC [...] GEMUSE QTc 485 ms GEMUSE P Wave Swayzee 28 degrees GEMUSE R Swayzee 88 degrees GEMUSE T Swayzee 75 degrees GEMUSE ECG Interpretation Normal sinus [...] right breast vein access under ultrasonographic evidence. [place]-Margy catheter was used for better catheterization. Findings: [...] surgery evaluation for TAVR. Mandy Reid MD [facility] us Tiffany Chapman NP CV CARDIAC CATH PROCED URES Final Result * POCT Cardiac cath blood gas (06/10/2024 9:58 AM EST) Only the most recent of2 resultswithin the time period is included. pCO2 Cath POCT 50.1 mmHg 06/10/2024 10:00 AM [facility] pO2 Cath POCT 62 mmHg 06/10/2024 10:00 AM [facility] SO2 Cath POCT 90 % 06/10/2024 10:00 AM [facility] Sample Site POCT Aorta 06/10/2024 10:00 AM [facility] Device POCT [id number] 06/10/2024 10:00 AM [facility] FIO2 POCT 21.0 % 06/10/2024 10:00 AM EST [facility] POCT Comment ROOM AIR 06/10/2024 10:00 AM EST [facility] Blood Aortic structure / Unknown 06/10/2024 9:58 AM EST 06/10/2024 10:02 AM EST Mandy Reid MD LAB POINT OF CARE TE ST DOCKED DEVICE UNSOLICITED RESULTS Final Result Performing Organization Address City/[facility] [address]/ZIP Co de Phone Number [facility] [address] [place] [address], [place] [phone] * ECG 12 lead - Procedural (No Charge) (06/10/2024 8:23 AM EST) Ventricular Rate ECG 99 BPM GEMUSE Atrial Rate 99 BPM GEMUSE P-R Interval 146 ms GEMUSE QRS Duration 88 ms GEMUSE Q-T Interval 376 ms GEMUSE QTc 482 ms GEMUSE P Wave [place]wayzee 48 degrees GEMUSE R Swayzee 121 degrees GEMUSE T Swayzee 81 degrees GEMUSE ECG Interpretation Normal sinus [...] LAB COAGULATION METHOD 06/10/2024 8:32 AM EST [facility] INR 1.1 LAB COAGULATION METHOD 06/10/2024 8:32 AM EST [facility] Blood Venous blood specimen / Unknown Venipuncture / Unknown 06/10/2024 8:14 AM EST 06/10/2024 8:20 AM EST us Mandy Reid MD LAB BLOOD ORDERABLES Final Res ult [facility] [address] [place] [address], * CBC (06/10/2024 8:14 AM EST) WBC 5.7 4.8 - 10.8 K/mcL LAB HEMETOLOGY METHOD 06/10/2024 8:23 AM [facility] RBC 5.00 4.50 - 5.50 M/mcL LAB HEMETOLOGY METHOD 06/10/2024 8:23 AM [facility] Hemoglobin 15.4 13.5 - 17.5 g/dL LAB HEMETOLOGY METHOD 06/10/2024 8:23 AM [facility] Hematocrit 46.8 42.0 - 54.0 % LAB HEMETOLOGY METHOD 06/10/2024 8:23 AM [facility] MCV 94.0 79.0 - 98.0 FL LAB HEMETOLOGY METHOD 06/10/2024 8:23 AM [facility] MCH 30.9 27.0 - 32.0 pcg LAB HEMETOLOGY METHOD 06/10/2024 8:23 AM [facility] MCHC 32.9 32.0 - 37.0 g/dL LAB HEMETOLOGY METHOD 06/10/2024 8:23 AM [facility] RDW 13.1 11.0 - 15.0 % LAB HEMETOLOGY METHOD 06/10/2024 8:23 AM [facility] Platelets 172 130 - 400 K/mcL LAB HEMETOLOGY METHOD 06/10/2024 8:23 AM EST [facility] MPV 9.4 7.0 - 11.0 FL LAB HEMETOLOGY METHOD 06/10/2024 8:23 AM EST [facility] NRBC 0.0 <1.0 % LAB HEMETOLOGY METHOD 06/10/2024 8:23 AM EST [facility] NRBC Absolute 0.00 <0.10 K/mcL LAB HEMETOLOGY METHOD 06/10/2024 8:23 AM EST [facility] Blood Venous blood specimen / Unknown Venipuncture / Unknown 06/10/2024 8:14 AM EST 06/10/2024 8:21 AM EST us Mandy Reid MD LAB BLOOD ORDERABLES Final Res ult [facility] [address] [place] [address], * (ABNORMAL) Basic metabolic panel (06/10/2024 8:14 AM EST) Sodium 141 133 - 145 mmol/L LAB CHEMISTRY METHOD 06/10/2024 8:49 AM [facility] Potassium 4.0 3.5 - 5.5 mmol/L LAB CHEMISTRY METHOD 06/10/2024 8:49 AM [facility] Chloride 110 96 - 110 mmol/L LAB CHEMISTRY METHOD 06/10/2024 8:49 AM [facility] CO2 26 21 - 32 mmol/L LAB CHEMISTRY METHOD 06/10/2024 8:49 AM [facility] Anion Gap 5 3 - 11 LAB CHEMISTRY METHOD 06/10/2024 8:49 AM [facility] Glucose 163(H) 70 - 100 mg/dL LAB CHEMISTRY METHOD 06/10/2024 8:49 AM [facility] BUN 18 5 - 25 mg/dL LAB CHEMISTRY METHOD 06/10/2024 8:49 AM [facility] Creatinine 1.24 0.70 - 1.30 mg/dL LAB CHEMISTRY METHOD 06/10/2024 8:49 AM [facility] eGFR 60 >=60 mL/min/1. 73m2 LAB CHEMISTRY METHOD 06/10/2024 8:49 AM [facility] Comment:Calculation based on the??Chronic Kidney Disease Epidemiology Collaboration (CKD-EPI) equation refit??without adjustment for race. BUN/Creatinine Ratio 14.5 LAB CHEMISTRY METHOD 06/10/2024 8:49 AM [facility] Calcium 9.0 8.5 - 10.5 mg/dL LAB CHEMISTRY METHOD 06/10/2024 8:49 AM [facility] Blood Venous blood specimen / Unknown Venipuncture / Unknown 06/10/2024 8:14 AM EST 06/10/2024 8:21 AM EST us Mandy Reid MD LAB BLOOD ORDERABLES Final Res ult [facility] [address] [place] [address], * Lipid panel with reflex to direct LDL (03/23/2024 12:11 PM EST) Cholesterol 133 0 - 200 mg/dL LAB CHEMISTRY METHOD 03/23/2024 2:40 PM [facility] Triglycerides 123 0 - 150 mg/dL LAB CHEMISTRY METHOD 03/23/2024 2:40 PM [facility] HDL 52 >=40 mg/dL LAB CHEMISTRY METHOD 03/23/2024 2:40 PM [facility] LDL Calculated 56 0 - 100 mg/dL LAB CHEMISTRY METHOD 03/23/2024 2:40 PM [facility] VLDL Cholesterol Brad 24.6 mg/dL LAB CHEMISTRY METHOD 03/23/2024 2:40 PM EST [facility] Non HDL Chol. (LDL+VLDL) 81 <145 mg/dL LAB CHEMISTRY METHOD 03/23/2024 2:40 PM EST [facility] Chol/HDL Ratio 2.6 0.0 - 4.4 LAB CHEMISTRY METHOD 03/23/2024 2:40 PM EST [facility] Blood Venous blood specimen / Unknown Venipuncture / Unknown 03/23/2024 12:11 PM EST 03/23/2024 12:11 PM EST us Sharri Mills MD LAB BLOOD ORDERABLES Final Resul t [facility] [address] [place] [address], [place] [phone] * (ABNORMAL) Microalbumin creatinine urine ratio (03/16/2024 8:40 AM EST) Creatinine, Urine 235.0 mg/dL LAB CHEMISTRY METHOD 03/16/2024 11:01 AM [facility] Microalb, Ur 790.0(H) 0.0 - 29.0 mg/L LAB CHEMISTRY METHOD 03/16/2024 11:01 AM [facility] Microalb/Crea t Ratio 336(H) <30 mg/g creat LAB CHEMISTRY METHOD 03/16/2024 11:01 AM EST [facility] Urine Urine specimen obtained by clean catch procedure / Unknown Non-blood Collection / Unknown 03/16/2024 8:40 AM EST 03/16/2024 8:40 AM EST us Bharath Gonzalez MD LAB URINE ORDERABLES Final Res ult [facility] [address] [place] [address], [place] [phone] * Hemoglobin A1c (03/16/2024 8:40 AM EST) Hemoglobin A1C 5.2 <6.5 % LAB CHEMISTRY METHOD 03/16/2024 10:34 PM EST [facility] Mean Bld Glu Estim. 103 mg/dL LAB CHEMISTRY METHOD 03/16/2024 10:34 PM EST [facility] Blood Venous blood specimen / Unknown Venipuncture / Unknown 03/16/2024 8:40 AM EST 03/16/2024 8:40 AM EST us Pippa BLANTON LAB BLOOD ORDERABLES Final Resul t [facility] [address] [place] [address], * CT LUNG SCREENING LOW DOSE (01/09/2022 3:31 PM EDT) Anatomical Region Laterality Modality Computed Tomogra phy 01/09/2022 9:31 AM EDT Narrative 01/09/2022 3:31 PM EDT [facility] Diagnostic Imaging Department [address] [place] [address] Patient: ??BILLIE BALDERAS ?/Age/Sex: 1945 - 76 - M Unit#: ??[id number] ? Location/Status: ??SPDICATLS/REG CLI ? Mnemonic/Ordering Site: ??CTLUNGLD/SPCT Ordering Physician: ??ISAIAS MARTIN MD CT Lung Screening Low Dose - 01/09/22 - 937 Indication: 120 pack-year smoking history (2pack/day for 60 years), current smoker Technique: Low-dose CT scan of the chest obtained as a lung cancer screening study. Multiplanar reformatted images were obtained. Scanner: [place] Dose reduction technique: ASIR (Adaptive statistical iterative [...] Procedure Note Otto Hopper MD - 04/17/2022 [facility] Diagnostic Imaging Department [address] [place] [id number] Patient: BILLIE BALDERAS Jessie Carpenter/Age/Sex: 1945 - 76 - M Unit#: [id number] Location/Status: SPDICATLS/REG CLI Mnemonic/Ordering Site: [facility] Ordering Physician: ISAIAS MARTIN MD CT Lung Screening Low Dose - 01/09/22 - 937 Indication: 120 pack-year smoking history (2pack/day for 60 years),current smoker Technique: Low-dose CT scan of the chest obtained as a lung cancerscreening study. Multiplanar reformatted images were obtained. Scanner: [place] Dose reduction technique: ASIR (Adaptive statistical iterativereconstruction) [...] in the right lower lobe also noted ([id number]). No interval development of suspicious pulmonary nodule. [...] Recently Relevant to Health Maintenance Insurance MEDICARE [facility] Care Teams Merchandise Pickup/Receiving Associate Relationship Specialty Start Date End Date Sharri Mills MD [address] [place] [address] PCP - General 11/23/01
--- OUTSIDE RECORDS SUMMARY | 2024-08-04 03:30 | XMS_ITS ---
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 Past Plans No past plan information found. Radiation Treatments * No radiation treatments are documented for this patient in [facility]. Treatments may have been administered in another system. Lifetime Dose Tracking * Chemical Lifetime Dose Automatic Entry Manual Entr y Radiation 536 mGy 0 mGy 536 mGy Fluoro Time 4.7 minutes 0 minutes 4.7 minutes Resolved Problems Problem Noted Date Diagnosed Date Resolved Date Alcohol use disorder, severe, dependence 06/30/2019 03/22/2024
--- OUTSIDE RECORDS SUMMARY | 2024-08-04 03:30 | XMS_ITS | Encounter Summary ---
Author Organization [facility] Address [address] [place] [address] Care Team Providers Care Steward/Stewardess Second Class Name Role Phone Sharri Mills MD Primary Care Provider [phone] Reason for Visit * Reason Onset Date Comments pt needs labs before 10/25/24 TAVR f/u visit with [facility] 07/29/2024 Encounter Details Date Type Department Care Team (Late st Contact Info) Description 07/29/2024 Telephone [facility] [place] [address] [place] [address] Mandy Hernandez MD [address] [place] [address] Dr [address] [place] [address] pt needs labs before 10/25/24 TAVR f/u visit with [facility] Social History Tobacco Use Types Packs/Day Years [...] 8:00 AM EDT Office Visit Endocrinology [address] [phone] Pippa Marte PA [address] [place] [address] 08/31/2024 12:40 PM EDT Office Visit [facility] [address] [place] [address] Rocky Hutchinson NP [address] [place] [address] Dr [address] [place] [address] 09/23/2024 8:00 AM EDT Office Visit Adult Medicine South - [address] [phone] Ne Summers PA [address] [place] [address] 10/15/2024 1:30 PM EDT Ancillary Procedure [facility] [address] [facility] [address] [place] [address] 10/25/2024 2:10 PM EDT Office Visit [facility] [address] [place] [address] Rocky Hutchinson NP [address] [place] [address] Dr [address] [place] [address] 01/06/2025 1:00 PM EDT Office Visit Nephrology - [address] [phone] Bharath Gonzalez MD [address] [phone] 08/01/2025 8:30 AM EDT Office Visit [facility] Hematology Oncology [address] [place] [phone] Kt Roa MD [address] [place] [address] documented as of this encounter Visit Diagnoses Not on filedocumented in this encounter Additional Health Concerns Assessment Noted Time PHQ-9 Depression Total Score: 0 03/19/20 1:17 PM EST A fall risk assessment has been complete d for the patient 03/19/2024 1:13 PM EST documented as of this encounter Care Teams Steward/Stewardess Second Class Relationship Specialty Start Date End Date Sharri Mills MD [address] [place] [address] PCP - General 11/23/01 documented as of this encounter
--- OUTSIDE RECORDS SUMMARY | 2024-08-04 03:30 | XMS_ITS | Clinical Summary ---
Author Organization [facility] Address [address] [place] [address] Care Team Providers Care Marker Assembler Name Role Phone Sharri Mills MD Primary Care Provider [phone] Allergies No known active allergies Medications Medication [...] Hepatitis C Screening 1945 COVID-19 Vaccine (#1) 02/13/1946 Depression Screening 1957 Preventative Health Evaluation 08/15/1963 [...] age to complete this topic Care Teams Marker Assembler Relationship Specialty Start Date End Date Sharri Mills MD PCP - General Internal Medicine 07/09/19
[2024-08-04 03:31] LABS: Basophils Percent Auto 0.5 % (0-2); Eosinophils Absolute Auto 0.2 X10*3/uL (0.0-0.4); Eosinophils Percent Auto 2.1 % (0-4); Hematocrit 39.1 % (42.0-52.0); Hemoglobin 12.8 g/dl (14.0-18.0); Imm Gran Abs Auto 0.02 X10*3/uL (0.00-0.03); Imm Gran Pct Auto 0.3 % (0.0-0.4); Lymphocytes Absolute Auto 1.1 X10*3/uL (1.2-4.9); Lymphocytes Percent Auto 14.7 % (20-40); MANUAL DIFF FLAG SCAN; Mean Corpuscular HGB Conc 32.7 g/dl (31.0-36.0); Mean Corpuscular Hemoglobin 29.2 pg (27.0-33.0); Mean Corpuscular Volume 89.1 fL (80.0-98.0); Mean Platelet Volume 9.4 fL (9.4-12.4); Monocytes Absolute Auto 0.8 X10*3/uL (0.1-1.2); Monocytes Percent Auto 10.8 % (2-11); Neutrophils Absolute Auto 5.5 x10*3/uL (2.0-8.3); Neutrophils Percent Auto 71.6 % (45-73); Platelet Count 251 X10*3/uL (160-400); Red Blood Count 4.39 X10*6/uL (4.60-5.80); Red Cell Distribution Width 13.4 % (11.0-16.0); SCAN SMEAR FLAG 1; White Blood Count 7.7 X10*3/uL (4.8-10.8)
[2024-08-04 03:52] LABS: Alanine Aminotransferase 30 U/L (0-40); Albumin Level 3.3 g/dL (3.5-5.0); Alkaline Phosphatase 105 U/L (39-117); Anion Gap 16 (12-20); Aspartate Amino Transferase 43 U/L (5-37); Bilirubin Total 0.8 mg/dL (0.0-1.0); Blood Urea Nitrogen 21 mg/dL (9-16); Calcium 8.8 mg/dL (8.4-10.2); Carbon Dioxide 20 mmol/L (22-29); Chloride 104 mmol/L (96-108); Creatinine Clr Calc Pharmacy 45.8; Estimated Glomerular Filt Rate 49; Glucose Random 126 mg/dL (60-115); Potassium 3.9 mmol/L (3.3-5.1); Sodium 136 mmol/L (135-145); Total Protein 7.1 g/dL (6.5-8.0)
[2024-08-04 03:56] LABS: SLIDE REVIEW VERIFIED
[2024-08-04 04:06] LABS: Appearance Urine Clear; Color Urine Orange; Glucose Urine UA Negative (Negative); Leukocyte Esterase Urine Small (1+) (Negative); Nitrite Urine Positive (Negative); UMIC TRIGGER UACC YES; Urine Blood Moderate (2+) (Negative); Urine Ketones Negative (Negative); Urine Protein 100 (2+) mg/dL (Neg-Trace)
[2024-08-04 04:33] LABS: Bacteria Urine None Seen (None Seen); Hyaline Casts Urine 0-2 /LPF (0-2); RBC Urine >20 /HPF (0-2); Squamous Epithelial Cell Urine 0-2 /HPF (0-2); UACC Culture Trigger YES
--- NOTE | 2024-08-04 04:37 | ED.MALEGU ---
HPI - Male Genitourinary General Chief complaint: Urogenital-Male Stated complaint: UTI Time Seen by Provider: 08/04/24 04:04 Source: patient and family Mode of arrival: ambulatory Limitations: no limitations History of Present Illness ED Provider: DR. Potter HPI Narrative: 78-year-old male presented with urinary retention since 15;00 had similar presentation in the past require Salinas catheter, patient follow-up with urologist patient was placed on Pyridium now with orange urine, and Bactrim last dose is due today. Patient is scheduled to have open heart surgery for valve replacement on August 16 and will require urology clearance before surgery. Related Data Home Medications ?Medication ?Instructions ?Recorded ?Confirmed dulaglutide 3 mg/0.5 mL mg subcut 07/14/24 subcutaneous pen injector ([place]) insulin glargine 100 unit/mL (3 unit subcut 07/14/24 mL) subcutaneous pen (Basaglar KwikPen U-100 Insulin) isosorbide mononitrate 30 mg mg PO 07/14/24 tablet,extended release 24 hr lisinopril 20 mg tablet 20 mg PO DAILY 07/14/24 omeprazole 20 mg capsule,delayed 20 mg PO DAILY 07/14/24 release pravastatin 40 mg tablet 40 mg PO DAILY 07/14/24 albuterol sulfate inhalation 07/26/24 aspirin 81 mg tablet,delayed 81 mg PO DAILY 07/26/24 release metformin 500 mg tablet 500 mg PO BID 07/26/24 metoprolol tartrate 50 mg tablet 50 mg PO BID 07/26/24 nitroglycerin 0.4 mg sublingual 0.4 mg sublingual Q5M PRN 07/26/24 tablet Previous Rx's ?Medication ?Instructions ?Recorded tamsulosin 0.4 mg capsule 0.4 mg PO DAILY 90 days #90 caps 07/26/24 sulfamethoxazole 800 1 tab PO BID 7 days #14 tabs 07/29/24 mg-trimethoprim 160 mg tablet (Bactrim DS) phenazopyridine 100 mg tablet 100 mg PO Q8H PRN Pain 6 days #12 08/01/24 tabs cefuroxime axetil 250 mg tablet 250 mg PO BID #14 tabs 08/04/24 Allergies Allergy/AdvReac Type Severity Reaction Status Date / Time No Known Allergies Allergy Verified 08/04/24 03:06 Review of Systems Review of Systems: All other systems are reviewed and are negative Constitutional: Reports as per HPI and Reports no additional constitutional complaints Eyes: Reports as per HPI and Reports no additional eye complaints Reports system reviewed and no additional complaints, except as documented Cardiovascular: Reports as per HPI and Reports no additional cardiovascular complaints Respiratory: Reports as per HPI and Reports no additional respiratory complaints Gastrointestinal: Reports as per HPI and Reports no additional gastrointestinal complaints Genitourinary: Reports no additional female genitourinary complaints Musculoskeletal: Reports no additional musculoskeletal complaints Skin/Breast: Reports system reviewed and no additional complaints, except as docu Psychiatric: Reports no additional psychiatric complaints Endocrine: Reports no additional endocrine complaints Hematologic/Lymphatic: Reports no additional hematologic/lymphatic complaints Allergic/Immunologic: Reports no additional allergic/immunologic complaints Reports system reviewed and no additional complaints, except as documented and Reports Abnormal speech present [facility] Past Medical History Medical History Meningitis Asbestosis Hearing loss Hypercholesteremia Old myocardial infarction Allergic rhinitis Hypertension Prostatism 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 Generalized anxiety disorder COPD (chronic obstructive pulmonary disease) with emphysema Alcohol use disorder Pulmonary nodules Hairy cell leukemia Splenomegaly Aortic stenosis CAD (coronary artery disease) Nocturnal hypoxemia due to emphysema Obstructive sleep apnea (adult) (pediatric) Class 2 severe obesity with serious comorbidity and body mass index (BMI) of 35.0 to 35.9 in adult Surgical History History of coronary angioplasty with insertion of stent Social History Social History Smoked in Last 30 Days: No Use of substances other than those prescribed or required for medical reasons: No Advance Directives: No Do you have a plan to hurt others: No Plan Physical Exam Vital Signs: Vital Signs: Last Vital Signs Temp 97.6 F 08/04/24 03:01 Pulse 102 H 08/04/24 03:01 Resp 18 08/04/24 03:01 BP 128/67 08/04/24 03:01 Pulse Ox 95 08/04/24 03:01 O2 Del Method Room Air 08/04/24 03:01 BMI result Body Mass Index 32.3 Vital signs have been reviewed and appear to be correct. Blood pressure elevated. Heart rate normal. Respiratory rate normal. Temperature normal. Oxygen saturation normal. Appearance: Alert. Oriented X3. No acute distress. Head: Normal external exam. Normocephalic. Atraumatic. No Pete signs noted. No raccoon eyes noted Eyes: PERRLA. EOMI. Conjunctiva and sclera normal. Eyelids normal. ENT: TM's Normal. Pharynx normal. Uvula midline. Moist mucous membranes. No trismus noted. No drooling noted. No muffled voice noted. Neck: Normal inspection. Neck supple. FROM. No adenopathy. Thyroid Normal. No meningeal signs. No neck mass noted. CVS: Normal heart rate and rhythm. Heart sound normal. No murmurs noted. Pulses normal throughout. Respiratory: No respiratory distress. Painless inspiration. Breath sounds normal. No wheezes/rales/rhonchi noted. Chest nontender. No accessory muscle usage noted or decreased air movement noted. Abdomen: Suprapubic distention with tenderness, no guarding, no rebound tenderness. Bowel sounds normal in all 4 quadrants. No distention noted. No organomegaly noted. No visible injury noted. Back: No CVA tenderness. Full range of motion noted. Skin: Skin warm and dry. Normal skin color. Normal skin turgor. No rashes/lesions/lacerations noted. Extremities: No lower extremity edema. Extremities exhibit normal range of motion. Extremities nontender. Neuro: Oriented X 3. Cranial nerve exam: II-XII are grossly intact No motor deficit. No sensory deficit. Reflexes normal. Course Reevaluation(s) Reevaluation #1: Postvoid bladder scan showed by 50 cc urine, Salinas catheter was placed in the ED patient drained 600 cc of orange color urine (patient is taking Pyridium) patient currently on Bactrim last dose is due today, UA reveals UTI will stop Bactrim and start on Ceftin. Patient need to follow-up Dr. Yeboah to get urology clearance before his open heart surgery on August 16. Time: 04:43 Medical Decision Making Differential Diagnosis Differential Diagnoses: The differential diagnosis associated with the presentation includes (Enlarged prostate, urinary retention, UTI, electrolyte derangement, severe anemia.) Admission/Observation Consideration of admission/observation: Escalation of care including admission/observation considered Lab Data [facility] Lab Attestation statement: I reviewed the patient's lab results. 08/04/24 03:21 08/04/24 03:21 Labs: Lab Results 08/04/24 08/04/24 Range/Units 03:21 03:53 WBC 7.7 (4.8-10.8) X10*3/uL RBC 4.39 L (4.60-5.80) X10*6/uL Hgb 12.8 L (14.0-18.0) g/dl Hct 39.1 L (42.0-52.0) % MCV 89.1 (80.0-98.0) fL MCH 29.2 (27.0-33.0) pg MCHC 32.7 (31.0-36.0) g/dl RDW 13.4 (11.0-16.0) % Plt Count 251 D (160-400) X10*3/uL MPV 9.4 (9.4-12.4) fL Immature Gran % (Auto) 0.3 (0.0-0.4) % Neut % (Auto) 71.6 (45-73) % Lymph % (Auto) 14.7 L (20-40) % [place] % (Auto) 10.8 (2-11) % Eos % (Auto) 2.1 (0-4) % Baso % (Auto) 0.5 (0-2) % Lymph # (Auto) 1.1 L (1.2-4.9) X10*3/uL [place] # (Auto) 0.8 (0.1-1.2) X10*3/uL Eos # (Auto) 0.2 (0.0-0.4) X10*3/uL Baso # (Auto) 0.0 (0.0-0.2) X10*3/uL Abs Immat Gran (auto) 0.02 (0.00-0.03) X10*3/uL Absolute Neuts (auto) 5.5 (2.0-8.3) x10*3/uL Absolute Nucleated RBC 0.000 (0.0-0.012) X10*3/uL Nucleated RBC % (auto) 0.0 (0.0-0.2) /100WBC Smear Tech's Comments VERIFIED Sodium 136 (135-145) mmol/L Potassium 3.9 (3.3-5.1) mmol/L Chloride 104 (96-108) mmol/L Carbon Dioxide 20 L (22-29) mmol/L Anion Gap 16 (12-20) BUN 21 H (9-16) mg/dL Creatinine 1.40 (0.5-1.4) mg/dL Estim Creat Clear Calc 45.8 Estimated GFR 49 Random Glucose 126 H (60-115) mg/dL Calcium 8.8 D (8.4-10.2) mg/dL Total Bilirubin 0.8 (0.0-1.0) mg/dL AST 43 H (5-37) U/L ALT 30 (0-40) U/L Alkaline Phosphatase 105 (39-117) U/L Total Protein 7.1 (6.5-8.0) g/dL Albumin 3.3 L (3.5-5.0) g/dL Urine Color [place] A Urine Appearance Clear Urine pH 6.0 (5.0-9.0) Ur Specific [place] 1.020 (1.005-1.025) Urine Protein 100 (2+) H (Neg-Trace) mg/dL Urine Glucose (UA) Negative (Negative) mg/dL Urine Ketones Negative (Negative) mg/dL Urine Blood Moderate (2+) H (Negative) Urine Nitrite Positive H (Negative) Ur Leukocyte Esterase Small (1+) H (Negative) Urine RBC >20 H (0-2) /HPF Urine WBC 6-10 H (0-5) /HPF Ur Squamous Epith Cells 0-2 (0-2) /HPF Urine Bacteria None Seen (None Seen) Hyaline Casts 0-2 (0-2) /LPF Discharge Plan Discharge Clinical Impression: Urinary retention, Urinary tract infection Patient Disposition: Home, Self-Care Instructions: [place] Catheter Placement and Care (ED) Prescriptions: New cefuroxime axetil 250 mg tablet 250 mg PO BID Qty: 14 0RF No Action phenazopyridine 100 mg tablet 100 mg PO Q8H PRN (Reason: Pain) 6 Days Qty: 12 0RF omeprazole 20 mg capsule,delayed release(DR/EC) 20 mg PO DAILY lisinopril 20 mg tablet 20 mg PO DAILY pravastatin 40 mg tablet 40 mg PO DAILY Trulicity 3 mg/0.5 mL pen injector subcut insulin glargine [Donte VillarealikPen U-100 Insulin] 100 unit/mL (3 mL) insulin pen subcut isosorbide mononitrate 30 mg tablet extended release 24 hr PO metformin 500 mg tablet 500 mg PO BID aspirin 81 mg tablet,delayed release (DR/EC) 81 mg PO DAILY metoprolol tartrate 50 mg tablet 50 mg PO BID albuterol sulfate inhalation nitroglycerin 0.4 mg tablet, sublingual 0.4 mg sublingual Q5M PRN Rx Instructions: do not exceed 3 doses per episode tamsulosin 0.4 mg capsule 0.4 mg PO DAILY 90 Days Qty: 90 1RF sulfamethoxazole-trimethoprim [Bactrim DS] 800-160 mg tablet 1 tab PO BID 7 Days Qty: 14 0RF Referrals: Shaun Yeboah MD [Physician] - Sharri Mills MD [Primary Care Provider] - Print Language: Maori
[2024-08-04] MEDS: cefuroxime axetiL 250 MG TABLET PO (04:51)
[2024-08-04 04:55] VITALS: BP 118/62; PULSE 97; RESP 18; O2SAT 98
[2024-08-04 05:11] VITALS: BP 118/62; PULSE 97; RESP 18; TEMP 36.4; O2SAT 98
== END 2024-08-04 05:13 | disposition home or self-care (01) ==
PROVIDERS: Emergency Provider Emergency Medicine; PCP Internal Medicine
DX: N39.0 Urinary tract infection, site not specified (principal); R33.9 Retention of urine, unspecified; Z79.899 Other long term (current) drug therapy
CPT/HCPCS: 36415; 51702; 51798; 80053; 81001; 85025; 87086; 99283; 99285

== ENCOUNTER → 2024-08-05 14:58 | Outpatient (BNVA) | payer MEDICARE, OTHER, SELFPAY | PROVIDERS: PCP Internal Medicine; Visit Provider Nurse Practitioner Family | DX: Z13.89 Encounter for screening for other disorder (principal) ==

== ENCOUNTER → 2024-09-01 08:55 | Outpatient (BNVA) | payer MEDICARE, OTHER, SELFPAY | PROVIDERS: PCP Internal Medicine; Visit Provider Nurse Practitioner Family | DX: R33.9 Retention of urine, unspecified (principal) | CPT/HCPCS: 51700; 51798 ==

== ENCOUNTER 2024-09-28 10:00 | Outpatient (REF) | payer MEDICARE, OTHER, SELFPAY ==
--- NOTE | ~2024-09-28 | US_ITS ---
CLINICAL HISTORY: R33.9 - Retention of urine, unspecified Ultrasound kidneys. COMPARISON: None Technique: Real time sonographic imaging, including color-flow imaging, was performed by the diesel inspector. Multiple medicare sales representative static images were saved for review. FINDINGS: Right kidney: Cortical medullary differentiation is maintained. Normal color flow by Doppler. No calculus or focal parenchymal abnormality identified. No hydronephrosis. Right kidney size: 10.8 x 4.6 x 5.1 cm Left kidney: Cortical medullary differentiation is maintained. Normal color flow by Doppler. No calculus or focal parenchymal abnormality identified. No hydronephrosis. Left kidney size: 10.8 x 5.3 x 5.6 cm The urinary bladder is unremarkable. Bilateral ureteral jets visualized. Prevoid volume: 125 mL Postvoid volume: 63 mL, within normal limits Prostate is enlarged measuring 7.3 x 6.5 x 5.6 cm. IMPRESSION: 1. No evidence of renal obstruction. No renal or ureteral calculus bilaterally. 2. Prostatomegaly. Urinary bladder postvoid residual volume is within normal limits. This document has been electronically signed by: Bryant Garcia MD on 09/28/2024 14:51:22
--- OUTSIDE RECORDS SUMMARY | 2024-09-28 11:27 | XMS_ITS ---
Author Organization [facility] Address [address] [place] [address] Phone Care Team Providers Care Sewer Tapper Name Role Phone Sharri Mills MD Primary Care Provider [phone] Active Problems Problem Noted Date Diagnosed Date 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[facility] V24, [facility] V28) 1 05/22/2023 Assessment & Plan (03/23/2024 11:52 AM EST): Splenomegaly 03/22/2024 Obstructive sleep apnea 07/20/2021 Overview (03/22/2024): [facility] Home sleep test 07/10/2021; weight 225; BMI [...] oxygen during night. 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 Hernandez at [facility]; post development the patient developed a new LBBB; he was discharged on aspirin monotherapy and Zio patch Assessment & Plan (08/31/2024 2:34 PM EDT): Successful TAVR using 26 mm YANETH 3 Bioprosthetic valve on 08/16/24. Developed LBBB and now on Zio patch. The patient is having no clear symptomatic improvement per his report, but his sees his breathing and color ar better. His valve is working well on exam and by symptoms. Instructed him about the need for prophylactic antibiotics prior to dental work. He is scheduled for a one month TAVR echocardiogram and then one month TAVR follow up. Assessment & Plan (08/31/2024 1:59 PM EDT): >>ASSESSMENT AND PLAN FOR AORTIC STENOSIS WRITTEN ON 05/10/2024 10:38 AM BY CATRACHITO MOTLEY NP The patient appears euvolemic upon exam today. [...] scan in 6 months COPD with emphysema ([facility] V24, [facility] V28) 0 06/25/2019 Overview (03/22/2024): Patient has been heavy smoker until 2018. 120PPD. Sees thoracic surgery for lung cancer screen. Generalized anxiety disorder 03/27/2015 Type 2 diabetes mellitus wit h renal complication ([facility] V24, [facility] V28) 12/01/2013 Assessment & Plan (03/23/2024 11:52 AM EST): Orders: Trulicity 3 mg/0.5 mL pen injector injection; Inject 0.5 mL (3 mg total) under the skin 1 (one) time per week. Type II diabetes mellitus wi th ophthalmic manifestations ([facility] V24, [facility] V28) 12/01/2013 Overview (03/22/2024): NS noted on eye exam 12/13/11. Microalbuminuria 06/26/2012 Prostatism 05/02/2010 Hypertension 04/15/2007 Assessment & Plan (08/31/2024 2:34 PM EDT): Controlled. Continue with lisinopril, isosorbide and metoprolol. Assessment & Plan (05/10/2024 10:38 AM EST): Mildly elevated during today's exam with a reading of 144/76. Educated on the importance of diet lifestyle to help further assist in reducing blood pressure. The patient was encouraged to follow low-salt low-fat diet, make purposeful strides towards weight loss, and engage in routine aerobic exercise as tolerated. Assessment & Plan (03/23/2024 11:52 AM EST): CAD (coronary artery disease) 07/07/2005 Overview (08/31/2024): 2001 - angiogram in setting of inferior wall OH with stenting of OM March 30, 2020 catheterization revealing normal left main, proximal LAD 30%, left circumflex prior proximal stent patent, proximal RCA 30% lesion with moderate aortic stenosis and 29 mm gradient between the LV and aorta. 06/10/24 CARDIAC PROCEDURE 06/11/2024 06/10/2024 Conclusion Outpatient TAVR evaluation with CT scan TAVR protocol and cardiothoracic surgery evaluation. Continue medical management for coronary artery disease. Signed by: Mandy Hernandez MD on 06/11/2024 10:12 AM Assessment & Plan (08/31/2024 2:34 PM EDT): Catheterization from 2024 showed patent stent with no other significant disease elsewhere. Echocardiogram from 2023 showed preserved LV systolic function. No anginal symptoms. Continue with aspirin, pravastatin, lisinopril, metoprolol and isosorbide. We discussed risk reduction through lifestyle choices including healthy diet, routine exercise and weight management. Assessment & Plan (05/10/2024 10:38 AM EST): [...] 07/07/2005 Overview (03/22/2024): 1966 O update Asbestosis ([facility] V24, [facility] V28) 07/07/2005 Overview (03/22/2024): pleural plaques Allergic rhinitis 07/07/2005 Hearing loss 07/07/2005 Overview (03/22/2024): O update Hypercholesterolemia 07/07/2005 Assessment & Plan (08/31/2024 2:34 PM EDT): June 2023 - LDL of 155. Continue with pravastatin. Assessment & Plan (03/23/2024 11:52 AM EST): Orders: Lipid panel with reflex to direct LDL; Future Current Oncology Plans No current plan information found. Past Plans No past plan information found. Radiation Treatments * No radiation treatments are documented for this patient in [facility]. Treatments may have been administered in another system. Lifetime Dose Tracking * Chemical Lifetime Dose Automatic Entry Manual Entr y Radiation 536 mGy 0 mGy 536 mGy Fluoro Time 4.7 minutes 0 minutes 4.7 minutes Resolved Problems Problem Noted Date Diagnosed Date Resolved Date Alcohol use disorder, severe , dependence ([facility] V24, [facility] V28) 06/30/2019 03/22/2024
== END 2024-09-28 10:01 | disposition home or self-care (01) ==
LOC: HO.US 10:00
PROVIDERS: PCP Internal Medicine; Visit Provider Nurse Practitioner Family
DX: R33.9 Retention of urine, unspecified (principal)
CPT/HCPCS: 76770

== ENCOUNTER → 2024-09-28 10:03 | Outpatient (BNV) | payer MEDICARE, OTHER, SELFPAY | PROVIDERS: PCP Internal Medicine; Visit Provider Radiology Diagnostic Radiology | DX: N40.0 Benign prostatic hyperplasia without lower urinary tract symptoms (principal) | CPT/HCPCS: 76770 ==

== ENCOUNTER 2024-10-09 19:43 | Emergency (ER) | payer MEDICARE, OTHER, SELFPAY ==
--- NOTE | 2024-10-09 19:55 | ED.GENADULT ---
HPI - General Adult General Chief complaint: Urogenital-Male Stated complaint: trouble urinating hx of it Time Seen by Provider: 10/09/24 21:38 Source: patient Mode of arrival: ambulatory Limitations: no limitations History of Present Illness ED Provider: HPI narrative: Patient with BPH with urinary retention with frequent catheterization last catheterization was in 08/04/2024 which was removed few weeks ago patient has been having difficulty in urination to dribbling getting worse today no fever no chills Related Data Home Medications ?Medication ?Instructions ?Recorded ?Confirmed dulaglutide 3 mg/0.5 mL mg subcut 07/14/24 subcutaneous pen injector (EPV SOLARity) insulin glargine 100 unit/mL (3 unit subcut 07/14/24 mL) subcutaneous pen (Basaglar KwikPen U-100 Insulin) isosorbide mononitrate 30 mg mg PO 07/14/24 tablet,extended release 24 hr lisinopril 20 mg tablet 20 mg PO DAILY 07/14/24 omeprazole 20 mg capsule,delayed 20 mg PO DAILY 07/14/24 release pravastatin 40 mg tablet 40 mg PO DAILY 07/14/24 albuterol sulfate inhalation 07/26/24 aspirin 81 mg tablet,delayed 81 mg PO DAILY 07/26/24 release metformin 500 mg tablet 500 mg PO BID 07/26/24 metoprolol tartrate 50 mg tablet 50 mg PO BID 07/26/24 nitroglycerin 0.4 mg sublingual 0.4 mg sublingual Q5M PRN 07/26/24 tablet Previous Rx's ?Medication ?Instructions ?Recorded sulfamethoxazole 800 1 tab PO BID 7 days #14 tabs 07/29/24 mg-trimethoprim 160 mg tablet (Bactrim DS) phenazopyridine 100 mg tablet 100 mg PO Q8H PRN Pain 6 days #12 08/01/24 tabs cefuroxime axetil 250 mg tablet 250 mg PO BID #14 tabs 08/04/24 tamsulosin 0.4 mg capsule 0.8 mg (2 x 0.4 mg) PO DAILY 90 09/01/24 days #180 caps finasteride 5 mg tablet 5 mg PO DAILY #30 tabs 09/02/24 levofloxacin 500 mg tablet 500 mg PO DAILY 7 days #7 tabs 10/09/24 Allergies Allergy/AdvReac Type Severity Reaction Status Date / Time No Known Allergies Allergy Verified 10/09/24 19:58 Review of Systems Review of Systems: Yes all other systems are reviewed and are negative [facility] Past Medical History Medical History Meningitis Asbestosis Hearing loss Hypercholesteremia Old myocardial infarction Allergic rhinitis Hypertension Prostatism 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 Generalized anxiety disorder COPD (chronic obstructive pulmonary disease) with emphysema Alcohol use disorder Pulmonary nodules Hairy cell leukemia Splenomegaly Aortic stenosis CAD (coronary artery disease) Nocturnal hypoxemia due to emphysema Obstructive sleep apnea (adult) (pediatric) Class 2 severe obesity with serious comorbidity and body mass index (BMI) of 35.0 to 35.9 in adult Surgical History History of coronary angioplasty with insertion of stent Social History Social History Alcohol intake: current Alcohol intake frequency: does not drink Smoked in Last 30 Days: Yes Use of substances other than those prescribed or required for medical reasons: No Advance Directives: No Advance Directives Information Provided: Yes Physical Exam ED Vital Signs: Vital Signs - 24 hr 10/09/24 19:56 10/09/24 20:37 10/09/24 23:02 Temperature 97.8 F 96.8 F 97.6 F Pulse Rate 109 H 108 H 98 Respiratory Rate 20 18 18 Blood Pressure 162/69 H 159/70 H 107/66 Pulse Oximetry 97 95 98 Oxygen Delivery Method Room Air Room Air Room Air 10/09/24 23:32 Temperature 97.6 F Pulse Rate 98 Respiratory Rate 18 Blood Pressure 107/66 Pulse Oximetry 98 Oxygen Delivery Method Room Air BMI result Body Mass Index 32.4 Appearance: Alert. Oriented X3. No acute distress. Eyes: PERRLA, No Nystagmus ENT: Pharynx normal. Oral Mucosa moist Neck: Normal inspection. Neck supple. CVS: Normal heart rate and rhythm. Pulses normal. Respiratory: No respiratory distress. Equal air entry bilateral, no wheezing/rales/rhonchi Abdomen: Soft and fullness suprapubic area. Bowel sounds are present, no mass palpable, no CVA tenderness Skin: Skin warm and dry. Normal skin color. Normal skin turgor. Extremities: No lower extremity edema. No calf tenderness Neuro: Oriented X 3. No motor deficit. No sensory deficit.No cerebellar signs , cranial nerves II-XII intact Course Course Course Narrative: This is a rapid medical exam performed by Faiza Paz NP: Additional HPI, ROS, PE not included below will be deferred to primary provider. Patient is a 79-year-old male presenting with complaint of progressively worsening urinary retention, worst today. States only getting out dribbles. Denies fevers/chills. Slightly tachycardic. Plan: bladder scan, UA, labs Medications Administered Discontinued Medications Generic Name Dose Route Start Last Admin Trade Name Freq PRN Reason Stop Dose Admin Levofloxacin 500 mg 10/09/24 22:51 10/09/24 23:11 Levofloxacin 500 Mg Tablet PO 10/09/24 22:52 500 mg ONCE ONE Administration Lidocaine HCl 10 ml 10/09/24 21:58 10/09/24 22:08 Lidocaine Hcl 2 % Urojet 10 Ml Jel.Pf.Kip TOPICAL 10/09/24 21:59 10 ml ONCE ONE Administration Medical Decision Making Medical Decision Making [facility] Narrative: Bladder scan showed more than 400 cc urine blood [place] catheter was placed patient is feeling better UA showed increased WBC count likely the cause for the increased urinary retention will prescribe Levaquin Lab Data [facility] Lab Attestation statement: I reviewed the patient's lab results. 10/09/24 20:27 10/09/24 20:27 Labs: Lab Results 10/09/24 Range/Units 20:27 WBC 3.8 L (4.8-10.8) X10*3/uL RBC 4.26 L (4.60-5.80) X10*6/uL Hgb 12.7 L (14.0-18.0) g/dl Hct 37.4 L (42.0-52.0) % MCV 87.8 (80.0-98.0) fL MCH 29.8 (27.0-33.0) pg MCHC 34.0 (31.0-36.0) g/dl RDW 15.7 (11.0-16.0) % Plt Count 110 L D (160-400) X10*3/uL MPV 9.0 L (9.4-12.4) fL Immature Gran % (Auto) 0.3 (0.0-0.4) % Neut % (Auto) 57.3 (45-73) % Lymph % (Auto) 25.9 (20-40) % [place] % (Auto) 10.6 (2-11) % Eos % (Auto) 4.8 H (0-4) % Baso % (Auto) 1.1 (0-2) % Lymph # (Auto) 1.0 L (1.2-4.9) X10*3/uL [place] # (Auto) 0.4 (0.1-1.2) X10*3/uL Eos # (Auto) 0.2 (0.0-0.4) X10*3/uL Baso # (Auto) 0.0 (0.0-0.2) X10*3/uL Abs Immat Gran (auto) 0.01 (0.00-0.03) X10*3/uL Absolute Neuts (auto) 2.2 (2.0-8.3) x10*3/uL Absolute Nucleated RBC 0.000 (0.0-0.012) X10*3/uL Nucleated RBC % (auto) 0.0 (0.0-0.2) /100WBC Sodium 144 (135-145) mmol/L Potassium 4.7 D (3.3-5.1) mmol/L Chloride 108 (96-108) mmol/L Carbon Dioxide 26 (22-29) mmol/L Anion Gap 15 (12-20) BUN 14 (9-16) mg/dL Creatinine 1.28 (0.5-1.4) mg/dL Estim Creat Clear Calc 49.4 Estimated GFR 54 Random Glucose 133 H (60-115) mg/dL Calcium 9.0 (8.4-10.2) mg/dL Total Bilirubin 0.5 (0.0-1.0) mg/dL AST 22 (5-37) U/L ALT 11 (0-40) U/L Alkaline Phosphatase 82 (39-117) U/L Total Protein 7.4 (6.5-8.0) g/dL Albumin 4.2 (3.5-5.0) g/dL Urine Color Yellow Urine Appearance Cloudy Urine pH 5.5 (5.0-9.0) Ur Specific [place] <= 1.005 (1.005-1.025) Urine Protein 30 (1+) H (Neg-Trace) mg/dL Urine Glucose (UA) Negative (Negative) mg/dL Urine Ketones Negative (Negative) mg/dL Urine Blood Small (1+) H (Negative) Urine Nitrite Negative (Negative) Ur Leukocyte Esterase Large (3+) H (Negative) Urine RBC 0-2 (0-2) /HPF Urine WBC >50 H (0-5) /HPF Ur Squamous Epith Cells 0-2 (0-2) /HPF Urine Bacteria None Seen (None Seen) Hyaline Casts 0-2 (0-2) /LPF Discharge Plan Discharge Clinical Impression: Urinary retention, Urinary tract infection Patient Disposition: Home, Self-Care Instructions: [place] Catheter Care, Urinary Retention in Men (ED), Urinary Tract Infection in Men (DC) Additional Instructions: Drink plenty of fluids Take antibiotics as prescribed Sal[place] catheter care as advised Follow with urologist Prescriptions: New levofloxacin 500 mg tablet 500 mg PO DAILY 7 Days Qty: 7 0RF No Action phenazopyridine 100 mg tablet 100 mg PO Q8H PRN (Reason: Pain) 6 Days Qty: 12 0RF finasteride 5 mg tablet 5 mg PO DAILY Qty: 30 1RF cefuroxime axetil 250 mg tablet 250 mg PO BID Qty: 14 0RF omeprazole 20 mg capsule,delayed release(DR/EC) 20 mg PO DAILY lisinopril 20 mg tablet 20 mg PO DAILY pravastatin 40 mg tablet 40 mg PO DAILY Trulicity 3 mg/0.5 mL pen injector subcut insulin glargine [Basaglar MonoikPen U-100 Insulin] 100 unit/mL (3 mL) insulin pen subcut isosorbide mononitrate 30 mg tablet extended release 24 hr PO metformin 500 mg tablet 500 mg PO BID aspirin 81 mg tablet,delayed release (DR/EC) 81 mg PO DAILY metoprolol tartrate 50 mg tablet 50 mg PO BID albuterol sulfate inhalation nitroglycerin 0.4 mg tablet, sublingual 0.4 mg sublingual Q5M PRN Rx Instructions: do not exceed 3 doses per episode sulfamethoxazole-trimethoprim [Bactrim DS] 800-160 mg tablet 1 tab PO BID 7 Days Qty: 14 0RF tamsulosin 0.4 mg capsule 0.8 mg PO DAILY 90 Days Qty: 180 1RF Interventions: ED Discharge Assessment Last Done: 10/09/24 23:32 Discharge Date/Time: 10/09/24 23:33 Print Language: Wallisian
[2024-10-09 19:56] VITALS: BP 162/69; PULSE 109; RESP 20; TEMP 36.6; O2SAT 97; BMI 32.4
[2024-10-09 20:33] LABS: MANUAL DIFF FLAG NO
[2024-10-09 20:37] VITALS: BP 159/70; PULSE 108; RESP 18; TEMP 36; O2SAT 95
[2024-10-09 20:39] LABS: Appearance Urine Cloudy; Color Urine Yellow; Glucose Urine UA Negative (Negative); Leukocyte Esterase Urine Large (3+) (Negative); Nitrite Urine Negative (Negative); PH 5.5 (5.0-9.0); Specific Gravity - Urine <= 1.005 (1.005-1.025); UMIC TRIGGER UACC YES; Urine Blood Small (1+) (Negative); Urine Ketones Negative (Negative); Urine Protein 30 (1+) mg/dL (Neg-Trace)
[2024-10-09 20:40] LABS: Basophils Percent Auto 1.1 % (0-2); Eosinophils Absolute Auto 0.2 X10*3/uL (0.0-0.4); Eosinophils Percent Auto 4.8 % (0-4); Hematocrit 37.4 % (42.0-52.0); Hemoglobin 12.7 g/dl (14.0-18.0); Imm Gran Abs Auto 0.01 X10*3/uL (0.00-0.03); Imm Gran Pct Auto 0.3 % (0.0-0.4); Lymphocytes Percent Auto 25.9 % (20-40); Mean Corpuscular Hemoglobin 29.8 pg (27.0-33.0); Mean Corpuscular Volume 87.8 fL (80.0-98.0); Monocytes Absolute Auto 0.4 X10*3/uL (0.1-1.2); Monocytes Percent Auto 10.6 % (2-11); Neutrophils Absolute Auto 2.2 x10*3/uL (2.0-8.3); Neutrophils Percent Auto 57.3 % (45-73); Platelet Count 110 X10*3/uL (160-400); Red Blood Count 4.26 X10*6/uL (4.60-5.80); Red Cell Distribution Width 15.7 % (11.0-16.0); White Blood Count 3.8 X10*3/uL (4.8-10.8)
[2024-10-09 20:51] LABS: Bacteria Urine None Seen (None Seen); Hyaline Casts Urine 0-2 /LPF (0-2); RBC Urine 0-2 /HPF (0-2); Squamous Epithelial Cell Urine 0-2 /HPF (0-2); UACC Culture Trigger YES; WBC Urine >50 /HPF (0-5)
[2024-10-09 20:52] LABS: Alanine Aminotransferase 11 U/L (0-40); Albumin Level 4.2 g/dL (3.5-5.0); Alkaline Phosphatase 82 U/L (39-117); Anion Gap 15 (12-20); Aspartate Amino Transferase 22 U/L (5-37); Bilirubin Total 0.5 mg/dL (0.0-1.0); Blood Urea Nitrogen 14 mg/dL (9-16); Carbon Dioxide 26 mmol/L (22-29); Chloride 108 mmol/L (96-108); Creatinine Clr Calc Pharmacy 49.4; Estimated Glomerular Filt Rate 54; Glucose Random 133 mg/dL (60-115); Potassium 4.7 mmol/L (3.3-5.1); Sodium 144 mmol/L (135-145); Total Protein 7.4 g/dL (6.5-8.0)
[2024-10-09] MEDS: Lidocaine HCl 2 % Urojet 10 ML JEL.PF.APP TOPICAL (22:08)
[2024-10-09 23:02] VITALS: BP 107/66; PULSE 98; RESP 18; TEMP 36.4; O2SAT 98
[2024-10-09] MEDS: levoFLOXacin 500 MG TABLET PO (23:11)
[2024-10-09 23:32] VITALS: BP 107/66; PULSE 98; RESP 18; TEMP 36.4; O2SAT 98
== END 2024-10-09 23:33 | disposition home or self-care (01) ==
PROVIDERS: Registered Nurse Emergency; Emergency Provider Internal Medicine; PCP Internal Medicine
DX: R33.9 Retention of urine, unspecified (principal); N39.0 Urinary tract infection, site not specified; R00.0 Tachycardia, unspecified; E11.9 Type 2 diabetes mellitus without complications; I10 Essential (primary) hypertension; E78.00 Pure hypercholesterolemia, unspecified; Z79.02 Long term (current) use of antithrombotics/antiplatelets; Z79.4 Long term (current) use of insulin; Z79.85 Long-term (current) use of injectable non-insulin antidiabetic drugs; Z79.84 Long term (current) use of oral hypoglycemic drugs; Z79.82 Long term (current) use of aspirin; Z79.899 Other long term (current) drug therapy
CPT/HCPCS: 36415; 51702; 51798; 80053; 81001; 85025; 87086; 87088; 87186; 99284; 99285

== ENCOUNTER 2024-10-11 09:18 | Outpatient (REF) | payer MEDICARE, OTHER, SELFPAY ==
--- OUTSIDE RECORDS SUMMARY | 2024-10-11 10:02 | XMS_ITS ---
Author Organization [facility] Address [address] [place] [address] Phone Care Team Providers Care Healthcare Recruiter Name Role Phone Sharri Mills MD Primary Care Provider [phone] Active Problems Problem Noted Date Diagnosed Date 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[facility] V24, [facility] V28) 1 05/22/2023 Assessment & Plan (03/23/2024 11:52 AM EST): Splenomegaly 03/22/2024 Obstructive sleep apnea 07/20/2021 Overview (03/22/2024): [facility] Home sleep test 07/10/2021; weight [...] right femoral artery by Dr. Hernandez at [facility]; post development the patient developed a [...] scan in 6 months COPD with emphysema ([facility] V24, [facility] V28) 0 06/25/2019 Overview (03/22/2024): Patient has been heavy smoker until 2018. 120PPD. Sees thoracic surgery for lung cancer screen. Generalized anxiety disorder 03/27/2015 Type 2 diabetes mellitus wit h renal complication ([facility] V24, [facility] V28) 12/01/2013 Assessment & Plan (03/23/2024 11:52 AM EST): Orders: Trulicity 3 mg/0.5 mL pen injector injection; Inject 0.5 mL (3 mg total) under the skin 1 (one) time per week. Type II diabetes mellitus wi th ophthalmic manifestations ([facility] V24, [facility] V28) 12/01/2013 Overview (03/22/2024): NS noted on [...] - angiogram in setting of inferior wall PR with stenting of OM March 30, 2020 [...] 07/07/2005 Overview (03/22/2024): 1966 O update Asbestosis ([facility] V24, [facility] V28) 07/07/2005 Overview (03/22/2024): pleural plaques Allergic [...] treatments are [facility]. Treatments may have been administered in another system. Lifetime Dose Tracking * Chemical Lifetime Dose Automatic Entry Manual Entr y Radiation 536 mGy 0 mGy 536 mGy Fluoro Time 4.7 minutes 0 minutes 4.7 minutes Resolved Problems Problem Noted Date Diagnosed Date Resolved Date Alcohol use disorder, severe , dependence ([facility] V24, [facility] V28) 06/30/2019 03/22/2024
[2024-10-11 10:36] LABS: Prostate Specific Antigen 3.09 ng/mL (<0.05-4.0)
== END 2024-10-11 09:19 | disposition home or self-care (01) ==
LOC: HO.10HDL 09:18
PROVIDERS: Visit Provider Nurse Practitioner Family
DX: R33.9 Retention of urine, unspecified (principal); Z12.5 Encounter for screening for malignant neoplasm of prostate
CPT/HCPCS: 36415; 84153

== ENCOUNTER 2024-11-05 09:58 | Outpatient (AMB) | payer MEDICARE, OTHER, SELFPAY ==
--- NOTE | 2024-11-05 10:18 | A.OFFVIS_ITS ---
Intake Visit Reasons: cysto/imaging/labs Intake Note: Patient is present for Cystoscopy/IMAGING/LABS Urology Medication:FINASTERIDE,TAMSULOISN Antibiotic Allergy:NONE Blood Thinner:ASPIRIN Lot:[id number] Exp:07/22/27 Resource Teacher Required: No Allergies No Known Allergies Allergy (Verified 11/05/24 10:21) HPI Comments Details: Aura is a pleasant male. He is a patient of Dr. Mills. 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 Generalized anxiety disorder COPD (chronic obstructive pulmonary disease) with emphysema Alcohol use disorder Pulmonary nodules Hairy cell leukemia Splenomegaly Aortic stenosis CAD (coronary artery disease) Nocturnal hypoxemia due to emphysema Obstructive sleep apnea (adult) (pediatric) Class 2 severe obesity with serious comorbidity and body mass index (BMI) of 35.0 to 35.9 in adult Surgical History History of coronary angioplasty with insertion of stent Social History Alcohol intake: current Alcohol intake frequency: does not drink Review of Systems Const Denies chills and Denies fever(s) Card Reports no additional complaints and Denies syncope Resp Denies cough GI Denies abdominal pain and Denies heartburn Reports as per HPI and Denies change in libido Neuro Denies syncope Psych Denies change in libido Endo Denies change in libido Physical Exam Const General: cooperative, healthy appearing, comfortable and no acute distress Orientation/consciousness: patient oriented x3 HEENT Face and sinus: Yes normal facial exam Mouth: moist mucous membranes Neck Neck: Yes normal visual inspection, Yes full ROM and Yes trachea midline Chest Chest palpation & inspection: normal inspection of the chest Resp Effort & Inspection: normal respiratory effort, able to speak in complete sentences and no respiratory distress GI Inspection: Yes normal to inspection Back/Spine/Pelvis Cervical Spine: normal cervical lordosis Thoracic/Lumbar Spine: thoracic and lumbar spine normal to inspection Skin General skin exam: no rashes or lesions noted Neuro General: patient oriented x3, gait normal, tone normal and moves all extremities Extrem General: Yes normal to inspection and Yes capillary refill normal Office Procedures Cystoscopy Consent Discussed risk and benefit or proposed procedure with the patient. Information consent for procedure given to the patient. Discussed technical aspects, risks, benefits and alternatives in full. Addressed all of the patient's questions and concerns regarding the procedure. The patient demonstrated knowledge and u nderstanding. They wish to proceed with this procedure. Preparation The patient was prepped in the usual manner. A medical assistant float was present and in the room. Genitalia was prepped with betadine solution in a sterile manner. Lidocaine Jelly 2% was placed into the urethra and 16Fr flexible Olympus cystoscope was inserted into the meatus after adequate lubrication. Procedure Cystoscopy performed using a disposable Urovue digital 16 [place] cystoscope. Meatus circumcised Urethra anterior and posterior urethra normal Prostatic Urethra trilobar hypertrophy Bladder examination with retroflexion of cystoscope Bladder Orifices normal shape and position Bladder Capacity Normal Trabeculations grade 1 Cellule Formation ES Diverticulum Formation None Mucosal Erythema None Bladder Tumor None Removed 16fr ackerman catheter prior to cystoscopy prep [id number] DISPOSABLE SCOPE URO-G FLEXIBLE SCOPE Procedure code (CPT) selection complete Office Meds lidocaine HCl 2 % mucosal jelly in applicator Performing Provider: Shaun Yeboah MD Performing Location: [facility] Administered by: Clifford Piedra LPN on 11/05/24 10:44 Dose Route Admin Location Dispensed Lot Number Expiration Date ND Applications Developer 10 mL intra-urethral 10 mL nitrofurantoin monohydrate/macrocrystals 100 mg capsule Performing Provider: Shaun Yeboah MD Performing Location: [facility] Administered by: Clifford Piedra LPN on 11/05/24 10:44 Dose Route Admin Location Dispensed Lot Number Expiration Date ND Applications Developer 100 mg PO 1 cap Results AMB Urinalysis, Automated UA Leukoctes 500 Betina/uL Last Edit by DICK Patel on 11/05/24 13:49 UA Nitrite Positive Last Edit by DICK Patel on 11/05/24 13:49 UA Urobilinogen 0.2 mg/dL Last Edit by DICK Patel on 11/05/24 13:4 9 UA Protein 300 mg/dL Last Edit by DICK Patel on 11/05/24 13:49 UA pH 6.0 Last Edit by Behzad Esquivel [facility] on 11/05/24 13:49 UA Blood 200 [place]/uL Last Edit by Behzad Esquivel [facility] on 11/05/24 13:49 UA Specific [place] 1.015 Last Edit by Behzad Esquivel [facility] on 11/05/24 13: 49 UA Ketone Negative Last Edit by Behzad Esquivel [facility] on 11/05/24 13:49 UA Bilirubin 0 mg/dL Last Edit by Behzad Esquivel [facility] on 11/05/24 13:49 UA Glucose 0 mg/dL Last Edit by Behzad Esquivel [facility] on 11/05/24 13:49 Results Reviewed Results Reviewed: Laboratory Last Values Urine pH (Auto) 6.0 11/05/24 13:48 Specific [place] (Auto) 1.015 11/05/24 13:48 Urine Protein (Auto) 300 mg/dL 11/05/24 13:48 Glucose (UA)(Auto) 0 mg/dL 11/05/24 13:48 Urine Ketones (Auto) Negative 11/05/24 13:48 Urine Blood (Auto) 200 [place]/uL 11/05/24 13:48 Urine Nitrite (Auto) Positive 11/05/24 13:48 Urine Bilirubin (Auto) 0 mg/dL 11/05/24 13:48 Urine Urobilinogen (Auto) 0.2 mg/dL 11/05/24 13:48 Leukocyte Esterase (Auto) 500 Betina/uL 11/05/24 13:48 Assessment & Plan Assessment & Plan (1) Urinary retention: Code(s): R33.9 - Retention of urine, unspecified Category: Medical (2) Complicated urinary tract infection: Code(s): N39.0 - Urinary tract infection, site not specified Category: Medical Plan Treat possible UTI Continue combination therapy 4 month follow-up Orders: Orders Urine Culture 11/05/24 N39.0 - Urinary tract infection, site not specified AMB Urinalysis Automated 11/05/24 Z13.9 - Encounter for screening, unspecified AMB Cystoscopy 11/05/24 R33.9 - Retention of urine, unspecified Medications: New sulfamethoxazole-trimethoprim 800-160 mg (Bactrim DS) 1 tab PO BID 10 tabs 0RF 5 days Changed From finasteride 5 mg PO DAILY 30 tabs 1RF To finasteride 5 mg PO DAILY 90 tabs 1RF 90 days Discontinued cefuroxime axetil Discontinued Reason: Patient Completed Course 250 mg PO BID 14 tabs 0RF levofloxacin Discontinued Reason: Patient Completed Course 500 mg PO DAILY 7 days 7 tabs 0RF sulfamethoxazole-trimethoprim 800-160 mg Discontinued Reason: Patient Completed Course 1 tab PO BID 7 days 14 tabs 0RF Patient Instructions: This note is constructed using voice recognition software. While every effort has been made to ensure accuracy reading specialist errors may have been included. Imaging studies, laboratory and physical exam results were discussed and reviewed in detail. No major barriers to patient understanding were identified. An opportunity to ask questions regarding the treatment plan was provided. All questions were answered. The patient expressed understanding and agreement with the above treatment plan. The patient is aware they should contact our office by phone for worsening of their current condition or the appearance of new urologic symptoms. Compliance is encouraged with any medications and followup testing that is ordered. It is a privilege to participate in the urologic care of your patient. If you have any questions or concerns regarding treatment for the above conditions, or other urologic issues, please do not hesitate to contact me. The office telephone contact is [phone]. Sincerely, Dr Shaun Yeboah MD, [place] [facility] - Urology Compassionate Specialist Care for the Genitourinary System Coding Level of Care Code Est Pt Level 4 (15472) Complex EM visit Add On G2211 Diagnoses Urinary retention R33.9 Complicated urinary tract infection N39.0 CPT Codes Cystoscopy - CPT: 59906-[id number] ([id number])
--- OUTSIDE RECORDS SUMMARY | 2024-11-05 10:22 | XMS_ITS | Clinical Summary ---
Author Organization [facility] Address [address] [place] [address] Care Team Providers Care Job Coach Name Role Phone Sharri Mills MD Primary Care Provider [phone] Allergies No known active allergies Medications Medication [...] 85 07/23/2023 9:51 AM EDT Temperature 36.6 C (97.8 F) 07/23/2023 9:51 AM EDT Respiratory Rate 18 10/05/2019 10:00 AM EDT [...] 1-dose 75+ series) 2020 Influenza Vaccine (#1) 2024 , 03/05/2022, 01/17/2021, Additional history exists DTap [...] age to complete this topic Care Teams Job Coach Relationship Specialty Start Date End Date Sharri Mills MD PCP - General Internal Medicine 07/09/19
--- OUTSIDE RECORDS SUMMARY | 2024-11-05 10:22 | XMS_ITS ---
Author Organization [facility] Address [address] [place] [address] Phone Care Team Providers Care [employer] Advisor Name Role Phone Sharri Mills MD Primary Care Provider [phone] Active Problems Problem Noted Date Diagnosed Date Pericardial effusion 10/15/2024 Overview (10/25/2024): September 2024 - echocardiogram showing large pericardial effusion; sed rate negative and crp elevated; started on aspirin and colchicine Assessment & Plan (10/25/2024 4:13 PM EDT): No evidence of cardiac tamponade at this time. Awaiting CT scan. He will continue with high dose aspirin and colchicine for now. Also awaiting repeat echocardiogram in November. 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 Hernandez at 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 Developed LBBB and now on Zio patch. The patient is feeling better, but it is unclear by how much given he has been restricting his activities. I send in referral for cardiac rehab. His valve is working well on exam and by symptoms. Echocardiogram showed valve is working well. Instructed him about the need for prophylactic antibiotics prior to dental work. Orders: Ambulatory referral to Cardiac Rehabilitation; Future Assessment & Plan (08/31/2024 2:34 PM EDT): [...] scan in 6 months COPD with emphysema ([facility] V24, [facility] V28) 0 06/25/2019 Overview (03/22/2024): Patient has been heavy smoker until 2018. 120PPD. Sees thoracic surgery for lung cancer screen. 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 Microalbuminuria 06/26/2012 Prostatism 05/02/2010 Hypertension 04/15/2007 Assessment & Plan (10/25/2024 4:13 PM EDT): Controlled. Continue with lisinopril, isosorbide and metoprolol. Orders: ECG 12 lead Assessment & Plan (08/31/2024 2:34 PM EDT): [...] - angiogram in setting of inferior wall [place] with stenting of OM March 30, 2020 [...] on 06/11/2024 10:12 AM Assessment & Plan (10/25/2024 4:13 PM EDT): Catheterization from 2024 showed patent stent with no other significant disease elsewhere. Echocardiogram from 2024 showed preserved LV systolic function. No anginal symptoms. Continue with aspirin (on high dose for now), pravastatin, lisinopril, metoprolol and isosorbide. We discussed risk reduction through lifestyle choices including healthy diet, routine exercise and weight management. Referral sent in for cardiac rehab. Orders: ECG 12 lead Ambulatory referral to Cardiac Rehabilitation; Future Assessment & Plan (08/31/2024 2:34 PM EDT): [...] 07/07/2005 Overview (03/22/2024): 1966 O update Asbestosis (CMS/HCC V24, CMS/HCC V28) 07/07/2005 Overview (03/22/2024): pleural plaques Allergic rhinitis 07/07/2005 Hearing loss 07/07/2005 Overview (03/22/2024): O update Hypercholesterolemia 07/07/2005 Assessment & Plan (10/25/2024 4:13 PM EDT): June 2023 - LDL of 155. Continue with pravastatin. Orders: ECG 12 lead Assessment & Plan (08/31/2024 2:34 PM EDT): June 2023 - LDL of 155. Continue with pravastatin. Assessment & Plan (03/23/2024 11:52 AM EST): Orders: Lipid panel with reflex to direct LDL; Future Current Oncology Plans No current plan information found. Past Plans No past plan information found. Radiation Treatments * No radiation treatments are documented for this patient in [facility]. Treatments may have been administered in another system. Lifetime Dose Tracking * Chemical Lifetime Dose Automatic Entry Manual Entr y Radiation 536 mGy 0 mGy 536 mGy Fluoro Time 4.7 minutes 0 minutes 4.7 minutes Resolved Problems Problem Noted Date Diagnosed Date Resolved Date Alcohol use disorder, severe , dependence ([facility] V24, [facility] V28) 06/30/2019 03/22/2024
== END 2024-11-05 11:22 | disposition home or self-care (01) ==
LOC: HO.HUSH 09:58
PROVIDERS: PCP Internal Medicine; Visit Provider Urology
DX: Z13.9 Encounter for screening, unspecified (principal); R33.9 Retention of urine, unspecified
CPT/HCPCS: 52000

== ENCOUNTER 2024-11-05 09:58 | Outpatient (REF) | payer MEDICARE, OTHER, SELFPAY | END 2024-11-05 09:59 | disposition home or self-care (01) | LOC: HO.LAB 09:58 | PROVIDERS: PCP Internal Medicine; Visit Provider Urology | DX: N39.0 Urinary tract infection, site not specified (principal); Z13.9 Encounter for screening, unspecified | CPT/HCPCS: 87086; 87088; 87186 ==

== ENCOUNTER → 2024-12-17 08:42 | Outpatient (BNVA) | payer MEDICARE, OTHER, SELFPAY | PROVIDERS: PCP Internal Medicine; Visit Provider Nurse Practitioner Family | DX: Z46.6 Encounter for fitting and adjustment of urinary device (principal); R33.9 Retention of urine, unspecified | CPT/HCPCS: 51702 ==

== ENCOUNTER → 2025-01-12 09:33 | Outpatient (BNVA) | payer MEDICARE, OTHER, SELFPAY | PROVIDERS: PCP Internal Medicine; Visit Provider Nurse Practitioner Family | DX: Z46.6 Encounter for fitting and adjustment of urinary device (principal); R39.9 Unspecified symptoms and signs involving the genitourinary system; Z96.0 Presence of urogenital implants | CPT/HCPCS: 51702 ==

== ENCOUNTER → 2025-02-09 09:19 | Outpatient (BNVA) | payer MEDICARE, OTHER, SELFPAY | PROVIDERS: PCP Internal Medicine; Visit Provider Nurse Practitioner Family | DX: Z46.6 Encounter for fitting and adjustment of urinary device (principal); R33.9 Retention of urine, unspecified | CPT/HCPCS: 51702 ==

== ENCOUNTER 2025-03-07 05:54 | Day surgery (SDC) | payer MEDICARE, OTHER, SELFPAY ==
--- OUTSIDE RECORDS SUMMARY | 2025-01-17 14:40 | XMS_ITS ---
Author Organization [facility] Address [address] [place] [address] Phone Care Team Providers Care Electrician Technician Name Role Phone Sharri Mills MD Primary Care Provider [phone] Active Problems Problem Noted Date Diagnosed Date LBBB (left bundle branch block) 12/31/2024 Assessment & Plan (12/31/2024 1:40 PM EDT): Patient developed a new left bundle branch block post TAVR. During hospitalization there was a reduction in his LVEF. Subsequently, he has been referred to our EP service and has an appointment in [address] Pedersen to further discuss DIRECTOR ACCOUNT MANAGEMENT-D therapy. Pericardial effusion 10/15/2024 Overview (10/25/2024): September 2024 - echocardiogram showing large pericardial effusion; sed rate negative and crp elevated; started on aspirin and colchicine Assessment & Plan (12/31/2024 1:40 PM EDT): Continues on aspirin and colchicine. He does notice a recurrence and chest discomfort over the past week. Subsequently, we will update echocardiogram to further evaluate whether or not there has been recurrence of pericardial effusion. Patient has close follow-up with his oncologist as it has been determined the cause of his effusion is hairy cell leukemia. Orders: Transthoracic echocardiogram (TTE) complete with PRN contrast, bubble, strain, and 3D order panel; Future perflutren lipid microsphere (DEFINITY) 1.3 mL in sodium chloride 0.9% 8.7 mL injection Assessment & Plan (10/25/2024 4:13 PM EDT): [...] right femoral artery by Dr. Hernandez at [facility]; post development the patient developed a [...] scan in 6 months COPD with emphysema ([facility] V24, [facility] V28) 0 06/25/2019 Overview (03/22/2024): Patient has been heavy smoker until 2018. 120PPD. Sees thoracic surgery for lung cancer screen. 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 This is resolved with 1 sublingual nitroglycerin. He did recently have cardiac catheterization before TAVR which did not reveal any progression in obstructive coronary disease. At this time he will continue on aspirin, metoprolol succinate and pravastatin. Instructed to call 911 or go to the emergency room should the patient begin to experience chest pain or pressure lasting greater than 10 minutes does not resolve with rest. Orders: nitroglycerin (NITROSTAT) 0.4 mg SL tablet; Place 1 tablet (0.4 mg total) under the tongue every 5 (five) minutes if needed for chest pain. ECG 12 lead Transthoracic echocardiogram (TTE) complete with PRN contrast, bubble, strain, and 3D order panel; Future perflutren lipid microsphere (DEFINITY) 1.3 mL in sodium chloride 0.9% 8.7 mL injection Assessment & Plan (10/25/2024 4:13 PM EDT): [...] EST): Bacterial meningitis 07/07/2005 Overview (03/22/2024): 1966 [facility] update Asbestosis ([facility] V24, [facility] V28) 07/07/2005 Overview (03/22/2024): pleural plaques Allergic [...] treatments are documented for this patient in [facility]. Treatments may have been administered in another system. Lifetime Dose Tracking * Chemical Lifetime Dose Automatic Entry Manual Entr y Radiation 536 mGy 0 mGy 536 mGy Fluoro Time 4.7 minutes 0 minutes 4.7 minutes Resolved Problems Problem Noted Date Diagnosed Date Resolved Date Alcohol use disorder, severe , dependence ([facility] V24, [facility] V28) 06/30/2019 03/22/2024
--- OUTSIDE RECORDS SUMMARY | 2025-01-17 14:40 | XMS_ITS ---
Author Organization [facility] Address [address] [place] [address] Phone Care Team Providers Care Director Of Agronomy Name Role Phone Sharri Mills MD Primary Care Provider [phone] Chronic Care Management Status:Ongoing (Active) Start date:11/26/2024 Enrollment date:12/17/2024 Enrollment reason:Referred by Care Team Case Team Name Relationship Phone Kasie Haynes RN Care Manager(Responsible S taff) Continued Care and Services Coordination
--- OUTSIDE RECORDS SUMMARY | 2025-01-17 14:40 | XMS_ITS | Clinical Summary ---
Author Organization [facility] Address [address] [place] [address] Phone Care Team Providers Care Operations Specialist Name Role Phone Sharri Mills MD Primary Care Provider [phone] Allergies No known active allergies Medications albuterol HFA (PROAIR HFA ; PROVENTIL HFA ; VENTOLIN HFA) 90 mcg/actuation inhaler Inhale 2 puffs by mouth 4 (four) times a day. 10/02/19 22 Active Trelegy Ellipta 100-62.5-25 mcg inhaler Inhale 1 puff (100 mcg total) by mouth 1 (one) time each day. 07/10/19 24 Active tamsulosin (FLOMAX) 0.4 mg 24 hr capsule Take 1 capsule (0.4 mg total) by mouth 1 (one) time each day. Capsules should be taken 30 minutes following the same meal each day. 90 each 1 03/23/20 24 Active blood sugar diagnostic (OneTouch Verio test strips) test stripIndicatio ns:Type 2 diabetes mellitus with stage 3 chronic kidney disease, without long-term current use of insulin, unspecified whether stage 3a or 3b CKD (CMS/HCC V24, CMS/HCC V28) DIRECTED TO TEST BLOOD SUGAR ONCE DAILY 100 strip 3 07/10/19 25 Active pravastatin (PRAVACHOL) 40 mg tablet TAKE 1 TABLET(40 MG) BY MOUTH 1 TIME EACH DAY 90 tablet 1 10/13/19 25 Active omeprazole (PriLOSEC) [address] capsule TAKE 1 CAPSULE(20 MG) BY MOUTH 1 TIME EACH DAY. DO NOT CRUSH OR CHEW 90 capsule 1 10/13/19 25 Active colchicine (COLCRYS) 0.6 mg tabletIndicati ons:Pericardia l effusion Take 1 tablet (0.6 mg total) by mouth 2 (two) times a day. 60 each 11 10/16/19 25 026 Active aspirin 325 mg tabletIndicati ons:Pericardia l effusion Take 2 tablets (650 mg total) by mouth 3 (three) times a day. 180 each 11 10/16/19 25 026 Active finasteride (PROSCAR) 5 mg tablet Take 1 tablet (5 mg total) by mouth 1 (one) time each day. Do not crush, chew, or split. Active lisinopriL (PRINIVIL,ZEST RIL) 20 mg tablet Take 0.5 tablets (10 mg total) by mouth 1 (one) time each day. 12/01/19 25 Active dapagliflozin propanediol (Farxiga) 10 mg tablet Take 1 tablet (10 mg total) by mouth 1 (one) time each day. 90 tablet 1 12/29/19 25 Active nitroglycerin (NITROSTAT) 0.4 mg SL tabletIndicati ons:Coronary artery disease due to lipid rich plaque Place 1 tablet (0.4 mg total) under the tongue every 5 (five) minutes if needed for chest pain. 90 tablet 01/01/20 25 Active metFORMIN (GLUCOPHAGE) 500 mg tablet TAKE 2 TABLETS BY MOUTH TWICE DAILY WITH MEALS 360 tablet 1 01/07/20 25 Active metoprolol succinate (Toprol XL) 100 mg 24 hr tablet Take 1 tablet (100 mg total) by mouth 1 (one) time each day. Do not crush or chew. 90 each 3 01/11/20 25 Active nitroglycerin (NITROSTAT) 0.[address] 1 tablet (0.4 mg total) under the tongue every 5 (five) minutes if needed. 12/05/19 22 025 Discontinued(Re order) metFORMIN (GLUCOPHAGE) 500 mg tablet Take 1 tablet (500 mg total) by mouth 2 (two) times a day with meals. 180 each 1 03/23/20 24 025 Discontinued insulin glargine,hum.r ec.anlog (Basaglar KwikPen U-100 Insulin) 100 unit/mL (3 mL) injection pen ADMINISTER 44 UNITS UNDER THE SKIN AT BEDTIME 45 mL 1 08/14/19 025 Discontinued metoprolol succinate (TOPROL-XL) 50 mg 24 hr tablet Take 1 tablet (50 mg total) by mouth 1 (one) time each day. Do not crush or chew. 90 each 08/26/19 025 Discontinued(Al ternate therapy) Trulicity 3 mg/0.5 mL pen injector injectionIndic ations:Type 2 diabetes mellitus with stage 3 chronic kidney disease, without long-term current use of insulin, unspecified whether stage 3a or 3b CKD (CMS/HCC V24, CMS/HCC V28) ADMINISTER 3 MG UNDER THE SKIN 1 TIME EVERY WEEK 6 mL 10/28/19 025 Discontinued(Do se adjustment) dapagliflozin propanediol (Farxiga) 10 mg tablet Take 1 tablet (10 mg total) by mouth 1 (one) time each day. 025 Discontinued(Re order) insulin glargine,hum.r ec.anlog (Basaglar KwikPen U-100 Insulin) 100 unit/mL (3 mL) injection pen Inject 30 Units under the skin at bedtime. 12/29/19 025 Discontinued(Th erapy completed) metFORMIN (GLUCOPHAGE) 500 mg tablet Take 1 tablet (500 mg total) by mouth 1 (one) time each day. 12/29/19 025 Discontinued dulaglutide (TRULICITY) 4.5 mg/0.5 mL pen injector injectionIndic ations:Type 2 diabetes mellitus with stage 3a chronic kidney disease, without long-term current use of insulin (CMS/HCC V24, CMS/HCC V28) Inject 0.5 mL (4.5 mg total) under the skin every 7 (seven) days. 6 mL 12/29/19 025 Discontinued Hospital, Clinic, or Other Facility Administered Medication Ordered Dose Route Frequency Start Date End Date Status perflutren lipid microsphere (DEFINITY) 1.3 mL in sodium chloride 0.9% 8.7 mL injection 10 mL IV Once in imaging 12/21/2024 12/21/2024 End ed perflutren lipid microsphere (DEFINITY) 1.3 mL in sodium chloride 0.9% 8.7 mL injectionIndications: Coronary artery disease due to lipid rich plaque,Pericardial effusion 10 mL IV Once in imaging 01/04/2025 01/04/2025 Ended Active Problems Problem Noted Date Diagnosed Date LBBB (left bundle branch block) 12/31/2024 Assessment & Plan (12/31/2024 1:40 PM EDT): Patient developed a new left bundle branch block post TAVR. During hospitalization there was a reduction in his LVEF. Subsequently, he has been referred to our EP service and has an appointment in [address] Pedersen to further discuss [employer]-D therapy. Pericardial effusion 10/15/2024 Overview (10/25/2024): September [...] 03/22/2024 Obstructive sleep apnea 07/20/2021 Overview (03/22/2024): [facility] Home sleep test 07/10/2021; weight 225; [...] right femoral artery by Dr. Hernandez at [facility]; post development the patient developed a [...] WRITTEN ON 05/10/2024 10:38 AM BY CATRACHITO CHAPMAN NP The patient appears euvolemic upon exam [...] scan in 6 months COPD with emphysema ([facility] V24, [facility] V28) 0 06/25/2019 Overview (03/22/2024): Patient has been heavy smoker until 2018. 120PPD. Sees thoracic surgery for lung cancer screen. Generalized anxiety disorder 03/27/2015 Type 2 diabetes mellitus wit h renal complication ([facility] V24, [facility] V28) 12/01/2013 Assessment & Plan (03/23/2024 11:52 AM EST): Orders: Trulicity 3 mg/0.5 mL pen injector injection; Inject 0.5 mL (3 mg total) under the skin 1 (one) time per week. Type II diabetes mellitus wi th ophthalmic manifestations ([facility] V24, [facility] V28) 12/01/2013 Overview (03/22/2024): NS [...] - angiogram in setting of inferior wall MD with stenting of OM March 30, 2020 [...] 07/07/2005 Overview (03/22/2024): 1966 O update Asbestosis ([facility] V24, [facility] V28) 07/07/2005 Overview (03/22/2024): pleural plaques Allergic rhinitis 07/07/2005 Hearing loss 07/07/2005 Overview (03/22/2024): IMO update Hypercholesterolemia 07/07/2005 Assessment & Plan (10/25/2024 4:13 PM EDT): June 2023 - LDL of 155. Continue with pravastatin. Orders: ECG 12 lead Assessment & Plan (08/31/2024 2:34 PM EDT): June 2023 - LDL of 155. Continue with pravastatin. Assessment & Plan (03/23/2024 11:52 AM EST): Orders: Lipid panel with reflex to direct LDL; Future Resolved Problems Problem Noted Date Diagnosed Date Resolved Date Alcohol use disorder, severe , dependence ([facility] V24, [facility] V28) 06/30/2019 03/22/2024 Encounters Date Type Department Care Team Description 01/13/2025 Telephone [facility] Cardiology [facility] [address] [facility] [address] [place] [phone] Catrachito Chapman NP 01/10/2025 10:25 AM EDT Consult [facility] Cardiology [facility] [address] [facility] [address] [place] [phone] Kole Pedersen MD LBBB (left bundle branch block) (Primary Dx) 01/10/2025 Telephone [facility] Hematology Oncology [address] [place] [phone] Kt Roa MD 01/06/2025 1:00 PM EDT Office Visit Nephrology [address] [phone] Bharath Gonzalez MD Stage 3 chronic kidney disease, unspecified whether stage 3a or 3b CKD ([facility] V24, [facility] V28) (Primary Dx); Type 2 diabetes mellitus with diabetic nephropathy, without long-term current use of insulin ([facility] V24, CMS/HCC V28); Hypertension, unspecified type; Microalbuminuria 01/06/2025 8:45 AM EDT Office Visit [facility] Hematology Oncology [address] [place] [phone] Kt Roa MD Hairy cell leukemia, in relapse ([facility] V24, [facility] V28) (Primary Dx) 01/04/2025 9:00 AM EDT Ancillary Procedure [facility] Cardiology [facility] - [facility] [address] [phone] Coronary artery disease due to lipid rich plaque; Pericardial effusion 12/31/2024 12:40 PM EDT Office Visit [facility] Cardiology [facility] - [facility] [address] [facility] [address] [place] [address] Catrachito Chapman NP Coronary artery disease due to lipid rich plaque (Primary Dx); Pericardial effusion; LBBB (left bundle branch block) 12/28/2024 9:30 AM EDT Office Visit [address] [phone] Ne Summers PA Type 2 diabetes mellitus with stage 3a chronic kidney disease, without long-term current use of insulin ([facility] V24, [facility] V28) (Primary Dx) 12/21/2024 8:00 AM EDT Ancillary Procedure [facility] [address] [facility] [address] [place] [address] Pericardial effusion 11/30/2024 10:30 AM EDT Office Visit [address] [phone] Sharri Mills MD Pericardial effusion (Primary Dx); Hairy cell leukemia, [facility] relapse [facility] [place]); Type 2 diabetes mellitus with stage 3 chronic kidney disease, without long-term current use of insulin, unspecified whether stage 3a or 3b CKD ([facility] [place], [facility] V28); Coronary artery disease involving ute coronary artery of ute heart without angina pectoris 11/29/2024 10:30 AM EDT Office Visit [facility] Hematology Oncology [address] [place] [phone] Kt Roa MD Hairy cell leukemia, in remission ([facility] [place], [facility] V[place]) (Primary Dx) 11/26/2024 Telephone [facility] Hematology Oncology [address] [place] [phone] Kt Roa MD 11/25/2024 Telephone [facility] Cardiology [facility] [address] [facility] [address] [place] [address] Ne Garcia NP 11/25/2024 Telephone [facility] Cardiology [facility] - [address] [place] [address] [place] [phone] Ave Bird NP 11/24/2024 Telephone [facility] Hematology Oncology [address] [place] [phone] Teresa Montano [place] 11/23/2024 Telephone [facility] [address] [facility] [address] [place] [address] Rocky Hutchinson NP 11/17/2024 6:56 AM EDT - 11/17/2024 11:59 PM EDT Hospital Encounter [facility] CT Scan [address] [place] [phone] Pericardial effusion Discharge Disposition: Home or Self Care 11/17/2024 Telephone [facility] Cardiology [facility] [address] [place] [address] Rocky Hutchinson NP 10/26/2024 Telephone [facility] Cardiology [facility] - [address] [place] [phone] Catrachito Chapman NP 10/25/2024 2:10 PM EDT Office Visit [facility] - [address] [place] [phone] Rocyk Hutchinson NP History of transcatheter aortic valve replacement (TAVR) (Primary Dx); Coronary artery disease involving ute coronary artery of ute heart without angina pectoris; Primary hypertension; Hypercholesterolemia; Pericardial effusion 10/18/2024 Telephone [facility] Cardiology [facility] [address] [place] [phone] Catrachito Chapman NP from Last 3 Months Immunizations Name Administration [...] Comments COLONOSCOPY 08/12/2014 normal ANGIOPLASTY with stent AORTIC VALVE REPLACEMENT 08/16/2024 Medical History Medical History Date Comments Microalbuminuria Allergic rhinitis CAD (coronary artery disease) Hypercholesteremia Hearing loss Asbestosis ([facility] V24, [facility] V28) Hypertension Prostatism 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 ([facility] V24, [facility] V28) NETTA (obstructive sleep apnea) Aortic stenosis 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[facility] V24, [facility] V28) COPD (chronic obstructive pu lmonary disease) ([facility] [place], [facility] V28) NETTA (obstructive sleep apnea) Nocturnal hypoxemia due to emphysema ([facility] V2 4, [facility] V28) Splenomegaly Anxiety Pulmonary nodules Alcohol use disorder, severe , dependence ([facility] [place], [facility] V28) 06/30/2019 History of transcatheter aortic valve replacemen t (TAVR) 09/16/201908/20 Hearing loss Family History Medical History Relation Name Comments Diabetes Father stroke Cataracts Mother Relation Name Status Comments Father Mother Social History Tobacco Use Types Packs/Day Years Used Date Smoking Tobacco: Every Day Cigarettes 1 64.7 Started: 1960 Smokeless Tobacco: Never Tobacco Cessation:Ready to Q uit: Not Asked; Counseling Given: Not Answered Alcohol Use Standard Drinks/Week Comments Not Currently 0 (1 standard drink = 0.6 oz pur e alcohol) 1-2 beers per week Housing Instability Answer Date Recorde d Are you worried that in the next 2 months you may not have stable housing? No 11/26/2024 Food Access & Nutrition Answer Date Rec orded Do you have access to a vari ety of food including fruits and vegetables? Yes 11/26/2024 Access to Healthcare Answer Date Record ed Within the last 3 months, khadra torres many times did you visit the emergency department for your medical care? 1 11/26/2024 Health Literacy Answer Date Recorded How often do you need to hav e someone help you when you read instructions, pamphlets, or other written material from your doctor or pharmacy? Rarely 11/26/2024 Caregiver: How often do you need to have someone help you when you read instructions, pamphlets, or other written material from your doctor or pharmacy? Not on file 11/26/2024 Financial Risk Answer Date Recorded How hard is it for you to pa y for the very basics like food, housing, medical care, and air conditioning / heating? Not very hard 11/26/2024 Transportation Answer Date Recorded Has the lack of transportati on kept you from meetings, work, or from getting things needed for daily living? No Has the lack of transportati on kept you from medical appointments or from getting medications? No 11/26/2024 Social Isolation Answer Date Recorded How often do you feel lonely or isolated from those around you? Not asked 11/26/2024 Food Risk Answer Date Recorded Within the past 12 months we worried whether our food would run out before we got money to buy more. Never true 11/26/2024 Within the past 12 months th e food we bought just didn't last and we didn't have money to get more. Never true 11/26/2024 Education Answer Date Recorded Do you think completing more education or training, like finishing a GED, going to college, or learning a trade, would be helpful for you? N/A 11/26/2024 Employment and Income Answer Date Recor ded During the last four weeks, have you been actively looking for work? No 11/26/2024 Living Situation Answer Date Recorded What is your living situation? 0 11/26/2024 Sex and Gender Information Value Date Recorded Sex Assigned at Male 06/08/2024 11:45 AM EST Legal Sex Male 10:29 AM EST Gender Identity Male 06/08/2024 11:45 AM EST Sexual Orientation Straight 06/08/2024 11 :45 AM EST Obstetrics History Last Filed Vital Signs Vital Sign Reading Time Taken Comments Blood Pressure 114/60 01/10/2025 10:13 AM EDT Pulse 94 01/10/2025 10:13 AM EDT Temperature 35.7 C (96.2 F) 01/06/2025 8:43 AM EDT Respiratory Rate 12 12/28/2024 9:30 AM EDT Oxygen Saturation 98% 01/10/2025 10:13 AM EDT Inhaled Oxygen Concentration - - Weight 82.1 kg (181 lb) 01/10/2025 10:13 AM EDT Height 167.6 cm (5' 6 ) 01/10/2025 10:13 AM EDT Body Mass Index 29.21 01/10/2025 10:13 AM EDT Plan of Treatment Upcoming Encounters Date Type Department Care Team (Late st Contact Info) Description 02/01/2025 9:10 AM EDT Office Visit [facility] - [facility] [address] [facility] [address] [place] [address] [place] [phone] Rocky Hutchinson NP [address] [place] [address] [address] [place] [phone] 02/22/2025 8:00 AM EDT Ancillary Procedure [facility] Cardiology [facility] [address] [place] [phone] 03/16/2025 8:00 AM EST Office Visit Endocrinology - [place] [address] [place] [address] Pippa Marte PA [address] [place] [address] 05/10/2025 8:45 AM EST Office Visit [facility] Hematology Oncology [address] [place] [phone] Kt Roa MD [address] [place] [address] 08/01/2025 8:30 AM EDT Office Visit [facility] Hematology Oncology [address] [place] [phone] Kt Roa MD [address] [place] [address] 01/26/2026 1:00 PM EDT Office Visit Nephrology - [place] [address] [place] [address] Bharath Gonzalez MD [address] [facility] [address] [place] [address] Health Maintenance Due Date Last Done Comments Diabetes: Annual Foot Exam 08/15/1955 Hepatitis C Screening 04/04/2022 Lung Cancer Screening (Low Dose CT) 01/09/2023 01/09/2022, 01/07/2021 COVID-19 Vaccine ( season) 2024 04/07/2023, 03/05/2022, 04/18/2021, Additional history exists Influenza Vaccine (#1) 2024 , 12/21/2022, 03/05/2022, Additional history exists Diabetes: Annual Urine Albumin-Creatinine Ratio (uACR) 03/16/2025 03/16/2024 Falls Risk Assessment 03/23/2025 03/23/2024 Medicare Annual Wellness Visit 03/23/2025 03/23/2024 Diabetes: Blood Sugar Control Test (HGBA1C) 06/27/2025 12/28/2024, 08/25/2024, 03/16/2024, Additional history exists Diabetes: Annual Retina Eye Exam 11/15/2025 11/15/2024 Social Influencers of Health Screening 11/26/2025 11/26/2024 Diabetes: Annual GFR (Glomerular Filtration Rate) 11/29/2025 11/29/2024, 10/14/2024, 06/10/2024, Additional history exists Hypertension/CHF/CAD Annual BMP Blood Test 11/29/2025 11/29/2024, 10/14/2024, 06/10/2024, Additional history exists DTaP,Tdap,and Td Vaccines (4 - Td or Tdap) 05/13/2028 05/13/2018, 11/25/2007, 08/26/1997, Additional history exists Cholesterol Screening (Lipid Panel) 03/23/2029 03/23/2024 Pneumococcal Vaccine: 50+ Years Completed 01/17/2021, 08/31/2014, 12/20/2010, Additional history exists RSV Immunization Adult Patients Completed 04/07/2023 Zoster Vaccines Completed 04/07/2023, 11/27, 01/09/2012 Depression Screening Completed 12/27/2024 HIB Vaccines Aged Out No longer eligi [...] Date/Time Associated Diagnosis Comments ECG 12-LEAD Routine 01/10/2025 10:55 AM EDT LBBB (left bundle branch block) TRANSTHORACIC ECHOCARDIOGRAM (TTE) COMPLETE W/ CONTRAST Routine 01/04/2025 9:49 AM EDT Coronary artery disease due to lipid rich plaque Pericardial effusion ECG 12-LEAD Routine 12/31/2024 1:40 PM EDT Coronary artery disease due to lipid rich plaque HEMOGLOBIN A1C Routine 12/28/2024 10:28 AM EDT Type 2 diabetes mellitus with stage 3a chronic kidney disease, without long-term current use of insulin (CMS/HCC V24, CMS/HCC V28) TRANSTHORACIC ECHOCARDIOGRAM (TTE) LIMITED W/ COLOR FLOW & CONTRAST Routine 12/21/2024 9:12 AM EDT Pericardial effusion CBC WITH AUTO DIFFERENTIAL Routine 11/29/2024 10:33 AM EDT Hairy cell leukemia, in remission (CMS/HCC V24, CMS/HCC V28) COMPREHENSIVE METABOLIC PANEL Routine 11/29/2024 10:33 AM EDT Hairy cell leukemia, in remission (CMS/HCC V24, CMS/HCC V28) SEDIMENTATION RATE Routine 11/29/2024 10 :33 AM EDT Hairy cell leukemia, in remission (CMS/HCC V24, CMS/HCC V28) BETA 2 MICROGLOBULIN, SERUM Routine 11/29/2024 10:33 AM EDT Hairy cell leukemia, in remission (CMS/HCC V24, CMS/HCC V28) LACTATE DEHYDROGENASE Routine 11/29/2024 10:33 AM EDT Hairy cell leukemia, in remission (CMS/HCC V24, CMS/HCC V28) CBC AND DIFFERENTIAL Routine 11/29/2024 10:33 AM EDT Hairy cell leukemia, in remission (CMS/HCC V24, CMS/HCC V28) CT CHEST WO CONTRAST STAT 11/17/2024 7:07 AM EDT Pericardial effusion EXTERNAL DIABETIC RETINA EYE EXAM 11/15/2024 ECG 12-LEAD Routine 10/25/2024 4:12 PM EDT Coronary artery disease involving ute coronary artery of ute heart without angina pectoris Primary hypertension Hypercholesterolem ia LIPID PANEL WITH REFLEX TO DIRECT LDL Routine 03/23/2024 12:11 PM EST Hypercholesterolem ia MICROALBUMIN CREATININE URINE RATIO Routine 03/16/2024 8:40 AM EST Stage 3 chronic kidney disease ([facility] V24, [facility]/HCC V28) Type 2 diabetes mellitus (CMS/HCC V24, CMS/HCC V28) CT LUNG SCREENING LOW DOSE Routine 01/09/2022 3:31 PM EDT Personal history of nicotine dependence from Last 3 Months or Most Recently Relevant to Health Maintenance Results * ECG 12 lead (01/10/2025 10:55 AM EDT) Only the most recent of3 resultswithin the time period is included. Ventricular Rate ECG 93 BPM GEMUSE Atrial Rate 93 BPM GEMUSE P-R Interval 170 ms GEMUSE QRS Duration 154 ms GEMUSE Q-T Interval 416 ms GEMUSE QTc 517 ms GEMUSE P Wave [place] 56 degrees GEMUSE R [place] 55 degrees GEMUSE T [place] -170 degrees GEMUSE ECG Interpretation Normal sinus rhythm Left bundle branch block Abnormal ECG When compared with ECG of 31-DEC-2024 13:02, No significant change was found Confirmed by Marlon PEDERSEN, KOLE ([id number]) on 01/17/2025 7:50:52 AM GEMUSE 01/10/2025 10:2 3 AM EDT 01/17/2025 7:50 AM EDT us Kole Pedersen MD ECG ORDERABLES Edited Result - Final GEMUSE * (ABNORMAL) TRANSTHORACIC ECHOCARDIOGRAM (TTE) COMPLETE W/ CONTRAST (01/04/2025 9:49 AM EDT) Left Atrium Minor [place] 6.2 cm CV PACS Left Atrium Major [place] 5.8 cm CV PACS LA Area Sys (A2C) 20 cm2 CV PACS LA Area Sys (A4C) 15 cm2 CV PACS LA Volume (BP) 42 mL CV PACS RA Area 13.0 cm2 CV PACS RA 2D Volume 30 mL CV PACS AV Mean Gradient 8 mmHg CV PACS Ao VTI 35.7 cm CV PACS AV Peak Sim 1.9 m/s CV PACS AV Peak Gradient 14 mmHg CV PACS AV Area Continuity Equation 1.3 cm2 CV PACS AV Area Peak Velocity 1.3 cm2 CV PACS Ascending Aorta 3.2 cm CV PACS LVOT Diameter 2.0 cm CV PACS LVOT Mean Grad 1 mmHg CV PACS LVOT Peak VTI 14.9 cm CV PACS LVOT Mean Sim 0.5 m/s CV PACS LVOT Peak Sim 0.8 m/s CV PACS LVOT Peak Gradient 3 mmHg CV PACS MV E' Tissue Velocity Lateral 6 cm/s CV PACS MV E' Tissue Velocity Septal 8 cm/s CV PACS LVOT Area 3.1 cm2 CV PACS LVOT Stroke Volume 47 mL CV PACS MV Peak E Sim 1.50 m/s CV PACS PV Acceleration Time 71 ms CV PACS PV Acceleration Time 71 ms CV PACS RV Diastolic Basal Dimension 3.7 2.5 - 4.1 cm CV PACS RV S' 6 cm/s CV PACS TAPSE 11 mm CV PACS TR Peak Velocity 2.30 m/s CV PACS TR Peak Gradient 21 mmHg CV PACS E/E' Ratio Septal 19 CV PACS E/E' Ratio Averaged 22 CV PACS LVOT Stroke Index 24 mL/m2 CV PACS LVOT:AV VTI Index 0.42 CV PACS Ascending Aorta Index 1.66 cm/m2 CV PACS LVOT flow 157 mL/s CV PACS RA 2D Volume Index 16 18 - 32 mL/m2 CV PACS KIMBERLY Index (VTI) 0.68 cm2/m2 CV PACS KIMBERLY Index (Pk Sim) 0.67 cm2/m2 CV PACS AV Velocity Ratio 0.42 CV PACS E/E' Ratio Lateral 25 CV PACS LA Volume Index (BP) 22 mL/m2 CV PACS BSA 1.97 m2 CV PACS RV Free Wall Peak S' 6 cm/s CV PACS RA Major [place] 4.8 cm CV PACS RA Major [place] Index 2.5 2.1 - 2.7 cm/m2 CV PACS AV Area 2D 1.3 cm2 CV PACS KIMBERLY Index (2D) 0.67 cm2/m2 CV PACS AV Area Index 0.7 CV PACS LVIDD 3.3(A) 4.2 - 5.8 cm CV PACS LVIDD Index 1.71 cm/m2 CV PACS LVIDS 3.1 2.5 - 4.0 cm CV PACS LVIDS Index 1.61 cm/m2 CV PACS LVPWD 1.1(A) 0.6 - 1.0 cm CV PACS IVSD 1.1(A) 0.6 - 1.0 cm CV PACS LV Mass 2D 109 96 - 200 g CV PACS LV Mass Index 2D 57 50 - 102 g/m2 CV PACS Relative Wall Thickness ratio 0.67(A) 0.24 - 0.42 CV PACS FS 6 % CV PACS Right Ventricular Peak Systolic Pressure 24 mmHg CV PACS Est. RA Pressure 3 mmHg CV PACS Anatomical Region Laterality Modality Ultrasound Narrative 01/13/2025 9:05 AM EDT Left ventricle cavity size is normal. Left ventricular systolic function is low normal with an ejection fraction of 50-55%. Left ventricle mild hypertrophy. Right ventricle cavity is normal. Right ventricular systolic function is moderately reduced. The atria are normal in size. #26mm S3 TAVR is well seated with normal function. There is trace regurgitation. Mean gradient is 8mmHg. Small pericardial effusion. Compared to November, there is now a small effusion. Left Ventricle Left ventricle cavity size is normal. There is mild hypertrophy. Systolic function is low normal with an ejection fraction of 50-55%. Abnormal septal bounce with basal septal hypokinesis. No obvious other wall motion abnormalities. Unable to assess diastolic function. Right Ventricle Right ventricle cavity appears normal. Systolic function is reduced. Left Atrium Left atrium cavity size is normal. Right Atrium Right atrium cavity is normal. IVC/SVC Inferior vena cava structure is normal. RA pressures is estimated to be 3 mmHg (IVC diameter <21 mm and decreases >50% during inspiration). Mitral Valve The leaflets are mildly thickened. There is annular calcification. There is trace regurgitation. There is no evidence of mitral valve stenosis. Tricuspid Valve The leaflets exhibit normal excursion. There is trace to mild regurgitation. The RVSP is estimated at 24 mmHg. Aortic Valve #26mm S3 TAVR is well seated in place. There is trace regurgitation. Mean gradient is 8mmHg. Pulmonic Valve Pulmonic valve structure is normal. There is trace pulmonic valve regurgitation. Ascending Aorta The aorta appears normal in size. Pericardium There is a fat pad. There is a small pericardial effusion. Study Details Overall the study quality was technically difficult. Definity contrast was given to enhance imaging. Study was difficult due to: poor endocardial visualization and poor acoustic windows. us Catrachito Chapman NP CV ECHO PROCEDURES Chad al Result * Hemoglobin A1c (12/28/2024 10:28 AM EDT) Hemoglobin A1C 5.8 <6.5 % LAB CHEMISTRY METHOD 12/28/2024 2:21 PM EDT [facility] Mean Bld Glu Estim. 120 mg/dL LAB CHEMISTRY METHOD 12/28/2024 2:21 PM EDT [facility] Blood Venous blood specimen / Unknown Venipuncture / Unknown 12/28/2024 10:28 AM EDT 12/28/2024 10:28 AM EDT us Ne [facility] LAB BLOOD ORDERABLES Final Re sult [facility] [address] [place] [address], [place] [phone] * (ABNORMAL) TRANSTHORACIC ECHOCARDIOGRAM (TTE) LIMITED W/ COLOR FLOW & CONTRAST (12/21/2024 9:12AM EDT) [facility] Left Atrium Minor [place] 5.4 cm CV PACS Left Atrium Major [place] 4.7 cm CV PACS LA Area Sys (A2C) 15 cm2 CV PACS LA Area Sys (A4C) 18 cm2 CV PACS LA Volume (BP) 46 mL CV PACS RA Area 12.5 cm2 CV PACS RA 2D Volume 30 mL CV PACS AV Mean Gradient 12 mmHg CV PACS AV Mean Gradient 12 mmHg CV PACS Ao VTI 48.9 cm CV PACS AV Peak Sim 2.3 m/s CV PACS AV Peak Gradient 22 mmHg CV PACS AV Area Continuity Equation 1.6 cm2 CV PACS AV Area Peak Velocity 1.8 cm2 CV PACS Aortic Root 3.0 cm CV PACS Ascending Aorta 3.2 cm CV PACS IVC Proximal 1.1 cm CV PACS IVC Proximal 0.4 cm CV PACS IVSD 1.2(A) 0.6 - 1.0 cm CV PACS LVIDD 4.7 4.2 - 5.8 cm CV PACS LVIDS 3.2 2.5 - 4.0 cm CV PACS LVOT Diameter 2.1 cm CV PACS LVOT Mean Sim 0.8 m/s CV PACS LVOT Mean Grad 3 mmHg CV PACS LVOT Peak VTI 23.2 cm CV PACS LVOT Peak Sim 1.2 m/s CV PACS LVOT Peak Gradient 6 mmHg CV PACS LVPWD 1.2(A) 0.6 - 1.0 cm CV PACS MV E' Tissue Velocity Lateral 9 cm/s CV PACS MV E' Tissue Velocity Septal 4 cm/s CV PACS LVOT Area 3.5 cm2 CV PACS LVOT Stroke Volume 80 mL CV PACS E Wave Deceleration Time 144 119 - 242 ms CV PACS MV Peak A Sim 1.29 m/s CV PACS MV Peak E Sim 0.86 m/s CV PACS PV Acceleration Time 74 ms CV PACS PV Acceleration Time 74 ms CV PACS RV Diastolic Basal Dimension 3.4 2.5 - 4.1 cm CV PACS RV S' 7 cm/s CV PACS TAPSE 15 mm CV PACS E/E' Ratio Septal 22 CV PACS E/E' Ratio Averaged 16 CV PACS Relative Wall Thickness ratio 0.51 CV PACS LVOT:AV VTI Index 0.47 CV PACS FS 32 % CV PACS LV Mass 2D 212 g CV PACS LVOT flow 277 mL/s CV PACS AV Velocity Ratio 0.52 CV PACS E/A Ratio 0.7 CV PACS E/E' Ratio Lateral 10 CV PACS BSA 1.98 m2 CV PACS LA Volume Index (BP) 24 mL/m2 CV PACS LVIDD Index 2.44 cm/m2 CV PACS LVIDS Index 1.66 cm/m2 CV PACS LV Mass Index 2D 110(A) 50 - 102 g/m2 CV PACS LVOT Stroke Index 41 mL/m2 CV PACS RA 2D Volume Index 16(A) 18 - 32 mL/m2 CV PACS KIMBERLY Index (VTI) 0.85 cm2/m2 CV PACS KIMBERLY Index (Pk Sim) 0.93 cm2/m2 CV PACS Aortic Root Index 1.55 cm/m2 CV PACS Ascending Aorta Index 1.66 cm/m2 CV PACS Anatomical Region Laterality Modality Ultrasound Narrative 12/29/2024 3:04 PM EDT Image quality is very poor. There is septal contraction abnormality due to a left bundle branch block. Systolic function is grossly normal. RV function appears to be normal He atria appear to be normal No significant valvular disease seen. No obvious pericardial effusion but image quality is poor. On October 15, 2024 1 could see a small pericardial effusion on the apical views over the RV, LV juncture and some of it was echo bright. That is no longer visible. Left Ventricle Left ventricle was not well visualized. Left ventricle cavity size is normal. There is mild concentric hypertrophy. Systolic function is normal with an ejection fraction of 55-60%. Difficult to tell if there are any wall motion abnormalities because of poor image quality. Indeterminate diastolic function. There is abnormal septal motion consistent with left bundle branch block. Right Ventricle Right ventricle cavity appears normal. Systolic function is mildly reduced. Left Atrium Left atrium cavity size is normal. Right Atrium Right atrium cavity is normal. IVC/SVC Inferior vena cava structure is normal. RA pressures is estimated to be 3 mmHg (IVC diameter <21 mm and decreases >50% during inspiration). Mitral Valve The leaflets are mildly thickened. There is mild to moderate posterior annular calcification. There is trace regurgitation. There is no evidence of mitral valve stenosis. Tricuspid Valve Tricuspid valve structure is normal. There is trace regurgitation. There is no significant tricuspid valve stenosis. Cannot assess RVSP. Aortic Valve The aortic valve is trileaflet. The leaflets are not thickened and exhibit normal excursion. The valve has been surgically replaced. There is a 26 mm YANETH 3 Ultra bioprosthetic valve. The prosthetic valve appears well-seated. Mean PG 12mmHg. AT 95ms There is no regurgitation or stenosis. Pulmonic Valve The pulmonic valve was not well visualized. No significant pulmonic valve regurgitation. No significant pulmonary valve stenosis noted. Ascending Aorta The aorta appears normal in size. Pericardium Pericardium appears normal. There is a trivial pericardial effusion near the right atrium. Study Details Overall the study quality was technically difficult. The underlying ECG rhythm was bundle branch block. Definity contrast was given to enhance imaging. Study was difficult due to: poor endocardial visualization and patient body habitus. us Oumar Carroll MD CV ECHO PROCEDURES Final Result * (ABNORMAL) CBC auto differential (11/29/2024 10:33 AM EDT) WBC 3.7(L) 4.8 - 10.8 K/mcL LAB HEMETOLOGY METHOD 11/29/2024 11:43 AM [facility] RBC 4.70 4.50 - 5.50 M/mcL LAB HEMETOLOGY METHOD 11/29/2024 11:43 AM [facility] Hemoglobin 13.5 13.5 - 17.5 g/dL LAB HEMETOLOGY METHOD 11/29/2024 11:43 AM [facility] Hematocrit 42.6 42.0 - 54.0 % LAB HEMETOLOGY METHOD 11/29/2024 11:43 AM [facility] MCV 90.1 79.0 - 98.0 FL LAB HEMETOLOGY METHOD 11/29/2024 11:43 AM [facility] MCH 28.5 27.0 - 32.0 pcg LAB HEMETOLOGY METHOD 11/29/2024 11:43 AM [facility] MCHC 31.7(L) 32.0 - 37.0 g/dL LAB HEMETOLOGY METHOD 11/29/2024 11:43 AM [facility] RDW 14.1 11.0 - 15.0 % LAB HEMETOLOGY METHOD 11/29/2024 11:43 AM [facility] Platelets 126(L) 130 - 400 K/mcL LAB HEMETOLOGY METHOD 11/29/2024 11:43 AM [facility] MPV 9.4 7.0 - 11.0 FL LAB HEMETOLOGY METHOD 11/29/2024 11:43 AM [facility] NRBC 0.0 <1.0 % LAB HEMETOLOGY METHOD 11/29/2024 11:43 AM [facility] NRBC Absolute 0.00 <0.10 K/mcL LAB HEMETOLOGY METHOD 11/29/2024 11:43 AM [facility] Neutrophils Relative 57.1 % LAB HEMETOLOGY METHOD 11/29/2024 11:43 AM [facility] Lymphocytes Relative 27.0 % LAB HEMETOLOGY METHOD 11/29/2024 11:43 AM [facility] Monocytes Relative 11.0 % LAB HEMETOLOGY METHOD 11/29/2024 11:43 AM [facility] Eosinophils Relative 4.3 % LAB HEMETOLOGY METHOD 11/29/2024 11:43 AM [facility] Basophils Relative 0.3 % LAB HEMETOLOGY METHOD 11/29/2024 11:43 AM [facility] Immature Granulocytes Relative 0.3 % LAB HEMETOLOGY METHOD 11/29/2024 11:43 AM [facility] Neutrophils Absolute 2.14 1.50 - 7.00 K/mcL LAB HEMETOLOGY METHOD 11/29/2024 11:43 AM [facility] Lymphocytes Absolute 1.01 1.00 - 5.00 K/mcL LAB HEMETOLOGY METHOD 11/29/2024 11:43 AM [facility] Monocytes Absolute 0.41 0.20 - 1.00 K/mcL LAB HEMETOLOGY METHOD 11/29/2024 11:43 AM [facility] Eosinophils Absolute 0.16 0.00 - 0.50 K/mcL LAB HEMETOLOGY METHOD 11/29/2024 11:43 AM [facility] Basophils Absolute 0.01 0.00 - 0.20 K/mcL LAB HEMETOLOGY METHOD 11/29/2024 11:43 AM [facility] Immature Granulocytes Absolute 0.01 0.00 - 0.03 K/mcL LAB HEMETOLOGY METHOD 11/29/2024 11:43 AM [facility] Blood Venous blood specimen / Unknown Venipuncture / Unknown 11/29/2024 10:33 AM EDT 11/29/2024 11:21 AM EDT Kt Roa MD LAB BLOOD ORDERABLES Final R esult Performing Organization Address City/[facility]/ZIP Co de Phone Number [facility] [address] [place] [address], [place] [phone] * Sedimentation rate (11/29/2024 10:33 AM EDT) [facility] Sed Rate 16 0 - 20 mm/hr LAB HEMETOLOGY METHOD 11/29/2024 11:31 AM EDT [facility] Blood Venous blood specimen / Unknown Venipuncture / Unknown 11/29/2024 10:33 AM EDT 11/29/2024 11:21 AM EDT Kt Roa MD LAB BLOOD ORDERABLES Final R esult Performing Organization Address City/[facility]/ZIP Co de Phone Number [facility] [address] [place] [address], [place] [phone] * Lactate dehydrogenase (11/29/2024 10:33 AM EDT) [facility] LDH 206 120 - 246 unit/L LAB CHEMISTRY METHOD 11/29/2024 2:52 PM EDT [facility] Blood Venous blood specimen / Unknown Venipuncture / Unknown 11/29/2024 10:33 AM EDT 11/29/2024 11:21 AM EDT Kt Roa MD LAB BLOOD ORDERABLES Final R esult Performing Organization Address City/[facility]/ZIP Co de Phone Number [facility] [address] [place] [address], [place] [phone] * (ABNORMAL) Beta 2 microglobulin, serum (11/29/2024 10:33 AM EDT) [facility] Beta-2 Microglobulin 6.5(H) 0.7 - 1.8 mg/L LAB CHEMISTRY METHOD 11/29/2024 2:52 PM [facility] Blood Venous blood specimen / Unknown Venipuncture / Unknown 11/29/2024 10:33 AM EDT 11/29/2024 11:21 AM EDT us Kt Roa MD LAB BLOOD ORDERABLES Final R esult [facility] [address] [place] [address], [place] [phone] * (ABNORMAL) Comprehensive metabolic panel (11/29/2024 10:33 AM EDT) Sodium 141 133 - 145 mmol/L LAB CHEMISTRY METHOD 11/29/2024 2:52 PM [facility] Potassium 4.5 3.5 - 5.5 mmol/L LAB CHEMISTRY METHOD 11/29/2024 2:52 PM [facility] Chloride 109 96 - 110 mmol/L LAB CHEMISTRY METHOD 11/29/2024 2:52 PM [facility] CO2 26 21 - 32 mmol/L LAB CHEMISTRY METHOD 11/29/2024 2:52 PM [facility] Anion Gap 6 3 - 11 LAB CHEMISTRY METHOD 11/29/2024 2:52 PM [facility] Glucose 88 70 - 100 mg/dL LAB CHEMISTRY METHOD 11/29/2024 2:52 PM [facility] BUN 30(H) 5 - 25 mg/dL LAB CHEMISTRY METHOD 11/29/2024 2:52 PM [facility] Creatinine 1.48(H) 0.70 - 1.30 mg/dL LAB CHEMISTRY METHOD 11/29/2024 2:52 PM [facility] eGFR 48(L) >=60 mL/min/1. 73m2 LAB CHEMISTRY METHOD 11/29/2024 2:52 PM EDT [facility] Comment:Calculation based on the Chronic Kidney Disease Epidemiology Collaboration (CKD-EPI) equation refit without adjustment for race. BUN/Creatinine Ratio 20.3 LAB CHEMISTRY METHOD 11/29/2024 2:52 PM EDT [facility] Calcium 9.1 8.5 - 10.5 mg/dL LAB CHEMISTRY METHOD 11/29/2024 2:52 PM T [facility] AST (SGOT) 22 10 - 42 unit/L LAB CHEMISTRY METHOD 11/29/2024 2:52 PM [facility] ALT (SGPT) 31 10 - 60 unit/L LAB CHEMISTRY METHOD 11/29/2024 2:52 PM [facility] Alkaline Phosphatase 89 42 - 121 unit/L LAB CHEMISTRY METHOD 11/29/2024 2:52 PM [facility] Total Protein 7.4 6.0 - 8.0 g/dL LAB CHEMISTRY METHOD 11/29/2024 2:52 PM EDT [facility] Albumin 3.7 3.2 - 5.0 g/dL LAB CHEMISTRY METHOD 11/29/2024 2:52 PM [facility] Total Bilirubin 0.3 0.0 - 1.4 mg/dL LAB CHEMISTRY METHOD 11/29/2024 2:52 PM T [facility] Blood Venous blood specimen / Unknown Venipuncture / Unknown 11/29/2024 10:33 AM EDT 11/29/2024 11:21 AM EDT us Kt Roa MD LAB BLOOD ORDERABLES Final R esult [facility] [address] [place] [address], * CT Chest wo Contrast (11/17/2024 7:07 AM EDT) Anatomical Region Laterality Modality Body Computed Tomogra phy 11/17/2024 8:05 AM EDT Impressions 11/17/2024 8:23 AM EDT Large pericardial effusion without CT evidence of tamponade physiology. Moderate right pleural effusion with adjacent atelectasis. Mild emphysema. Stable benign pulmonary nodules dating back to 2021. No new or suspicious pulmonary nodules. Borderline enlarged mediastinal lymph nodes may be reactive. Splenomegaly -------- FINAL REPORT -------- Dictated By: VASU MCKENZIE Dictated Date: 11/17/2024 08:05 ET Assigned Physician: VASU MCKENZIE Reviewed and Electronically Signed By: VASU MCKENZIE Signed Date: 11/17/2024 08:23 ET Workstation ID: [id number] Transcribed By: Self Edit Transcribed Date: 11/17/2024 08:05 ET Narrative 11/17/2024 8:23 AM EDT PROCEDURE: Chest CT INDICATION: Pericardial effusion TECHNIQUE: Chest CT without contrast. Multi planar reformats were created and interpreted. The examination was performed utilizing dose reduction techniques. Total DLP 971 COMPARISON: . FINDINGS: LUNGS/PLEURA: Moderate right pleural effusion with adjacent atelectasis. Right middle lobe atelectasis. Mild emphysema. 4 mm left lower lobe nodule is stable compared to prior. 3 mm subpleural nodule in the right lower lobe is stable compared to prior. 3 mm right lower lobe nodule near the major fissure is unchanged. 4 mm nodule in the right lower lobe is stable compared to prior. No new or suspicious pulmonary nodules. No pleural effusion MEDIASTINUM: Thyroid gland is within normal limits. Multiple prominent mediastinal lymph nodes are new compared to prior and possibly reactive. For example anterior mediastinal node measures 10 mm as compared to 5 mm prior. Aortic valve prosthesis. Moderate coronary artery calcifications. Large pericardial effusion. No mass effect upon the atria or ventricles. No hilar lymphadenopathy. Esophagus is normal. CHEST WALL: No axillary lymphadenopathy or superficial hematoma. UPPER ABDOMEN:Splenomegaly. Cholelithiasis. BONES: Old healed anterior rib fracture deformities bilaterally. No acute fracture.. Procedure Note Vasu Mckenzie MD - 11/17/2024 PROCEDURE: Chest CT INDICATION: Pericardial effusion TECHNIQUE: Chest CT without contrast. Multi planar reformats were createdand interpreted. The examination was performed utilizing dose reductiontechniques. Total DLP 971 COMPARISON: . FINDINGS: LUNGS/PLEURA: Moderate right pleural effusion with adjacent atelectasis.Right middle lobe atelectasis. Mild emphysema. 4 mm left lower lobenodule is stable compared to prior. 3 mm subpleural nodule in the rightlower lobe is stable compared to prior. 3 mm right lower lobe nodule nearthe major fissure is unchanged. 4 mm nodule in the right lower lobe isstable compared to prior. No new or suspicious pulmonary nodules. Nopleural effusion MEDIASTINUM: Thyroid gland is within normal limits. Multiple prominentmediastinal lymph nodes are new compared to prior and possibly reactive.For example anterior mediastinal node measures 10 mm as compared to 5 mmprior. Aortic valve prosthesis. Moderate coronary artery calcifications.Large pericardial effusion. No mass effect upon the atria or ventricles.No hilar lymphadenopathy. Esophagus is normal. CHEST WALL: No axillary lymphadenopathy or superficial hematoma. UPPER ABDOMEN:Splenomegaly. Cholelithiasis. BONES: Old healed anterior rib fracture deformities bilaterally. No acutefracture.. IMPRESSION: Large pericardial effusion without CT evidence of tamponade physiology. Moderate right pleural effusion with adjacent atelectasis. Mild emphysema. Stable benign pulmonary nodules dating back to 2021. Nonew or suspicious pulmonary nodules. Borderline enlarged mediastinal lymph nodes may be reactive. Splenomegaly -------- FINAL REPORT -------- Dictated By: VASU MCKENZIE Dictated Date: 11/17/2024 08:05 ET Assigned Physician: VASU MCKENZIE Reviewed and Electronically Signed By: VASU MCKENZIE Signed Date: 11/17/2024 08:23 ET Workstation ID: [id number] Transcribed By: Self Edit Transcribed Date: 11/17/2024 08:05 ET Catrachito Chapman NP IMG CT PROCEDURES Nolvia l Result * External Diabetic Retina Eye Exam Report (11/15/2024) Anatomical Region Laterality Modality Ultrasound us Provider [facility] IMG US PROCEDURES Final Result * Lipid panel with reflex to direct LDL (03/23/2024 12:11 PM EST) Cholesterol 133 0 - 200 mg/dL LAB CHEMISTRY METHOD 03/23/2024 2:40 PM EST [facility] Triglycerides 123 0 - 150 mg/dL LAB CHEMISTRY METHOD 03/23/2024 2:40 PM [facility] HDL 52 >=40 mg/dL LAB CHEMISTRY METHOD 03/23/2024 2:40 PM [facility] LDL Calculated 56 0 - 100 mg/dL LAB CHEMISTRY METHOD 03/23/2024 2:40 PM EST [facility] VLDL Cholesterol Brad 24.6 mg/dL LAB CHEMISTRY METHOD 03/23/2024 2:40 PM EST [facility] Non HDL Chol. (LDL+VLDL) 81 <145 mg/dL LAB CHEMISTRY METHOD 03/23/2024 2:40 PM EST [facility] Chol/HDL Ratio 2.6 0.0 - 4.4 LAB CHEMISTRY METHOD 03/23/2024 2:40 PM EST [facility] Blood Venous blood specimen / Unknown Venipuncture / Unknown 03/23/2024 12:11 PM EST 03/23/2024 12:11 PM EST us Sharri Mills MD LAB BLOOD ORDERABLES Final Resul t [facility] [address] [place] [address], * (ABNORMAL) Microalbumin creatinine urine ratio (03/16/2024 8:40 AM EST) Creatinine, Urine 235.0 mg/dL LAB CHEMISTRY METHOD 03/16/2024 11:01 AM [facility] Microalb, Ur 790.0(H) 0.0 - 29.0 mg/L LAB CHEMISTRY METHOD 03/16/2024 11:01 AM [facility] Microalb/Crea t Ratio 336(H) <30 mg/g creat LAB CHEMISTRY METHOD 03/16/2024 11:01 AM EST [facility] Urine Urine specimen obtained by clean catch procedure / Unknown Non-blood Collection / Unknown 03/16/2024 8:40 AM EST 03/16/2024 8:40 AM EST us Bharath Gonzalez MD LAB URINE ORDERABLES Final Res ult [facility] [address] [place] [address], * CT LUNG SCREENING LOW DOSE (01/09/2022 3:31 PM EDT) Anatomical Region Laterality Modality Computed Tomogra phy 01/09/2022 9:31 AM EDT Narrative 01/09/2022 3:31 PM EDT [facility] Diagnostic Imaging Department [address] [place] [address] Patient: BILLIE BALDERAS/Age/Sex: 1945 - 76 - M Unit#: [id number] [facility]onic/Ordering Site: [facility] Ordering Physician: ISAIAS MARTIN MD CT Lung Screening Low Dose - 01/09/22937 Indication: 120 pack-year smoking history (2pack/day for 60 years), current smoker Technique: Low-dose CT scan of the chest obtained as a lung cancer screening study. Multiplanar reformatted images were obtained. Scanner: Synchrony Dose reduction technique: ASIR (Adaptive statistical iterative [...] and thoracic aorta. Lungs/airways: Mild emphysematous disease. Unchanged 3 mm noncalcified nodule in the left upper lobe (series 3 image 177). Similar-appearing 3 mm noncalcified nodule in the right lower lobe (image 106). Subpleural 3 mm nodular density in the superior segment of the right lower lobe noted (image 95). Persistent 4 mm nodule in the right lower lobe also noted (image 129). No interval development of suspicious pulmonary nodule. The trachea and central bronchi are widely patent. No focal confluent infiltrates are seen. No pleural effusion or pneumothorax. Upper abdomen: The visualized portions of the upper abdomen are otherwise grossly unremarkable on these noncontrast images. Osseous structures: No suspicious osseous lesions are identified. There are degenerative changes of the thoracic spine. Healed bilateral rib fractures. Impression: No interval development of suspicious pulmonary nodule. Lung RADS 2, recommend low-dose screening chest CT in 12 months. G0297, G9637, G9557, G9551 Dictating Physician: OTTO HOPPER MD Electronically Signed by: OTTO HOPPER MD Dic Date/Time: 01/09/22 1511 Sign date/Time: 01/09/22 1531 Procedure Note Otto Hopper MD - 04/17/2022 [facility] Diagnostic Imaging Department [address] [place] [address] Patient: BILLIE BALDERAS /Age/Sex: 1945 - 76 - M Unit#: [id number] Location/Status: SPDICATLS/REG CLI Mnemonic/Ordering Site: [facility] Ordering Physician: ISAIAS MARTIN MD CT Lung Screening Low Dose - 01/09/22937 Indication: 120 pack-year smoking history (2pack/day for 60 years),current smoker Technique: Low-dose CT scan of the chest obtained as a lung cancerscreening study. Multiplanar reformatted images were obtained. Scanner: Synchrony Dose reduction technique: ASIR (Adaptive statistical iterativereconstruction) [...] in the right lower lobe also noted ([id number]). No interval development of suspicious pulmonary nodule. [...] Recently Relevant to Health Maintenance Insurance MEDICARE [facility] [address] [place] [address] Care Teams Operations Specialist Relationship Specialty Start Date End Date Sharri Mills MD [address] [place] [address] [facility] - General 11/23/01
--- OUTSIDE RECORDS SUMMARY | 2025-01-17 14:40 | XMS_ITS | Clinical Summary ---
Author Organization [facility] Address [address] [place] [address] Care Team Providers Care Ged Teacher Name Role Phone Sharri Mills MD Primary Care Provider [phone] Allergies No known active allergies Medications Medication [...] age to complete this topic Care Teams Ged Teacher Relationship Specialty Start Date End Date Sharri Mills MD PCP - General Internal Medicine 07/09/19
--- OUTSIDE RECORDS SUMMARY | 2025-01-17 14:40 | XMS_ITS | Encounter Summary ---
Author Organization [facility] Address [address] [place] [address] Care Team Providers Care Metal Rolling Mill Operator Name Role Phone Sharri Mills MD Primary Care Provider [phone] Reason for Referral * Imaging (Routine) - Authorized Specialty Diagnoses / Procedures Referred By Contac t Referred To Contact Cardiology Diagnoses Pericardial effusion Procedures Transthoracic echocardiogram (TTE) limited with PRN contrast, bubble, strain, and 3D order panel ME TTE W 2D IMAGE FOLLOW-UP OR LIMITED STUDY ME ECHOCARDIOGRAPY DOPPLER FOLLOW UP/LIMITED STUDY ME ECHOCARDIOGRAPHY DOPPLER COLOR FLOW MAPPING ME TAVIA 2D FOLLOWUP/LIMITED W/CONTRAST OR W/O & W/CONTRAST Tiffany Chapman NP [address] [place] [phone] [facility] Referral ID Status Reason Start Date Expiration Date V isits Requested Visits Authorized [id number] Authorized 01/13/2025 01/13/2026 1 1 Encounter Details Date Type Department Care Team (Late st Contact Info) Description 01/13/2025 Telephone [facility] - [address] [place] [address] Tiffany Chapman NP [address] [place] [address] [place] [phone] Social History Tobacco Use Types Packs/Day Years Used Date Smoking Tobacco: Every Day Cigarettes 1 64.7 Started: 1960 Smokeless Tobacco: Never Alcohol Use Standard Drinks/Week Comments Not Currently [...] Record ed Within the last 3 months, ho w many times did you visit the emergency [...] as of this encounter Progress Notes * Liza Nga - 01/17/2025 12:35 PM EDT Echo scheduled for 02/22/25 at 8:30am, our next available around expected time- frame. I called patient and left message on machine, also mailed reminder. * Tiffany Chapman NP - 01/13/2025 10:31 AM EDT I spoke to the patient's regarding his echocardiogram. He does have a small effusion. We will update a limited echocardiogram in approximately 4 weeks to ensure that the effusion does not continue to grow. Patient does have a follow- up appointment with Kelton Vizcarra on February 01 post TAVR follow-up. Patient is feeling well at this time documented in this encounter Plan of Treatment Upcoming Encounters Date Type Department Care Team (Late st Contact Info) Description 02/01/2025 9:10 AM EDT Office Visit [facility] Cardiology [facility] [address] [place] [address] Dr D[address]a [address] [place] [phone] Rocky Hutchinson NP [address] [place] [address] Dr Braxton [address] [place] [address] 02/22/2025 8:00 AM EDT Ancillary Procedure [facility] Cardiology [facility] - [address] [place] [phone] 03/16/2025 8:00 AM EST Office Visit Endocrinology - [facility] [address] [place] [address] Pippa Marte PA [address] [place] [address] 05/10/2025 8:45 AM EST Office Visit [facility] Hematology Oncology [address] [place] [phone] Kt Roa MD [address] [place] [address] 08/01/2025 8:30 AM EDT Office Visit [facility] Hematology Oncology [address] [place] [phone] tK Roa MD [address] [place] [address] 01/26/2026 1:00 PM EDT Office Visit Nephrology [facility] [address] [place], [place] [phone] [place] [address] [place] [phone] Scheduled Orders Name Type Priority Associated Diagnoses Order Schedule Transthoracic echocardiogram (TTE) limited with PRN contrast, bubble, strain, and 3D order panel Echocardiography Routine Pericardial effusion Expected: 02/12/2025, Expires: 01/13/2026 documented as of this encounter Visit Diagnoses Diagnosis Pericardial effusion- Primary Unspecified disease of pericardium documented in this encounter Additional Health Concerns Assessment Noted Time PHQ-9 Depression Total Score: 0 12/28/19 25 9:20 PM EDT A fall risk assessment has been complete d for the patient 03/19/2024 1:13 PM EST documented as of this encounter Care Teams Metal Rolling Mill Operator Relationship Specialty Start Date End Date Sharri Mills MD [address] [place] [address] PCP - General 11/23/01 documented as of this encounter
--- NOTE | 2025-03-02 13:02 | HO.ANESPROP2 ---
HPI - Anesthesia Eval Consult details Narrative: 79 yr old male for Laser Ablation Prostate w/Green Light, Insertion Suprapubic Tube H/O TAVR at [facility] 08/16/24, post procedure developed new LBBB, discharged on ASA, Zio patch. Follows PVC, last visit 02/01/25, stable, valve working well, echo updated 02/22/25, see below. *Dr. Yeboah aware pt will not interrupt ASA since <1 yr since TAVR LBBB: Present since TAVR, but without progression to high degree AV block. Not candidate for BiV ICD due to pEF on last echocardiogram CAD: Catheterization from 2024 showed patent stent with no other significant disease elsewhere.?Echocardiogram from 2024 showed preserved LV systolic function.? No anginal symptoms. Pericardial effusion: No evidence of cardiac tamponade at this time. Echocardiogram from December showed small effusion, updated on 02/22/25 below. COPD: active smoker ? ? 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 Generalized anxiety disorder COPD (chronic obstructive pulmonary disease) with emphysema Alcohol use disorder Pulmonary nodules Hairy cell leukemia Splenomegaly Aortic stenosis CAD (coronary artery disease) Nocturnal hypoxemia due to emphysema Obstructive sleep apnea (adult) (pediatric) Class 2 severe obesity with serious comorbidity and body mass index (BMI) of 35.0 to 35.9 in adult Surgical History Surgical History History of coronary angioplasty with insertion of stent Social History Social History Alcohol intake: current Alcohol intake frequency: does not drink Meds Allergies Allergy/AdvReac Type Severity Reaction Status Date / Time No Known Allergies Allergy Verified 11/05/24 10:21 Home Medications ?Medication ?Instructions ?Recorded ?Confirmed ?Last Taken ?Type dulaglutide 3 mg/0.5 mL mg subcut 07/14/24 Unknown History subcutaneous pen injector (Trulicity) insulin glargine 100 unit/mL (3 unit subcut 07/14/24 Unknown History mL) subcutaneous pen (Basaglar KwikPen U-100 Insulin) isosorbide mononitrate 30 mg mg PO 07/14/24 Unknown History tablet,extended release 24 hr lisinopril 20 mg tablet 20 mg PO DAILY 07/14/24 Unknown History omeprazole 20 mg capsule,delayed 20 mg PO DAILY 07/14/24 Unknown History release pravastatin 40 mg tablet 40 mg PO DAILY 07/14/24 Unknown History albuterol sulfate inhalation 07/26/24 Unknown History aspirin 81 mg tablet,delayed 81 mg PO DAILY 07/26/24 Unknown History release metformin 500 mg tablet 500 mg PO BID 07/26/24 Unknown History metoprolol tartrate 50 mg tablet 50 mg PO BID 07/26/24 Unknown History nitroglycerin 0.4 mg sublingual 0.4 mg sublingual Q5M PRN 07/26/24 Unknown History tablet Exam Narrative Narrative: ECHO 02/22/25 ? Left ventricle cavity size is normal. ? Right ventricular systolic function is normal. ? Trivial pericardial effusion. ? Compared to the prior echo the effusion is slightly smaller. ? TRANSTHORACIC ECHOCARDIOGRAM (TTE) COMPLETE (CONTRAST/BUBBLE/3D PRN) 01/13/2025 01/04/2025 ? Interpretation Summary ? Left ventricle cavity size is normal. Left ventricular systolic function is low normal with an ejection fraction of 50-55%. ? Left ventricle mild hypertrophy. ? Right ventricle cavity is normal. Right ventricular systolic function is moderately reduced. ? The atria are normal in size. ? #26mm S3 TAVR is well seated with normal function. There is trace regurgitation. Mean gradient is 8mmHg. ? Small pericardial effusion. ? Compared to November, there is now a small effusion EKG: Encounter Date: 01/10/25 ECG 12 lead Result Value ? Ventricular Rate ECG 93 ? Atrial Rate 93 ? P-R Interval 170 ? QRS Duration 154 ? Q-T Interval 416 ? QTc 517 ? P Wave [place] 56 ? R [place] 55 ? T [place] -170 ? ECG Interpretation ? ? ? Normal sinus rhythmLeft bundle branch blockAbnormal ECGWhen compared with ECG of 31-DEC-2024 13:02,No significant change was found
[2025-03-03 13:34] VITALS: BMI 29.4
[2025-03-07 05:59] VITALS: BP 147/68; PULSE 79; RESP 17; TEMP 36.6; O2SAT 96; BMI 28.9
[2025-03-07 06:13] LABS: Glucose, Whole Blood 131 mg/dL (60-115)
[2025-03-07] MEDS: Lactated Ringers 1,000 ML 100 ML IVCONT (06:33)
--- NOTE | 2025-03-07 07:35 | MHC.SHP ---
Pre-Procedural Eval Section A - 24 Hr Update-Section A only Date of Service: 03/07/25 The patient is an INPATIENT: No Changes since office visit: No Cold of Flu in the past 2 weeks, No New Medical Problems, No Changes in Medication and No Patient answered all questions The patient has been examined within 24 hours of the surgical procedure. The History & Physical has been completed within 30 days and I have reviewed it.: No Section B - Complete if H&P > 30 days Chief Complaint: Retention of urine, unspecified Details of Present Illness: failed multiple voiding trials. Plan for SPT placement and prostate procedure Relevant Social History: None Present Medications: see Short Stay Collaborative assessment Medical History: Significant History History of Previous Operations: No relevant previous surgery Allergies: Allergies Allergy/AdvReac Type Severity Reaction Status Date / Time No Known Allergies Allergy Verified 03/03/25 13:33 Review of Systems Sugical H&P ROS: Negative: Constitution, Cardiovascular, Respiratory, Neurological, Psychiatric, Hem-Onc, Allergic/Immunologic, Gastrointestinal, Genitourinary, Musculoskeletal, Integumentary, Endocrine and Eyes/Ears/Nose/Throat Exam Surgical H&P Exam: Normal: HEENT, Normal: Heart, Normal: Lungs, Normal: Extremities, Normal: Abdomen, Normal: Skin and Normal: Neurological Plan Diagnosis/Plan: Unchanged (Greenlight prostate plus SPt placement) I have reviewed the history and physical and performed a pertinent physical examination on my patient. No changes have occurred unless specified. Time Spent With Patient Time: Total time managing care of this patient today ____ minutes.
--- NOTE | 2025-03-07 08:48 | W.PM.OPN ---
Operative Note Operative Note Date of Service: 03/07/25 Narrative: PreOperative Diagnosis: Bladder outlet obstruction with urinary retention Post Operative Diagnosis: Bladder outlet obstruction with urinary retention Procedure: 1) cystoscopy with suprapubic tube placement 2) GreenLight Laser Enucleation of the prostate CPT 92767 Surgeon: Dr Shaun Ybeoah Anesthesia: General History of bladder outlet obstruction. Previously treated with alpha-meng and finasteride. Prior episode of retention and passed voiding trial. Recently recurrent retention unable to pass voiding trial. Recommendation for GreenLight laser prostatectomy with covered suprapubic tube. Risks and benefits particularly damage to adjacent organs discussed. Procedure: After informed consent was verified the patient was brought to the operating room and placed in a supine position. Anesthesia was administered per protocol. Patient was placed in modified dorsal lithotomy position and prepped and draped in a sterile fashion. Safety pause time-out was confirmed. Antibiotics have been given. A Twenty-four Cameroonian laser cystoscope was inserted per urethra. No abnormalities were found of the anterior and bulbar urethra. The prostatic urethra shows lateral lobe crowding. The bladder was examined and both ureteric orifices were seen in their normal positions away from the area of interest. Bladder trabeculation grade 2. Air bubble was located at the dome of the bladder. A finder needle was inserted 2 fingerbreaths above the symphysis pubis on the abdomen into the bladder.? The needle was visualized in the bladder via cystoscopy. Local anesthetic was infiltrated subcutaneously around the needle introduction site. A small, 1cm horizontal incision was made.? A trocar introducer was advanced through the abdominal wall into the bladder under visualization. The obturator was removed and a 16 Fr ackerman catheter placed. 7cc was used to inflate the balloon. The external portion of the trocar was removed. A GreenLight laser with attached pressure bag Normal Saline cooling irrigation was used. At initial setting of 80 no incisions were made at the 5 and 7 o'clock position. The incisions were taken down from the bladder neck down to the area just proximal of the veru. These were gradually deepened in order to define the lateral aspects of the median lobe area and separate the lateral lobe areas from the median lobe.. The deep boundary of enucleation was defined by the prostate surgical capsule. Once clearly defined the grooves were extended in the lateral directions in order to create a deep groove and begin to undermined the lateral lobe areas.. The median lobe was then ablated and enucleated tissue released into the bladder with the laser power increased to 120 W. this was accomplished by approaching the median lobe from each lateral incision and working from lateral to medial. Relatively small median lobe Once the median lobe area had been cleared, attention was directed to the lateral lobes. Starting with the patient's left lateral lobe. First the 05:00 o'clock groove was further developed. This was moved in the lateral direction to undermine the tissue on the lateral side running from the bladder neck to the prostate apex. The ureteric orifice was used to guide incisions. The laser fiber was placed at the 1 o'clock position and a secondary groove was developed down to the level of prostatic capsule. The creation of a second deep groove defined a segment of intervening tissue similar to a slice of orange. At the apex of the prostate the laser was used to vertically link the two grooves releasing the intervening tissue and creating a segment of tissue. This tissue was then removed with a combination of enucleation and ablation working from the apex toward the bladder neck. A similar procedure was repeated on the patient's right-hand side. The only differences being the position of the lateral groove at the 7 o'clock position and the secondary groove at the 11 o'clock position, Otherwise the procedure was developed in a mirror fashion. After the majority of tissue had been debulked remnant tissue was ablated with the side fire laser and the curve of the prostate followed up each side wall clearly defining the anterior remnant strip that remained between the 11 and 1 o'clock positions. In this case the anterior tissue protruded into the prostatic fossa and was partially ablated with the laser At completion debris and pieces of prostate were removed from the bladder with irrigation. Both ureteric orifices were reviewed again in shown to be patent in away from any areas of energy damage. The apical area was reviewed and any stray mucosal ooze was controlled. A 22 Cameroonian 30 cc balloon Ackerman catheter was placed into the bladder using a flexible stylet. Clear efflux was obtained upon irrigation with a Anisha piston syringe. 50 cc was placed in the balloon and gentle traction was placed. A snap was used to hold tension on the catheter to control bleeding during patient moved and transported. A drainage bag was placed. A belladonna and opiate suppository was placed in order to assist in postprocedure pain management. Once transportation is complete to the PACU the snap will be removed. The patient tolerated the procedure well, he was extubated in the operating and transferred in a stable condition to the recovery area. Total Power 98 kJ Lasing time 16:04 Pathology: Prostate tissue Drains: Ackerman catheter
[2025-03-07 08:49] VITALS: BP 118/98; PULSE 70; RESP 13; TEMP 36.1; O2SAT 93
[2025-03-07 08:50] VITALS: BP 122/53; PULSE 70; RESP 13; O2SAT 93
[2025-03-07 08:55] VITALS: BP 129/55; PULSE 70; RESP 13; O2SAT 93
[2025-03-07 09:00] VITALS: BP 125/96; PULSE 70; RESP 13; TEMP 36.1; O2SAT 93
[2025-03-07] MEDS: Tranexamic Acid 1,000 MG in 0.9 % Sodium Chloride 50 ML 360 MG IV (09:06)
[2025-03-07 09:15] VITALS: BP 127/60; PULSE 71; RESP 13; TEMP 36.1; O2SAT 93
== END 2025-03-07 10:11 | disposition home or self-care (01) ==
PROVIDERS: PCP Internal Medicine; Visit Provider Urology
PROC: (CPT 52648; principal; 2025-03-07 07:30)
PROC: (CPT 51102; 2025-03-07 07:30)
DX: N32.0 Bladder-neck obstruction (principal); N40.0 Benign prostatic hyperplasia without lower urinary tract symptoms; R33.9 Retention of urine, unspecified; N32.89 Other specified disorders of bladder; E11.39 Type 2 diabetes mellitus with other diabetic ophthalmic complication; E11.29 Type 2 diabetes mellitus with other diabetic kidney complication; N28.9 Disorder of kidney and ureter, unspecified; Z79.84 Long term (current) use of oral hypoglycemic drugs; G03.9 Meningitis, unspecified; I25.10 Atherosclerotic heart disease of native coronary artery without angina pectoris; I25.2 Old myocardial infarction; Z95.2 Presence of prosthetic heart valve; I10 Essential (primary) hypertension; E78.00 Pure hypercholesterolemia, unspecified; J44.9 Chronic obstructive pulmonary disease, unspecified; J61 Pneumoconiosis due to asbestos and other mineral fibers; G47.33 Obstructive sleep apnea (adult) (pediatric); E66.812 Obesity, class 2; Z68.35 Body mass index [BMI] 35.0-35.9, adult; Z79.899 Other long term (current) drug therapy; Z79.82 Long term (current) use of aspirin; F17.210 Nicotine dependence, cigarettes, uncomplicated
CPT/HCPCS: 52649; 51102; 82947; 88305; J1100; J1956; J2003; J2151; J2371; J2405; J2704; J2795; J3010

== ENCOUNTER → 2025-03-07 05:54 | Outpatient (BNV) | payer MEDICARE, OTHER, SELFPAY | PROVIDERS: PCP Internal Medicine; Visit Provider Urology | DX: N32.0 Bladder-neck obstruction (principal); R33.8 Other retention of urine | CPT/HCPCS: 52649 ==

== ENCOUNTER → 2025-03-09 08:42 | Outpatient (BNVA) | payer MEDICARE, OTHER, SELFPAY | PROVIDERS: PCP Internal Medicine; Visit Provider Urology | DX: R33.9 Retention of urine, unspecified (principal) | CPT/HCPCS: 51700 ==

== ENCOUNTER 2025-04-06 13:39 | Outpatient (AMB) | payer MEDICARE, OTHER, SELFPAY ==
--- NOTE | 2025-04-06 13:44 | A.OFFVIS_ITS ---
Intake Visit Reasons: Initial SP Tube Change(1st)-set Intake Note: Reason for Visit: Post Op Initial SP Tube Change Urology Meds: Tamsulosin, Finasteride Blood Thinners: Aspirin Labs: PSA- 3.09 (10/11/2024) Last Urine Culture: 11/05/2024 Imaging: None Pathology: TURP Pathology 03/07/2025 Last PVR: 0ml Caddie Supervisor Required: No Accompanied by: Spouse Allergies No Known Allergies Allergy (Verified 04/06/25 13:49) HPI Comments Details: Aura is a pleasant male. He is a patient of Dr. Mills. He is seen for the following urologic conditions - lower urinary tract symptoms One month follow-up Urinating per urethra Exchange suprapubic tube Twenty Belarusian May try capping catheter for potential removal GreenLight laser with suprapubic tube 03/22 Lower urinary tract symptoms Prostate volume 140 cc Placed on combination therapy Cystoscopy - trilobar hypertrophy Possible UTI Treat antibiotics PFSH Medical History (Updated 04/25/25 @ 09:52 by Shaun Yeboah MD) LUMBEE (hard of hearing) LBBB (left bundle branch block) History of transcatheter aortic valve replacement (TAVR) (08/16/24) Meningitis Asbestosis Hearing loss Hypercholesteremia Old myocardial infarction Allergic rhinitis Hypertension Prostatism 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 Generalized anxiety disorder COPD (chronic obstructive pulmonary disease) with emphysema Alcohol use disorder Pulmonary nodules Hairy cell leukemia Splenomegaly Aortic stenosis CAD (coronary artery disease) Nocturnal hypoxemia due to emphysema Obstructive sleep apnea (adult) (pediatric) Class 2 severe obesity with serious comorbidity and body mass index (BMI) of 35.0 to 35.9 in adult Surgical History Hx of colonoscopy Hx of tonsillectomy Hx of bilateral cataract extraction (01/2025) History of coronary angioplasty with insertion of stent Social History Household Members: Spouse Housing: Apartment Are you a primary healthcare prof to a significant other at home: No Do you presently have visiting nurse or other home services: No 75 years or older and lives alone: No Alcohol intake: current Alcohol intake frequency: does not drink Patient Tobacco Use Status: Current everyday Tobacco user Tobacco use type: Cigarette Cigarettes Per Day: 5 Years Smoked: 63 Review of Systems Const Denies chills and Denies fever(s) Card Reports no additional complaints and Denies syncope Resp Denies cough GI Denies abdominal pain and Denies heartburn Reports as per HPI and Denies change in libido Neuro Denies syncope Psych Denies change in libido Endo Denies change in libido Physical Exam Const General: cooperative, healthy appearing, comfortable and no acute distress Orientation/consciousness: patient oriented x3 HEENT Face and sinus: Yes normal facial exam Mouth: moist mucous membranes Neck Neck: Yes normal visual inspection, Yes full ROM and Yes trachea midline Chest Chest palpation & inspection: normal inspection of the chest Resp Effort & Inspection: normal respiratory effort, able to speak in complete sentences and no respiratory distress GI Inspection: Yes normal to inspection Back/Spine/Pelvis Cervical Spine: normal cervical lordosis Thoracic/Lumbar Spine: thoracic and lumbar spine normal to inspection Skin General skin exam: no rashes or lesions noted Neuro General: patient oriented x3, gait normal, tone normal and moves all extremities Extrem General: Yes normal to inspection and Yes capillary refill normal Office Procedures Bladder/Catheter Procedure Details: Upgrade suprapubic tube to 18 Belarusian Clean technique 63053-[id number] of bladder tube Procedure code (CPT) selection complete Assessment & Plan Assessment & Plan (1) Urinary retention: Code(s): R33.9 - Retention of urine, unspecified Category: Medical (2) Prostatism: Code(s): N40.0 - Benign prostatic hyperplasia without lower urinary tract symptoms Category: Medical (3) Suprapubic catheter: Code(s): Z93.59 - Other cystostomy status Category: Medical Plan 2 week trial of catheter cap Nurses to remove Patient Instructions: This note is constructed using voice recognition software. While every effort has been made to ensure accuracy cosmetics presser errors may have been included. Imaging studies, laboratory and physical exam results were discussed and reviewed in detail. No major barriers to patient understanding were identified. An opportunity to ask questions regarding the treatment plan was provided. All questions were answered. The patient expressed understanding and agreement with the above treatment plan. The patient is aware they should contact our office by phone for worsening of their current condition or the appearance of new urologic symptoms. Compliance is encouraged with any medications and followup testing that is ordered. It is a privilege to participate in the urologic care of your patient. If you have any questions or concerns regarding treatment for the above conditions, or other urologic issues, please do not hesitate to contact me. The office telephone contact is [phone]. Sincerely, Dr Shaun Yeboah MD, [facility] - Urology Compassionate Specialist Care for the Genitourinary System Coding Level of Care Code Est Pt Level 3 (24431) Diagnoses Urinary retention R33.9 Prostatism N40.0 Suprapubic catheter Z93.59 CPT Codes Bladder/Catheter Procedure - CPT: 58029-Khvxjt of bladder tube ([id number])
--- OUTSIDE RECORDS SUMMARY | 2025-04-06 21:10 | XMS_ITS | Clinical Summary ---
Author Organization [facility] Prior to 09/25/[address] [place] [address] Care Team Providers Care Coyote Hunter Name Role Phone Sharri Mills MD Primary Care Provider [phone] Allergies No known active allergies Medications Medication [...] age to complete this topic Care Teams Coyote Hunter Relationship Specialty Start Date End Date Sharri Mills MD PCP - General Internal Medicine 07/09/19
--- OUTSIDE RECORDS SUMMARY | 2025-04-06 21:10 | XMS_ITS | Clinical Summary ---
Author Organization 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 2 Active Trelegy Ellipta 100-62.5-25 mcg inhaler Inhale 1 puff (100 mcg total) by mouth 1 (one) time each day. 4 Active tamsulosin (FLOMAX) 0.4 mg 24 hr capsule Take 1 capsule (0.4 mg total) by mouth 1 (one) time each day. Capsules should be taken 30 minutes following the same meal each day. 90 each 1 4 Active blood sugar diagnostic (OneTouch Verio test strips) test stripIndications :Type 2 diabetes mellitus with stage 3 chronic kidney disease, without long-term current use of insulin, unspecified whether stage 3a or 3b CKD (CMS/HCC V24, CMS/HCC V28) DIRECTED TO TEST BLOOD SUGAR ONCE DAILY 100 strip 3 5 Active pravastatin (PRAVACHOL) 40 mg tablet TAKE 1 TABLET(40 MG) BY MOUTH 1 TIME EACH DAY 90 tablet 1 5 Active omeprazole (PriLOSEC) [address] capsule TAKE 1 CAPSULE(20 MG) BY MOUTH 1 TIME EACH DAY. DO NOT CRUSH OR CHEW 90 capsule 1 5 Active colchicine (COLCRYS) 0.6 mg tabletIndication s:Pericardial effusion Take 1 tablet (0.6 mg total) by mouth 2 (two) times a day. 60 each 5 10/16/19 Active aspirin 325 mg tabletIndication s:Pericardial effusion Take 2 tablets (650 mg total) by mouth 3 (three) times a day. 180 each 5 10/16/19 Active Additional Information Patient taking differently:650 mg oral2 times daily, Reported on 02/01/2025 finasteride (PROSCAR) 5 mg tablet Take 1 tablet (5 mg total) by mouth 1 (one) time each day. Do not crush, chew, or split. Active lisinopriL (PRINIVIL,ZESTRI L) 20 mg tablet Take 0.5 tablets (10 mg total) by mouth 1 (one) time each day. 5 Active dapagliflozin propanediol (Farxiga) 10 mg tablet Take 1 tablet (10 mg total) by mouth 1 (one) time each day. 90 tablet 1 5 Active metFORMIN (GLUCOPHAGE) 500 mg tablet TAKE 2 TABLETS BY MOUTH TWICE DAILY WITH MEALS 360 tablet 1 5 Active metoprolol succinate (Toprol XL) 100 mg 24 hr tablet Take 1 tablet (100 mg total) by mouth 1 (one) time each day. Do not crush or chew. 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 Notes reviewed. He will continue routine follow-up Tobacco use disorder 01/21/2025 Assessment & Plan (01/21/2025 5:14 PM EDT): He is not ready to quit smoking. Cessation counseling provided Gastroesophageal reflux disease without esophagi tis 01/21/2025 Assessment & Plan (01/21/2025 5:14 PM EDT): Continue omeprazole Left bundle branch block (LBBB) 12/31/2024 Assessment & Plan (02/01/2025 9:51 AM EDT): Present since TAVR, but without progression to high degree AV block. Not candidate for BiV ICD due to pEF on last echocardiogram. Assessment & Plan (01/21/2025 5:14 PM EDT): Continue cardiology follow-up and meds as above Assessment & Plan (12/31/2024 1:40 PM EDT): Patient developed a new left bundle branch block post TAVR. During hospitalization there was a reduction in his LVEF. Subsequently, he has been referred to our EP service and has an appointment in [address] Pedersen to further discuss [employer] therapy. Pericardial effusion 10/15/2024 Overview (10/25/2024): September 2024 - echocardiogram showing large pericardial effusion; sed rate negative and crp elevated; started on aspirin and colchicine Assessment & Plan (02/01/2025 9:51 AM EDT): No evidence of cardiac tamponade at this time. Echocardiogram from December showed small effusion. He will continue with high dose aspirin and colchicine for now. Also awaiting repeat echocardiogram in January. Assessment & Plan (01/21/2025 5:14 PM EDT): Continue colchicine and aspirin. Recent echocardiogram shows only small effusion which is much improved Continue cardiology follow-up Assessment & Plan (12/31/2024 1:40 PM EDT): [...] repeat echocardiogram in November. 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 Notes reviewed. He will continue routine follow- up Assessment & Plan (03/23/2024 11:52 AM EST): Splenomegaly 03/22/2024 Obstructive sleep apnea 07/20/2021 Overview (03/22/2024): [facility] Home sleep test 07/10/2021; weight 225; BMI 36. AHI 14. 11 obstructive apneas and 58 hypopneas. Average oxygen saturation 92% with oxygen rebecca 77%. Obstructive sleep apnea-mild mostly hypopneas but with some obstructive apneas and nocturnal hypoxemia 8% of the study; based on 2021 home sleep test. Assessment & Plan (01/21/2025 5:14 PM EDT): HE DOES NOT USE HIS CPAP MACHINE AND RETURNED IT YESTERDAY. He is advised of the detrimentsl to his health that could occur with uncontrolled sleep apnea. In spite of this, he has no interest in any CPAP machine in the future and declines a pulmonology referral Nocturnal hypoxia 12/27/2020 Overview (03/22/2024): 12/21/2020 overnight oximetery shows Decrease in oxygen during 11min of sleep which qualifies patient for oxygen during night. Lowest oxygen was 79% History of transcatheter aortic valve replacemen t (TAVR) 09/16/2019 Overview (02/01/2025): August 16, 2024 - successful TAVR utilizing a 26 mm YANETH 3 valve via the right femoral artery by Dr. Hernandez at [facility]; post development the patient developed a new LBBB; he was discharged on aspirin monotherapy and Zio patch 01/04/25 TRANSTHORACIC ECHOCARDIOGRAM (TTE) COMPLETE (CONTRAST/BUBBLE/3D PRN) 01/13/2025 01/04/2025 Interpretation Summary Left ventricle cavity size is normal. Left [...] November, there is now a small effusion. Signed by: Ming Maldonado MD on 01/13/2025 9:05 AM Assessment & Plan (02/01/2025 9:51 AM EDT): Successful TAVR using 26 mm YANETH 3 Bioprosthetic valve on 08/16/24. Developed LBBB and now on Zio patch. The patient is feeling better, but it is unclear by how much given he has been restricting his activities. His valve is working well on exam, by echocardiogram and by symptoms. Instructed him about the need for prophylactic antibiotics prior to dental work. Continue with aspirin. Assessment & Plan (10/25/2024 4:13 PM EDT): [...] - repeat LDCT scan in 6 months Assessment & Plan (01/21/2025 5:14 PM EDT): Had CT in October for the pericardial effusion. 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 120PPD. Sees thoracic surgery for lung cancer screen. Assessment & Plan (01/21/2025 5:14 PM EDT): Not using Trelegy daily or albuterol. 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 Last A1c was 5.8. Continue metformin and lisinopril Assessment & Plan (03/23/2024 11:52 AM EST): Orders: Trulicity 3 mg/0.5 mL pen injector injection; Inject 0.5 mL (3 mg total) under the skin 1 (one) time per week. Type II diabetes mellitus with ophthalmic manife stations 12/01/2013 Overview (03/22/2024): NS noted on eye exam 12/13/11. Microalbuminuria 06/26/2012 Prostatism 05/02/2010 Assessment & Plan (01/21/2025 5:14 PM EDT): Continue finasteride 5 mg daily,tamsulosin 0.4 mg daily Hypertension 04/15/2007 Assessment & Plan (02/01/2025 9:51 AM EDT): Controlled. Continue with lisinopril, isosorbide and metoprolol. Assessment & Plan (01/21/2025 5:14 PM EDT): Continue metoprolol, lisinopril. Blood pressure is well-controlled at 117/59 Assessment & Plan (10/25/2024 4:13 PM EDT): [...] - angiogram in setting of inferior wall NJ with stenting of OM March 30, 2020 [...] on 06/11/2024 10:12 AM Assessment & Plan (02/01/2025 9:51 AM EDT): Catheterization from 2024 showed patent stent with no other significant disease elsewhere. Echocardiogram from 2024 showed preserved LV systolic function. No anginal symptoms. Continue with aspirin (on high dose for now), pravastatin, lisinopril, metoprolol and isosorbide. We discussed risk reduction through lifestyle choices including healthy diet, routine exercise and weight management. Referral sent in for cardiac rehab. Assessment & Plan (01/21/2025 5:14 PM EDT): Continue aspirin and statin Assessment & Plan (12/31/2024 1:40 PM EDT): [...] O update Hypercholesterolemia 07/07/2005 Assessment & Plan (02/01/2025 9:51 AM EDT): June 2023 - LDL of 155. Continue with pravastatin. Assessment & Plan (01/21/2025 5:14 PM EDT): Continue pravastatin Assessment & Plan (10/25/2024 4:13 PM EDT): [...] Encounters Date Type Department Care Team Description 03/16/2025 8:00 AM EST Office Visit [address] [phone] Pippa Marte PA Type 2 diabetes mellitus with stage 3 chronic kidney disease, without long-term current use of insulin, unspecified whether stage 3a or 3b CKD (CMS/HCC V24, CMS/HCC V28) (Primary Dx); Primary hypertension; Hypercholesterolemia; Stage 3a chronic kidney disease ([facility] V24, [facility] V28) 02/28/2025 Results Follow-Up [facility] Cardiology [facility] [address] [place] [phone] Catrachito Chapman NP 02/22/2025 8:00 AM EDT Ancillary Procedure [facility] [address] [place] [phone] Pericardial effusion 02/01/2025 9:10 AM EDT Office Visit [facility] Cardiology [facility] [address] [place] [phone] Rocky Hutchinson NP History of transcatheter aortic valve replacement (TAVR) (Primary Dx); Coronary artery disease, unspecified vessel or lesion type, unspecified whether angina present, unspecified whether ho-chunk or transplanted heart; Primary hypertension; Hypercholesterolemia; Pericardial effusion; Left bundle branch block (LBBB) 01/24/2025 Results Follow-Up Adult Medicine [address] [phone] Saadia Lombardo MD 01/21/2025 10:00 AM EDT Consult Adult Medicine [address] [phone] Saadia Lombardo MD Preop cardiovascular exam (Primary Dx); Tobacco use disorder; Pulmonary nodules; Type 2 diabetes mellitus with diabetic microalbuminuria, without long-term current use of insulin ([facility] V24, [facility] V28); Hypercholesterolemia; Pericardial effusion; Left bundle branch block (LBBB); Primary hypertension; Heart failure with improved ejection fraction (HFimpEF) ([facility] V24, [facility] V28); Coronary artery disease involving ho-chunk coronary artery of ho-chunk heart without angina pectoris; Obstructive sleep apnea; Other emphysema ([facility] V24, [facility] V28); Hairy cell leukemia, in relapse ([facility] V24, [facility] V28); Stage 3 chronic kidney disease, unspecified whether stage 3a or 3b CKD ([facility] V24, [facility] V28); Need for hepatitis C screening test; Prostatism; Gastroesophageal reflux disease without esophagitis 01/18/[address] [facility] Cardiology [facility] [address] [facility] [address] [place] [phone] Ming Maldonado MD 01/13/[address] [facility] Cardiology [facility] [address] [facility] [address] [place] [phone] Catrachito Chapman NP 01/10/2025 10:25 AM EDT Consult [facility] [address] [facility] [address] [place] [phone] Kelton Pedersen MD LBBB (left bundle branch block) (Primary Dx) 01/10/2025 Telephone [facility] Hematology Oncology [address] [place] [phone] Kt Roa MD 01/06/2025 1:00 PM EDT Office Visit Nephrology [address] [phone] Bharath Gonzalez MD Stage 3 chronic kidney disease, unspecified whether stage 3a or 3b CKD ([facility] V24, [facility] V28) (Primary Dx); Type 2 diabetes mellitus with diabetic nephropathy, without long-term current use of insulin ([facility] V24, [facility] V28); Hypertension, unspecified type; Microalbuminuria 01/06/2025 8:45 AM EDT Office Visit [facility] Hematology Oncology [address] [place] [phone] Kt Roa MD Hairy cell leukemia, in relapse ([facility] V24, [facility] V28) (Primary Dx) from Last 3 Months Immunizations Immunization Administration Dates Next Due H1N1 Inj Preservative Free 05/03/2009 Influenza Quadravalent, MDCK , 0.5ml, preservative free (Flucelvax) 6mo and older 01/17/2021,05/13/2018 Influenza trivalent, 0.5mL ( Fluad) 65yo and older 01/21/2025,03/23/2024 Influenza trivalent, 0.5mL ( Fluzone High-dose) 65yo [...] subun it RSVpreF, 0.5mL, Preservative Free (Arexvy) 50yo and older 04/07/2023 TD, Adsorbed, Preservative Free [...] (coronary artery disease) Hypercholesteremia Hearing loss Asbestosis ([facility] V24, [facility] V28) Hypertension Prostatism 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 ([facility] V24, [facility] V28) NETTA (obstructive sleep apnea) Aortic stenosis 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[facility] V24, [facility] V28) COPD (chronic obstructive pu lmonary disease) ([facility] V24, [facility] V28) NETTA (obstructive sleep apnea) Nocturnal hypoxemia due to emphysema ([facility] V2 4, [facility] V28) Splenomegaly Anxiety Pulmonary nodules Alcohol use disorder, severe , dependence ([facility] V24, [facility] V28) 06/30/2019 History of transcatheter aortic valve replacemen t (TAVR) 09/16/201908/20 Hearing loss Family History Medical History Relation Name Comments Diabetes Father stroke Cataracts Mother Relation Name Status Comments Father Mother Social History Tobacco Use Types Packs/Day Years Used Date Smoking Tobacco: Every Day Cigarettes 1 64.9 Started: 1960 Smokeless Tobacco: Never Alcohol Use [...] Date Recorded What is your living situation? Unrecognized valu e 11/26/2024 Sex and Gender Information Value Date Recorded Sex Assigned at Male 06/08/2024 11:45 AM EST Legal Sex Male 10:29 AM EST Gender Identity Male 06/08/2024 11:45 AM EST Sexual Orientation Straight 06/08/2024 11 :45 AM EST Last Filed Vital Signs Vital Sign Reading Time Taken Comments Blood Pressure 110/61 03/16/2025 8:05 AM EST Pulse 80 03/16/2025 8:05 AM EST Temperature 36.3 C (97.3 F) 01/21/2025 9:54 AM EDT Respiratory Rate 14 03/16/2025 8:05 AM EST Oxygen Saturation 95% 02/01/2025 9:06 AM EDT Inhaled Oxygen Concentration - - Weight 80.3 kg (177 lb) 03/16/2025 8:05 AM EST Height 167.6 cm (5' 6 ) 03/16/2025 8:05 AM EST Body Mass Index 28.57 03/16/2025 8:05 AM EST Plan of Treatment Upcoming Encounters Date Type Department Care Team (Late st Contact Info) Description 05/10/2025 8:45 AM EST Office Visit [facility] Hematology Oncology [address] [place] [phone] Kt Roa MD [address] [place] [address] 06/23/2025 8:30 AM EST Office Visit Endocrinology [address] [phone] Pippa Marte PA [address] [place] [address] 08/01/2025 8:30 AM EDT Office Visit [facility] Hematology Oncology [address] [place] [phone] Kt Roa MD [address] [place] [address] 01/26/2026 1:00 PM EDT Office Visit Nephrology - [place] [address] [place], [place] [phone] Bharath Gonzalez MD [address] [phone] Health Maintenance Due Date Last Done Comments Diabetes: Annual Foot Exam 08/15/1955 Lung Cancer Screening (Low Dose CT) 01/09/2023 01/09/2022, 01/07/2021 COVID-19 Vaccine ( season) 2024 04/07/2023, 03/05/2022, 04/18/2021, Additional history exists Diabetes: Annual Urine Albumin-Creatinine [...] 04/07/2023, 11/27, 01/09/2012 Depression Screening Completed 12/27/2024 Hepatitis C Screening Completed 01/21/2025 Influenza Vaccine Completed 01/21/2025, , 12/21/2022, Additional history exists HIB Vaccines Aged Out [...] Procedure Name Priority Date/Time Associated Diagnosis Comments TRANSTHORACIC ECHOCARDIOGRAM (TTE) LIMITED WITH DOPPLER Routine 02/22/2025 8:14 AM EDT Pericardial effusion HEPATITIS C ANTIBODY Routine 01/21/2025 10:48 AM EDT Need for hepatitis C screening test ECG 12-LEAD Routine 01/10/2025 10:55 AM EDT LBBB (left bundle branch block) HEMOGLOBIN A1C Routine 12/28/2024 10:28 AM EDT Type 2 diabetes mellitus with stage 3a chronic kidney disease, without long-term current use of insulin ([facility] V24, [facility] V28) COMPREHENSIVE METABOLIC PANEL Routine 11/29/2024 10:33 AM EDT Hairy cell leukemia, in remission ([facility] V24, [facility] V28) EXTERNAL DIABETIC RETINA EYE EXAM 11/15/2024 LIPID PANEL WITH REFLEX TO DIRECT LDL Routine 03/23/2024 12:11 PM EST Hypercholesterolem ia MICROALBUMIN CREATININE URINE RATIO Routine 03/16/2024 8:40 AM EST Stage 3 chronic kidney disease ([facility] V24, [facility] V28) Type 2 diabetes mellitus ([facility] V24, [facility] V28) CT LUNG SCREENING LOW DOSE Routine 01/09/2022 3:31 PM EDT Personal history of nicotine dependence from Last 3 Months or Most Recently Relevant to Health Maintenance Results * TRANSTHORACIC ECHOCARDIOGRAM (TTE) LIMITED WITH DOPPLER (02/22/2025 8:14 AM EDT) IVC Proximal 1.1 cm CV PACS BSA 1.96 m2 CV PACS Est. RA Pressure 3 mmHg CV PACS Anatomical Region Laterality Modality Ultrasound Narrative 02/25/2025 3:37 PM EDT Left ventricle cavity size is normal. Right ventricular systolic function is normal. Trivial pericardial effusion. Compared to the prior echo the effusion is slightly smaller. Left Ventricle Left ventricle cavity size is normal. Right Ventricle Systolic function is normal. IVC/SVC RA pressures is estimated to be 3 mmHg (IVC diameter <21 mm and decreases >50% during inspiration). Pericardium There is an fat pad. There is a trivial pericardial effusion. Study Details Overall the study quality was technically difficult. us Catrachito Chapman NP CV ECHO PROCEDURES Fin al Result * Hepatitis C antibody (01/21/2025 10:48 AM EDT) Pathologist [facility] Hepatitis C Antibody Negative Negative LAB CHEMISTRY METHOD 01/21/2025 2:58 PM EDT [facility] Blood Venous blood specimen / Unknown Venipuncture / Unknown 01/21/2025 10:48 AM EDT 01/21/2025 10:48 AM EDT Saadia Lombardo MD LAB BLOOD ORDERA BLES Final Result [facility] [address] [place] [address], [place] [phone] * ECG 12 lead (01/10/2025 10:55 AM EDT) [facility] Ventricular Rate ECG 93 BPM GEMUSE Atrial Rate 93 BPM GEMUSE P-R Interval 170 ms GEMUSE QRS Duration 154 ms GEMUSE Q-T Interval 416 ms GEMUSE QTc 517 ms GEMUSE P Wave [place] 56 degrees GEMUSE R [place] 55 degrees GEMUSE T [place] -170 degrees GEMUSE ECG Interpretation Normal sinus rhythm Left bundle branch block Abnormal ECG When compared with ECG of 31-DEC-2024 13:02, No significant change was found Confirmed by Marlon PEDERSEN JOHN ([id number]) on 01/17/2025 7:50:52 AM GEMUSE 01/10/2025 10:2 3 AM EDT 01/17/2025 7:50 AM EDT Kelton Pedersen MD ECG ORDERABLES Edited Result - Final GEMUSE * Hemoglobin A1c (12/28/2024 10:28 AM EDT) [facility] Hemoglobin A1C 5.8 <6.5 % LAB CHEMISTRY METHOD 12/28/2024 2:21 PM EDT [facility] Mean Bld Glu Estim. 120 mg/dL LAB CHEMISTRY METHOD 12/28/2024 2:21 PM [facility] Blood Venous blood specimen / Unknown Venipuncture / Unknown 12/28/2024 10:28 AM EDT 12/28/2024 10:28 AM EDT us [place] [facility] LAB BLOOD ORDERABLES Final Re sult [facility] [address] [place] [address], * (ABNORMAL) Comprehensive metabolic panel (11/29/2024 10:33 AM EDT) Sodium 141 133 - 145 mmol/L LAB CHEMISTRY METHOD 11/29/2024 2:52 PM [facility] Potassium 4.5 3.5 - 5.5 mmol/L LAB CHEMISTRY METHOD 11/29/2024 2:52 PM [facility] Chloride 109 96 - 110 mmol/L LAB CHEMISTRY METHOD 11/29/2024 2:52 PM [facility] CO2 26 21 - 32 mmol/L LAB CHEMISTRY METHOD 11/29/2024 2:52 PM [facility] Anion Gap 6 3 - 11 LAB CHEMISTRY METHOD 11/29/2024 2:52 PM [facility] Glucose 88 70 - 100 mg/dL LAB CHEMISTRY METHOD 11/29/2024 2:52 PM [facility] BUN 30(H) 5 - 25 mg/dL LAB CHEMISTRY METHOD 11/29/2024 2:52 PM [facility] Creatinine 1.48(H) 0.70 - 1.30 mg/dL LAB CHEMISTRY METHOD 11/29/2024 2:52 PM [facility] eGFR 48(L) >=60 mL/min/1. 73m2 LAB CHEMISTRY METHOD 11/29/2024 2:52 PM [facility] Comment:Calculation based on the Chronic Kidney Disease Epidemiology Collaboration (CKD-EPI) equation refit without adjustment for race. BUN/Creatinine Ratio 20.3 LAB CHEMISTRY METHOD 11/29/2024 2:52 PM EDT [facility] Calcium 9.1 8.5 - 10.5 mg/dL LAB CHEMISTRY METHOD 11/29/2024 2:52 PM [facility] AST (SGOT) 22 10 - 42 unit/L LAB CHEMISTRY METHOD 11/29/2024 2:52 PM [facility] ALT (SGPT) 31 10 - 60 unit/L LAB CHEMISTRY METHOD 11/29/2024 2:52 PM [facility] Alkaline Phosphatase 89 42 - 121 unit/L LAB CHEMISTRY METHOD 11/29/2024 2:52 PM [facility] Total Protein 7.4 6.0 - 8.0 g/dL LAB CHEMISTRY METHOD 11/29/2024 2:52 PM [facility] Albumin 3.7 3.2 - 5.0 g/dL LAB CHEMISTRY METHOD 11/29/2024 2:52 PM [facility] Total Bilirubin 0.3 0.0 - 1.4 mg/dL LAB CHEMISTRY METHOD 11/29/2024 2:52 PM [facility] Blood Venous blood specimen / Unknown Venipuncture / Unknown 11/29/2024 10:33 AM EDT 11/29/2024 11:21 AM EDT us Kt Roa MD LAB BLOOD ORDERABLES Final R esult [facility] [address] [place] [address], [place] [phone] * External Diabetic Retina Eye Exam Report (11/15/2024) Anatomical Region Laterality Modality Ultrasound us Provider [facility] US PROCEDURES Final Result * Lipid panel with reflex to direct LDL (03/23/2024 12:11 PM EST) Cholesterol 133 0 - 200 mg/dL LAB CHEMISTRY METHOD 03/23/2024 2:40 PM EST [facility] Triglycerides 123 0 - 150 mg/dL LAB CHEMISTRY METHOD 03/23/2024 2:40 PM [facility] LAB HDL 52 >=40 mg/dL LAB CHEMISTRY METHOD 03/23/2024 2:40 PM EST [facility] LDL Calculated 56 0 - 100 mg/dL LAB CHEMISTRY METHOD 03/23/2024 2:40 PM EST [facility] VLDL Cholesterol Brad 24.6 mg/dL LAB CHEMISTRY METHOD 03/23/2024 2:40 PM [facility] Non HDL Chol. (LDL+VLDL) 81 <145 mg/dL LAB CHEMISTRY METHOD 03/23/2024 2:40 PM [facility] Chol/HDL Ratio 2.6 0.0 - 4.4 LAB CHEMISTRY METHOD 03/23/2024 2:40 PM [facility] Blood Venous blood specimen / Unknown Venipuncture / Unknown 03/23/2024 12:11 PM EST 03/23/2024 12:11 PM EST us Sharri Mills MD LAB BLOOD ORDERABLES Final Resul t [facility] [address] [place] [address], * (ABNORMAL) Microalbumin creatinine urine ratio (03/16/2024 8:40 AM EST) Creatinine, Urine 235.0 mg/dL LAB CHEMISTRY METHOD 03/16/2024 11:01 AM [facility] Microalb, Ur 790.0(H) 0.0 - 29.0 mg/L LAB CHEMISTRY METHOD 03/16/2024 11:01 AM [facility] Microalb/Crea t Ratio 336(H) <30 mg/g creat LAB CHEMISTRY METHOD 03/16/2024 11:01 AM EST [facility] Urine Urine specimen obtained by clean catch procedure / Unknown Non-blood Collection / Unknown 03/16/2024 8:40 AM EST 03/16/2024 8:40 AM EST us Bharath Gonzalez MD LAB URINE ORDERABLES Final Res ult [facility] ([facility] [address] [place] [address], [place] [phone] * CT LUNG SCREENING LOW DOSE (01/09/2022 3:31 PM EDT) Anatomical Region Laterality Modality Computed Tomogra phy 01/09/2022 9:31 AM EDT Narrative 01/09/2022 3:[address] [facility] Diagnostic Imaging Department [address] [place] [address] Patient: NATHALIEMATYBILLIEO.B./Age/Sex: 1945 - 76 - M Unit#: [id number] Location/Status: SPDICATLS/REG CLI Mnemonic/Ordering Site: [facility] Ordering Physician: ISAIAS MARTIN MD CT Lung Screening Low Dose - 01/09/22937 Indication: 120 pack-year smoking history (2pack/day for 60 years), current smoker Technique: Low-dose CT scan of the chest obtained as a lung cancer screening study. Multiplanar reformatted images were obtained. Scanner: mobintent Dose reduction technique: ASIR (Adaptive statistical iterative [...] [facility] Diagnostic Imaging Department [address] [place] [id number] Patient: BILLIE BALDERAS /Age/Sex: 1945 - 76 - M Unit#: [id number] Location/Status: SPDICATLS/REG CLI Mnemonic/[facility] Ordering Physician: ISAIAS MARTIN MD CT Lung Screening Low Dose - 01/09/22937 Indication: 120 pack-year smoking history (2pack/day for 60 years),current smoker Technique: Low-dose CT scan of the chest obtained as a lung cancerscreening study. Multiplanar reformatted images were obtained. Scanner: mobintent Dose reduction technique: ASIR (Adaptive statistical iterativereconstruction) [...] in the right lower lobe also noted ([id number]). No interval development of suspicious pulmonary nodule. 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 - General 11/23/01
--- OUTSIDE RECORDS SUMMARY | 2025-04-06 21:10 | XMS_ITS ---
Author Organization [facility] Address [address] [place] [address] Phone Care Team Providers Care Cigar Brander Name Role Phone Sharri Mills MD Primary Care Provider [phone] Active Problems Problem Noted Date Diagnosed Date [...] weeks with Dr. Pedersen to further discuss BUYER AGENT-D therapy. Pericardial effusion 10/15/2024 Overview (10/25/2024): September [...] sleep apnea 07/20/2021 Overview (03/22/2024): [facility] Home sleep test 07/10/2021; weight 225; [...] right femoral artery by Dr. 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 Past Treatment and Therapy Plans No past plan information found. Lifetime Dose Tracking * Chemical Lifetime Dose Automatic Entry Manual Entr y Radiation 536 mGy 0 mGy 536 mGy Fluoro Time 4.7 minutes 0 minutes 4.7 minutes Resolved Problems Problem Noted Date Diagnosed Date Resolved Date Alcohol use disorder, severe, dependence 06/30/2019 03/22/2024
--- OUTSIDE RECORDS SUMMARY | 2025-04-06 21:10 | XMS_ITS | Encounter Summary ---
Author Organization [facility] Address [address] [place] [address] Care Team Providers Care Res Habilitation Assistant Name Role Phone Sharri Mills MD Primary Care Provider [phone] Encounter Details Date Type Department Care Team (Late st Contact Info) Description 02/28/2025 Results Follow-Up [facility] [address] [facility] [address] [place] [address] Tiffany Chapman NP [address] [place] [address] [place] [address] Social History Tobacco Use Types Packs/Day Years Used Date Smoking Tobacco: Every Day Cigarettes 1 64.9 Started: 1 Smokeless Tobacco: Never Alcohol Use Standard Drinks/Week [...] AM EST documented as of this encounter Plan of Treatment Upcoming Encounters Date Type Department Care Team (Late st Contact Info) Description 05/10/2025 8:45 AM EST Office Visit [facility] Hematology Oncology [address] [place] [phone] Kt Roa MD [address] [place] [address] 06/23/2025 8:30 AM EST Office Visit Endocrinology - [place] [address] [place] [address] Pippa Marte PA [address] [place], [place] 08/01/2025 8:30 AM EDT Office Visit [facility] Hematology Oncology [address] [place] [address] Kt Roa MD [address] [place] [address] 01/26/2026 1:00 PM EDT Office Visit Nephrology - [address] [phone] Bharath Gonzalez MD [address] [phone] documented as of this encounter Visit Diagnoses Not on filedocumented in this encounter Additional Health Concerns Assessment Noted Time PHQ-9 Depression Total Score: 0 12/28/19 25 9:20 PM EDT A fall risk assessment has been complete d for the patient 03/19/2024 1:13 PM EST documented as of this encounter Care Teams Res Habilitation Assistant Relationship Specialty Start Date End Date Sharri Mills MD [address] [place] [address] PCP - General 11/23/01 documented as of this encounter
== END 2025-04-06 14:28 | disposition home or self-care (01) ==
LOC: HO.HUSH 13:39
PROVIDERS: PCP Internal Medicine; Visit Provider Urology
DX: R33.9 Retention of urine, unspecified (principal); N40.0 Benign prostatic hyperplasia without lower urinary tract symptoms; Z93.59 Other cystostomy status
CPT/HCPCS: 99024

== ENCOUNTER → 2025-04-06 13:39 | Outpatient (BNVA) | payer MEDICARE, OTHER, SELFPAY | PROVIDERS: PCP Internal Medicine; Visit Provider Urology | DX: Z43.5 Encounter for attention to cystostomy (principal); N40.1 Benign prostatic hyperplasia with lower urinary tract symptoms; R33.8 Other retention of urine | CPT/HCPCS: 51705; 99212 ==

== ENCOUNTER → 2025-04-19 10:24 | Outpatient (BNVA) | payer MEDICARE, OTHER, SELFPAY | PROVIDERS: PCP Internal Medicine; Visit Provider Urology | DX: N39.0 Urinary tract infection, site not specified (principal); R33.9 Retention of urine, unspecified | CPT/HCPCS: 51798 ==